=== PATIENT | male | born 1945 ===

== ENCOUNTER 2017-12-06 | Inpatient (IN) | payer MEDICAID, OTHER ==
[2017-12-06] MEDS ORDERED: Morphine 4 MG/ML VIAL ONE (01:35)
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
[2017-12-06 02:01] LABS: BASO % 0.7 % (0.0-2.0); EOS % 0.6 % (0.0-4.0); HEMOGLOBIN 9.1 g/dL (12.0-18.0); LYMPH # 0.9 K/uL (1.0-4.3); LYMPH % 14.3 % (20.0-40.0); MEAN CELL VOLUME 92.8 fl (80.0-94.0); MEAN CORPUSCULAR HEMOGLOBIN 30.1 pg (27.0-31.0); MEAN CORPUSCULAR HGB CONC 32.4 g/dL (33.0-37.0); MEAN PLATELET VOLUME 8.2 fl (7.2-11.7); MONO # 0.6 K/uL (0.0-0.8); MONO % 10.2 % (0.0-10.0); NEUT # 4.4 K/uL (1.8-7.0); NEUT % 74.2 % (50.0-75.0); RBC 3.02 Mil/uL (4.40-5.90); RED CELL DISTRIBUTION WIDTH 18.7 % (11.5-14.5)
[2017-12-06 02:09] LABS: INR 1.5 (0.9-1.2)
[2017-12-06 02:10] LABS: PARTIAL THROMBOPLASTIN TIME 29.3 Seconds (25.6-37.1)
[2017-12-06 02:26] LABS: ALB/GLOB RATIO 1.1 (1.0-2.1); ALBUMIN 3.5 g/dL (3.5-5.0); ALT/SGPT 35 U/L (21-72); AST/SGOT 20 U/L (17-59); BLOOD UREA NITROGEN 42 mg/dl (9-20); CALCIUM 8.6 mg/dL (8.4-10.2); GFR AFRICAN-AMERICAN 8; GFR NON-AFRICAN AMERICAN 6; HDL CHOLESTEROL 33 MG/DL (30-70); LDL CHOLESTEROL < 30 mg/dL (0-129)
--- NOTE | 2017-12-06 03:40 | CP.PCM.HP ---
History of Present Illness - History of Present Illness History of Present Illness: PCP: None Crowd Controller: Rudi Caldwell MD Chief complaint: Headache /Right side numbness The patient was seen and examined in the ED with his present HPI: The hx was obtained from the patient's , discussion with the ED Physician and after review of the medical chart.He is a 71 years old male with hx of ESRD on HD MWF , liver cirrhosis with Upper GI bleed twice, last admitted 6 days to the [facility] [place] discharged on Thursday with Dx of upper GI bleed from esophageal Varices. EGD and Transfusion of 2 PRBC was done prior to DC. He comes referring 6 days now of left sided headache an d3 days of numbness to the right lower, upper extremities with chills and fever on some days. the family also referred a brief episode of right upper extremity weakness that has resolved and slurred speech which leave only difficulty to find words. No SOB, Chest Pain, Diarrhea, and he is oliguric. In The ED his NIHSS score was 0 PMH: ESRD on HD MWF; HTN; Liver Cirrhosis; with Esophageal Varices; Upper GI bleed X2; Right wrist with foreign body, Metal? PSH: EGD X2; Left A-V Shunt SH: Stopped drinking Alcohol 7 years ago; Former Smoker; no Illegal drug use; Live with FH: States: No Known Family Hx, Unknown Family Hx Allergies: NKDA Medication: Reviewed Present on Admission - Present on Admission Any Indicators Present on Admission: No History of DVT/PE: No History of Uncontrolled Diabetes: No Urinary Catheter: No Decubitus Ulcer Present: No Review of Systems - Review of Systems Review of Systems: Review of system is limited because of the patients poor Communication and CVA. Past Patient History - Past Medical History & Family History Past Medical History?: Yes - Past Social History Smoking Status: Former Smoker Chewing Tobacco Use: No Alcohol: Other Drugs: Denies Home Situation {Lives}: With Family - CARDIAC Hx Hypertension: Yes - PULMONARY Hx Respiratory Disorders: No - NEUROLOGICAL Hx Neurological Disorder: No - HEENT Hx HEENT Problems: No - RENAL Hx Chronic Kidney Disease: Yes - ENDOCRINE/METABOLIC Hx Endocrine Disorders: No - HEMATOLOGICAL/ONCOLOGICAL Hx Blood Disorders: No - INTEGUMENTARY Hx Dermatological Problems: No - MUSCULOSKELETAL/RHEUMATOLOGICAL Hx Musculoskeletal Disorders: No Hx Falls: No - GASTROINTESTINAL Hx Gastrointestinal Disorders: No - GENITOURINARY/GYNECOLOGICAL Hx Genitourinary Disorders: No - PSYCHIATRIC Hx Psychophysiologic Disorder: No Hx Substance Use: No - SURGICAL HISTORY Hx Surgeries: Yes Other/Comment: Left AV shunt - ANESTHESIA Hx Anesthesia: No Meds Allergies/Adverse Reactions: Allergies Allergy/AdvReac Type Severity Reaction Status Date / Time No Known Allergies Allergy Verified 12/06/17 03:41 Physical Exam - Constitutional Appears: In Acute Distress - Head Exam Head Exam: ATRAUMATIC, NORMAL INSPECTION, NORMOCEPHALIC - Eye Exam Eye Exam: EOMI, Normal appearance Pupil Exam: NORMAL ACCOMODATION, PERRL - ENT Exam ENT Exam: Mucous Membranes Moist, Normal Exam, Normal External Ear Exam - Neck Exam Neck exam: Positive for: Full Rom, Normal Inspection - Respiratory Exam Respiratory Exam: Clear to Auscultation Bilateral. absent: Rales, Rhonchi, Wheezes - Cardiovascular Exam Cardiovascular Exam: +S1, +S2, +S4 - GI/Abdominal Exam GI & Abdominal Exam: Normal Bowel Sounds, Soft. absent: Mass, Tenderness - Rectal Exam Rectal Exam: Deferred - Extremities Exam Extremities exam: Positive for: normal inspection. Negative for: calf tenderness, full ROM, joint swelling - Back Exam Back exam: CVA tenderness (L), CVA tenderness (R). absent: NORMAL INSPECTION - Neurological Exam Additional comments: Awake and alert, no facial droop, Motor strength conserved, no slurring of speech. poor word finding - Psychiatric Exam Psychiatric exam: Normal Affect, Normal Mood - Skin Skin Exam: Dry, Intact, Normal Color, Warm Results - Vital Signs Recent Vital Signs: Last Vital Signs Temp 98.9 F 12/06/17 01:00 Pulse 64 12/06/17 01:00 Resp 16 12/06/17 01:00 BP 168/81 H 12/06/17 01:00 Pulse Ox 98 12/06/17 03:35 - Labs Result Diagrams: 12/06/17 01:56 12/06/17 01:56 Labs: Laboratory Results - last 24 hr 12/06/17 12/06/17 12/06/17 01:45 01:51 01:56 WBC 6.0 RBC 3.02 L Hgb 9.1 L Hct 28.0 L MCV 92.8 MCH 30.1 MCHC 32.4 L RDW 18.7 H Plt Count 87 L MPV 8.2 Neut % (Auto) 74.2 Lymph % (Auto) 14.3 L [place] % (Auto) 10.2 H Eos % (Auto) 0.6 Baso % (Auto) 0.7 Neut # 4.4 Lymph # 0.9 L [place] # 0.6 Eos # 0.0 Baso # 0.0 PT INR APTT Sodium Potassium Chloride Carbon Dioxide Anion Gap BUN Creatinine Est GFR ( Amer) Est GFR (Non-Af Amer) POC Glucose (mg/dL) 106 Random Glucose Calcium Total Bilirubin AST ALT Alkaline Phosphatase Troponin I Total Protein Albumin Globulin Albumin/Globulin Ratio Triglycerides Cholesterol LDL Cholesterol Direct HDL Cholesterol Blood Type A POSITIVE Antibody Screen Negative BBK History Checked No verified bt 12/06/17 12/06/17 01:56 01:56 WBC RBC Hgb Hct MCV MCH MCHC RDW Plt Count MPV Neut % (Auto) Lymph % (Auto) [place] % (Auto) Eos % (Auto) Baso % (Auto) Neut # Lymph # [place] # Eos # Baso # PT 17.0 H INR 1.5 H APTT 29.3 Sodium 137 Potassium 4.6 Chloride 96 L Carbon Dioxide 29 Anion Gap 17 BUN 42 H Creatinine 8.4 H* Est GFR ( Amer) 8 Est GFR (Non-Af Amer) 6 POC Glucose (mg/dL) Random Glucose 107 Calcium 8.6 Total Bilirubin 1.0 AST 20 ALT 35 Alkaline Phosphatase 162 H Troponin I 0.0170 Total Protein 6.6 Albumin 3.5 Globulin 3.2 Albumin/Globulin Ratio 1.1 Triglycerides 73 Cholesterol 96 LDL Cholesterol Direct < 30 HDL Cholesterol 33 Blood Type Antibody Screen BBK History Checked - Imaging and Cardiology CT scan - head Status: Image reviewed by me, Report reviewed by me Additional comment: EXAM: CT Head Without Intravenous Contrast EXAM DATE/TIME: 12/06/2017 1:22 AM FINDINGS: Brain: There is a septated predominantly simple fluid left extra-axial fluid collection measuring 2.2 cm in greatest thickness; a trace amount of hemorrhage within this collection is suspected. No evidence of acute infarct. No intraparenchymal hemorrhage. Midline shift: 0.5 cm rightward midline shift. Ventricles: Unremarkable. No ventriculomegaly. Bones/joints: No acute osseous abnormality. Soft tissues: No soft tissue swelling. Sinuses: Visualized paranasal sinuses are clear. Mastoid air cells: Mastoid air cells are well-aerated. IMPRESSION: 1. There is a septated predominantly simple fluid left extra-axial fluid collection measuring 2.2 cm in greatest thickness; a trace amount of hemorrhage within this collection is suspected. Subdural hygroma, acute on chronic subdural hematoma and empyema are considered. Consider contrastenhanced CT or MRI if prior studies are not available. 2. 0.5 cm rightward midline shift. Assessment & Plan - Assessment and Plan (Free Text) Assessment: #. CVA #. Subdurral Hematoma #. Subdural Hygroma #. Anemia #. Liver cirrhosis Plan: 71 years old male with hx of ESRD on HD MWF , comes referring 6 days now of left sided headache an d3 days of numbness to the right lower, upper extremities with chills and fever on some days. the family also referred a brief episode of right upper extremity weakness that has resolved and slurred speech which leave only difficulty to find words. In The ED his NIHSS score was 0 #. 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 no MRI because of hx of piece of metal in the right wrist - Coagulopathy with Thrombocytopenia (chronic) and INT of 1.5 - Consult Dr Lin for hematology clearance - Vitamin K 10mg SubQ - Transfuse 1 unit of FFP - Follow INR #. Anemia of chronic disease - Follow Hb #. ESRD on HD MWF - Consult Dr Caldwell Nephrolog #. Hx of Alcoholic liver Cirrhosis - conservative management - Propranol for esophageal varices when patient begins to take oral medication #. Stress ulcer Prophylaxis with Pantoprazol #. DVT Prophylaxis with SCD #. Code Status: Full - Date & Time Date: 12/06/17 Time: 03:40
[2017-12-06] MEDS ORDERED: Phytonadione 10 mg/ml Inj (Adult) SC STA (07:50)
[2017-12-06] MEDS: Sodium Chloride 0.9% 1,000 ML IV SCH (08:22)
--- NOTE | 2017-12-06 08:25 | CP.PCM.CON ---
History of Present Illness - History of Present Illness History of Present Illness: HPI: Mr. Manzanares was admitted last night to ICU. He is a 71 years old male with hx of ESRD on HD MWF , liver cirrhosis with Upper GI bleed twice, last [place] [facility] [place] on [place] with Dx of upper GI bleed from esophageal Varices. EGD and Transfusion of 2 PRBC was done prior to DC. He comes referring 6 days now of left sided headache an d3 days of numbness to the right lower, upper extremities with chills and fever on some days. the family also referred a brief episode of right upper extremity weakness that has resolved and slurred speech which leave only difficulty to find words. No SOB, Chest Pain, Diarrhea, and he is oliguric. In The ED his NIHSS score was 0 Review of Systems - Review of Systems Systems not reviewed;Unavailable: Other - Constitutional Constitutional: Headache - EENT Eyes: As Per HPI - Cardiovascular Cardiovascular: Lightheadedness - Gastrointestinal Gastrointestinal: As Per HPI - Musculoskeletal Musculoskeletal: Arthralgias - Neurological Neurological: Weakness Past Patient History - Past Medical History & Family History Past Medical History?: Yes - Past Social History Smoking Status: Former Smoker Chewing Tobacco Use: No Alcohol: Other Drugs: Denies Home Situation {Lives}: With Family - CARDIAC Hx Hypertension: Yes - PULMONARY Hx Respiratory Disorders: No - NEUROLOGICAL Hx Neurological Disorder: No - HEENT Hx HEENT Problems: No - RENAL Hx Chronic Kidney Disease: Yes - ENDOCRINE/METABOLIC Hx Endocrine Disorders: No - HEMATOLOGICAL/ONCOLOGICAL Hx Blood Disorders: No - INTEGUMENTARY Hx Dermatological Problems: No - MUSCULOSKELETAL/RHEUMATOLOGICAL Hx Musculoskeletal Disorders: No Hx Falls: No - GASTROINTESTINAL Hx Gastrointestinal Disorders: No - GENITOURINARY/GYNECOLOGICAL Hx Genitourinary Disorders: No - PSYCHIATRIC Hx Psychophysiologic Disorder: No Hx Substance Use: No - SURGICAL HISTORY Hx Surgeries: Yes Other/Comment: Left AV shunt - ANESTHESIA Hx Anesthesia: No Meds Allergies/Adverse Reactions: Allergies Allergy/AdvReac Type Severity Reaction Status Date / Time No Known Allergies Allergy Verified 12/06/17 03:41 - Medications Medications: Current Medications Calcium Acetate (Phoslo) 667 mg PO TID SAMAN Sodium Chloride (Sodium Chloride 0.9%) 1,000 mls @ 44 mls/hr IV .[id number] [facility] Stop: 01/22/18 06:41 Last Admin: 12/06/17 08:22 Dose: 44 mls/hr Pantoprazole Sodium (Protonix Ec Tab) 40 mg PO DAILY [facility] Pantoprazole Sodium (Protonix Inj) 40 mg IVP DAILY [facility] Last Admin: 12/06/17 08:22 Dose: 40 mg Phytonadione (Vitamin K Inj) 10 mg SC STAT STA Stop: 12/06/17 07:51 Propranolol HCl (Inderal) 20 mg PO BID [facility] Sucralfate (Carafate Tab) 1 gm PO BID [facility] Valsartan (Diovan) 320 mg PO DAILY [facility] Physical Exam - Head Exam Head Exam: ATRAUMATIC - Eye Exam Pupil Exam: PERRL - Neck Exam Neck exam: Positive for: Full Rom - Respiratory Exam Respiratory Exam: NORMAL BREATHING PATTERN - Cardiovascular Exam Cardiovascular Exam: REGULAR RHYTHM - Extremities Exam Extremities exam: Positive for: full ROM, normal inspection - Neurological Exam Neurological exam: Oriented x3 Results - Vital Signs Recent Vital Signs: Last Vital Signs Temp 98.7 F 12/06/17 05:39 Pulse 57 L 12/06/17 05:42 Resp 18 12/06/17 05:42 BP 147/66 12/06/17 05:39 Pulse Ox 98 12/06/17 05:42 - Labs Result Diagrams: 12/06/17 01:56 12/06/17 01:56 Labs: Laboratory Results - last 24 hr 12/06/17 12/06/17 12/06/17 01:45 01:51 01:56 WBC 6.0 RBC 3.02 L Hgb 9.1 L Hct 28.0 L MCV 92.8 MCH 30.1 MCHC 32.4 L RDW 18.7 H Plt Count 87 L MPV 8.2 Neut % (Auto) 74.2 Lymph % (Auto) 14.3 L [place] % (Auto) 10.2 H Eos % (Auto) 0.6 Baso % (Auto) 0.7 Neut # 4.4 Lymph # 0.9 L [place] # 0.6 Eos # 0.0 Baso # 0.0 PT INR APTT Sodium Potassium Chloride Carbon Dioxide Anion Gap BUN Creatinine Est GFR ( Amer) Est GFR (Non-Af Amer) POC Glucose (mg/dL) 106 Random Glucose Calcium Total Bilirubin AST ALT Alkaline Phosphatase Troponin I Total Protein Albumin Globulin Albumin/Globulin Ratio Triglycerides Cholesterol LDL Cholesterol Direct HDL Cholesterol Blood Type A POSITIVE Blood Type Confirm Antibody Screen Negative BBK History Checked No verified bt 12/06/17 12/06/17 12/06/17 01:56 01:56 02:41 WBC RBC Hgb Hct MCV MCH MCHC RDW Plt Count MPV Neut % (Auto) Lymph % (Auto) [place] % (Auto) Eos % (Auto) Baso % (Auto) Neut # Lymph # [place] # Eos # Baso # PT 17.0 H INR 1.5 H APTT 29.3 Sodium 137 Potassium 4.6 Chloride 96 L Carbon Dioxide 29 Anion Gap 17 BUN 42 H Creatinine 8.4 H* Est GFR ( Amer) 8 Est GFR (Non-Af Amer) 6 POC Glucose (mg/dL) Random Glucose 107 Calcium 8.6 Total Bilirubin 1.0 AST 20 ALT 35 Alkaline Phosphatase 162 H Troponin I 0.0170 Total Protein 6.6 Albumin 3.5 Globulin 3.2 Albumin/Globulin Ratio 1.1 Triglycerides 73 Cholesterol 96 LDL Cholesterol Direct < 30 HDL Cholesterol 33 Blood Type Blood Type Confirm A POSITIVE Antibody Screen BBK History Checked Assessment & Plan - Assessment and Plan (Free Text) Assessment: ESRD Left sided subdural hematoma Cirrhosis h/o GIB Anemia Mild thromobocytopenia Plan: Neurosurgery evaluation On one vancomycin, CT report raised possibility of infection , clinically not infective , thierry consult ID HD MWF: consulted accounts receivable coordinator [facility]: if going for surgery, INR is slightly higher, due to cirrhosis NPO for the time being, will DC NPO, if no plan for surgery today, IVF D5NS at 50 cc/h
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
[2017-12-06] MEDS ORDERED: Phytonadione 10 mg/ml Inj (Adult) SC ONE (08:54)
--- NOTE | 2017-12-06 09:40 | RAD ---
HISTORY: R sided weakness COMPARISON: No prior. FINDINGS: LUNGS: No active pulmonary disease. PLEURA: No significant pleural effusion identified, no pneumothorax apparent. CARDIOVASCULAR: Cardiac silhouette appears prominent. This may be a function of technical magnification. Clinically correlate. No pulmonary vascular derangement identified. OSSEOUS STRUCTURES: No significant abnormalities. VISUALIZED UPPER ABDOMEN: Normal. OTHER FINDINGS: Ileus the lip subclavian/ brachycephalic region wall stents identified at the superior left chest. IMPRESSION: No acute pulmonary disease appreciable. Prominent cardiac silhouette, possibly technically magnified. Left brachiocephalic/subclavian region wall stents identified.
[2017-12-06] MEDS ORDERED: Phenytoin 100 mg/2 ml Inj IVP STA (09:53)
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
[2017-12-06] MEDS ORDERED: Phenytoin 1,000 MG in Sodium Chloride 0.9% 100 ML IVP ONE (10:15)
--- NOTE | 2017-12-06 10:57 | CT ---
PROCEDURE: CT HEAD WITHOUT CONTRAST. HISTORY: PAYNE, R sided weakness COMPARISON: None available. TECHNIQUE: Axial computed tomography images were obtained through the head/brain without intravenous contrast. Radiation dose: Total exam DLP = 825.47 mGy-cm. This CT exam was performed using one or more of the following dose reduction techniques: Automated exposure control, adjustment of the mA and/or kV according to patient size, and/or use of iterative reconstruction technique. FINDINGS: HEMORRHAGE: Chronic subdural hematoma is appreciated at the left fronto parietal distribution measure approximately 1.9 cm greatest transverse dimension with a marginal rightward midline shift of 5 mm appreciable. No acute intracranial hemorrhage is identified and there are in fact no subacute elements appreciated at this time either. Basilar cisterns are widely patent with the brainstem uncompromised. Local mass effect effaces numerous left cerebral hemispheric sulci primarily at the mid and inferior distribution. BRAIN: Mild diffuse cerebral atrophy is appreciated. The remaining brain is unremarkable in appearance overall aside from midline shift described in section above. VENTRICLES: Moderate effacement of the left lateral ventricle is appreciated with the remainder of the ventricular system unremarkable. No hydrocephalus. CALVARIUM: Unremarkable. PARANASAL SINUSES: Unremarkable as visualized. No significant inflammatory changes. MASTOID AIR CELLS: Unremarkable as visualized. No inflammatory changes. OTHER FINDINGS: None. IMPRESSION: A chronic left subdural hematoma is appreciated with limited rightward midline shift less than 1 cm as described above. No definite acute intracranial hemorrhage is appreciable. There the hematoma appears moderately septated. The basilar cisterns are widely patent though subfalcine herniation is as described above. Moderate effacement of the left lateral ventricle is appreciated. Mild age related neuro degenerative changes are identified. Follow-up CT and clinical correlation are advised. Concordant preliminary report from [facility], 12/06/2017.
[2017-12-06] MEDS ORDERED: Phytonadione 10 MG in Sodium Chloride 0.9% 50 ML IV ONE ×2 (11:00→11:45)
--- NOTE | 2017-12-06 14:54 | CP.PCM.CON ---
History of Present Illness - History of Present Illness History of Present Illness: RENAL CONSULT IMP:ESRD/ Subdural Hematoma/ Anemia of Renal diseae/ Cirrhosis/ Coagulopathy/ Hypertensive kidney diseaes/ Seizure/Secondary hyperparathyroid/ Hyperphosphatemia plan: HD tomorrow reviewed imaging w/ neurosurgery - depending on coags possible surgery this week Monitor H and h , will continue procrit w/ hd coagulopathy - heme to eval the pt BP controlled check phos, continue calcium acetate seizure per ICU/Neurosurg Consult fo ESRd HPI: HPI: 71 yo M w/ pmh of ESRD, Subdural hematoma, Cirrhosis that presented w/ headache for the last several days associated w/ numbness in his Right upper and lower extremieis. also states he was being forgetful and had some slurred sppech. He presented to ER where he was found to have subdural and admitted to ICU for furthe evaluation .He was still having a mild PAYNE on our evaluation. he denies any n/v. He denies any fever or chills. He had a witnessed seizure while I was present in ICU that was attended to by shot blast equipment operator. A full detailed ROS is negative except as in my hpi PMH: ESRD on HD MWF; HTN; Liver Cirrhosis; GIB SH: Stopped drinking Alcohol 7 years ago; Former Smoker; no Illegal drug use; Live with FH: no esrd Allergies: NKDA Medication: Reviewed imaging reviewed PE: VSS gen: nad sclera anicteric op clear neck supple cv+s1+s2 lungs cta abd soft ext no edema neuro alert follows commands R sided weakness psych nml affect skin no rash Past Patient History - Past Medical History & Family History Past Medical History?: Yes - Past Social History Smoking Status: Former Smoker Chewing Tobacco Use: No Alcohol: Other Drugs: Denies Home Situation {Lives}: With Family - CARDIAC Hx Hypertension: Yes - PULMONARY Hx Respiratory Disorders: No - NEUROLOGICAL Hx Neurological Disorder: No - HEENT Hx HEENT Problems: No - RENAL Hx Chronic Kidney Disease: Yes - ENDOCRINE/METABOLIC Hx Endocrine Disorders: No - HEMATOLOGICAL/ONCOLOGICAL Hx Blood Disorders: No - INTEGUMENTARY Hx Dermatological Problems: No - MUSCULOSKELETAL/RHEUMATOLOGICAL Hx Musculoskeletal Disorders: No Hx Falls: No - GASTROINTESTINAL Hx Gastrointestinal Disorders: No - GENITOURINARY/GYNECOLOGICAL Hx Genitourinary Disorders: No - PSYCHIATRIC Hx Psychophysiologic Disorder: No Hx Substance Use: No - SURGICAL HISTORY Hx Surgeries: Yes Other/Comment: Left AV shunt - ANESTHESIA Hx Anesthesia: No Meds Allergies/Adverse Reactions: Allergies Allergy/AdvReac Type Severity Reaction Status Date / Time No Known Allergies Allergy Verified 12/06/17 03:41 - Medications Medications: Current Medications Calcium Acetate (Phoslo) 667 mg PO TID [facility] Sodium Chloride (Sodium Chloride 0.9%) 1,000 mls @ 44 mls/hr IV .[id number] [facility] Stop: 12/07/17 06:41 Last Admin: 12/06/17 08:22 Dose: 44 mls/hr Desmopressin Acetate 15 mcg/ (Sodium Chloride) 53.75 mls @ 107.5 mls/hr IV ONCE ONE Stop: 12/07/17 12:29 Phytonadione 10 mg/ Sodium (Chloride) 51 mls @ 102 mls/hr IV ONCE@1000 ONE Stop: 12/07/17 10:29 Pantoprazole Sodium (Protonix Ec Tab) 40 mg PO DAILY [facility] Pantoprazole Sodium (Protonix Inj) 40 mg IVP DAILY [facility] Last Admin: 12/06/17 08:22 Dose: 40 mg Propranolol HCl (Inderal) 20 mg PO BID [facility] Sucralfate (Carafate Tab) 1 gm PO BID [facility] Valsartan (Diovan) 320 mg PO DAILY [facility] Results - Vital Signs Recent Vital Signs: Last Vital Signs Temp 97.7 F 12/06/17 12:00 Pulse 52 L 12/06/17 14:00 Resp 16 12/06/17 14:00 BP 110/66 12/06/17 14:00 Pulse Ox 100 12/06/17 14:00 - Labs Result Diagrams: 12/06/17 01:56 12/06/17 01:56 Labs: Laboratory Results - last 24 hr 12/06/17 12/06/17 12/06/17 01:45 01:51 01:56 WBC 6.0 RBC 3.02 L Hgb 9.1 L Hct 28.0 L MCV 92.8 MCH 30.1 MCHC 32.4 L RDW 18.7 H Plt Count 87 L MPV 8.2 Neut % (Auto) 74.2 Lymph % (Auto) 14.3 L Pratt % (Auto) 10.2 H Eos % (Auto) 0.6 Baso % (Auto) 0.7 Neut # 4.4 Lymph # 0.9 L Pratt # 0.6 Eos # 0.0 Baso # 0.0 PT INR APTT Sodium Potassium Chloride Carbon Dioxide Anion Gap BUN Creatinine Est GFR ( Amer) Est GFR (Non-Af Amer) POC Glucose (mg/dL) 106 Random Glucose Calcium Total Bilirubin AST ALT Alkaline Phosphatase Troponin I Total Protein Albumin Globulin Albumin/Globulin Ratio Triglycerides Cholesterol LDL Cholesterol Direct HDL Cholesterol Phenytoin Blood Type A POSITIVE Blood Type Confirm Antibody Screen Negative BBK History Checked No verified bt 12/06/17 12/06/17 12/06/17 01:56 01:56 02:41 WBC RBC Hgb Hct MCV MCH MCHC RDW Plt Count MPV Neut % (Auto) Lymph % (Auto) Pratt % (Auto) Eos % (Auto) Baso % (Auto) Neut # Lymph # Pratt # Eos # Baso # PT 17.0 H INR 1.5 H APTT 29.3 Sodium 137 Potassium 4.6 Chloride 96 L Carbon Dioxide 29 Anion Gap 17 BUN 42 H Creatinine 8.4 H* Est GFR ( Amer) 8 Est GFR (Non-Af Amer) 6 POC Glucose (mg/dL) Random Glucose 107 Calcium 8.6 Total Bilirubin 1.0 AST 20 ALT 35 Alkaline Phosphatase 162 H Troponin I 0.0170 Total Protein 6.6 Albumin 3.5 Globulin 3.2 Albumin/Globulin Ratio 1.1 Triglycerides 73 Cholesterol 96 LDL Cholesterol Direct < 30 HDL Cholesterol 33 Phenytoin Blood Type Blood Type Confirm A POSITIVE Antibody Screen BBK History Checked 12/06/17 11:36 WBC RBC Hgb Hct MCV MCH MCHC RDW Plt Count MPV Neut % (Auto) Lymph % (Auto) Pratt % (Auto) Eos % (Auto) Baso % (Auto) Neut # Lymph # Pratt # Eos # Baso # PT INR APTT Sodium Potassium Chloride Carbon Dioxide Anion Gap BUN Creatinine Est GFR ( Amer) Est GFR (Non-Af Amer) POC Glucose (mg/dL) Random Glucose Calcium Total Bilirubin AST ALT Alkaline Phosphatase Troponin I Total Protein Albumin Globulin Albumin/Globulin Ratio Triglycerides Cholesterol LDL Cholesterol Direct HDL Cholesterol Phenytoin 13.1 Blood Type Blood Type Confirm Antibody Screen BBK History Checked
[2017-12-06] MEDS ORDERED: Phenytoin 100 mg/4 ml Oral Susp UD PO SCH (17:00)
--- NOTE | 2017-12-06 17:17 | CARD ---
APPROVED REPORT EKG Measurement Heart [id number] <Conclusion> Sinus rhythm with premature atrial complexes Otherwise normal ECG
--- NOTE | 2017-12-06 17:48 | CP.PCM.CON ---
History of Present Illness - History of Present Illness History of Present Illness: 71 year old male with a history of ESRD on HD, cirrhosis, chronic subdural hematoma admitted with worsening neurologic symptoms and seizure. The patients reports to noticing slurred speech and extremity paresthesias. In the ICU today he was witnessed to have a seizure. He is tentatively scheduled for neurosurgery pending correction of his thrombocytopenia and coagulopathy. Past medical history: ESRD, liver cirrhosis, subdural hematoma Past surgical history: Denies Family history: Denies hematologic and oncologic problems Social history: Former tobacco and alcohol use. Allergies: NKA Review of systems: All remaining review of systems including HEENT, cardiovascular, respiratory, gastrointestinal, genitourinary, musculoskeletal, dermatologic, neurologic, and psychiatric are negative unless mentioned in the HPI. Past Patient History - Past Medical History & Family History Past Medical History?: Yes - Past Social History Smoking Status: Former Smoker Chewing Tobacco Use: No Alcohol: Other Drugs: Denies Home Situation {Lives}: With Family - CARDIAC Hx Hypertension: Yes - PULMONARY Hx Respiratory Disorders: No - NEUROLOGICAL Hx Neurological Disorder: No - HEENT Hx HEENT Problems: No - RENAL Hx Chronic Kidney Disease: Yes - ENDOCRINE/METABOLIC Hx Endocrine Disorders: No - HEMATOLOGICAL/ONCOLOGICAL Hx Blood Disorders: No - INTEGUMENTARY Hx Dermatological Problems: No - MUSCULOSKELETAL/RHEUMATOLOGICAL Hx Musculoskeletal Disorders: No Hx Falls: No - GASTROINTESTINAL Hx Gastrointestinal Disorders: No - GENITOURINARY/GYNECOLOGICAL Hx Genitourinary Disorders: No - PSYCHIATRIC Hx Psychophysiologic Disorder: No Hx Substance Use: No - SURGICAL HISTORY Hx Surgeries: Yes Other/Comment: Left AV shunt - ANESTHESIA Hx Anesthesia: No Meds Allergies/Adverse Reactions: Allergies Allergy/AdvReac Type Severity Reaction Status Date / Time No Known Allergies Allergy Verified 12/06/17 03:41 - Medications Medications: Current Medications Calcium Acetate (Phoslo) 667 mg PO TID [facility] Last Admin: 12/06/17 17:32 Dose: 667 mg Epoetin Triston (Procrit) 4,000 unit SC MWF [facility] Sodium Chloride (Sodium Chloride 0.9%) 1,000 mls @ 44 mls/hr IV .[id number] [facility] Stop: 12/07/17 06:41 Last Admin: 12/06/17 08:22 Dose: 44 mls/hr Desmopressin Acetate 15 mcg/ (Sodium Chloride) 53.75 mls @ 107.5 mls/hr IV ONCE ONE Stop: 12/07/17 12:29 Phytonadione 10 mg/ Sodium (Chloride) 51 mls @ 102 mls/hr IV ONCE@1000 ONE Stop: 12/07/17 10:29 Pantoprazole Sodium (Protonix Ec Tab) 40 mg PO DAILY [facility] Phenytoin (Dilantin) 100 mg PO TID [facility] Last Admin: 12/06/17 17:18 Dose: 100 mg Propranolol HCl (Inderal) 20 mg PO BID [facility] Sucralfate (Carafate Tab) 1 gm PO BID [facility] Last Admin: 12/06/17 17:31 Dose: 1 gm Valsartan (Diovan) 320 mg PO DAILY [facility] Physical Exam - Head Exam Head Exam: ATRAUMATIC - Eye Exam Eye Exam: Normal appearance - ENT Exam ENT Exam: Mucous Membranes Dry - Respiratory Exam Respiratory Exam: NORMAL BREATHING PATTERN - Cardiovascular Exam Cardiovascular Exam: +S1, +S2 - GI/Abdominal Exam GI & Abdominal Exam: Normal Bowel Sounds - Extremities Exam Extremities exam: Positive for: normal inspection - Psychiatric Exam Psychiatric exam: Normal Affect, Normal Mood - Skin Skin Exam: Warm Results - Vital Signs Recent Vital Signs: Last Vital Signs Temp 97.6 F 12/06/17 15:54 Pulse 60 12/06/17 17:00 Resp 14 12/06/17 17:00 BP 124/69 12/06/17 17:00 Pulse Ox 100 12/06/17 17:00 - Labs Result Diagrams: 12/06/17 01:56 12/06/17 01:56 Labs: Laboratory Results - last 24 hr 12/06/17 12/06/17 12/06/17 01:45 01:51 01:56 WBC 6.0 RBC 3.02 L Hgb 9.1 L Hct 28.0 L MCV 92.8 MCH 30.1 MCHC 32.4 L RDW 18.7 H Plt Count 87 L MPV 8.2 Neut % (Auto) 74.2 Lymph % (Auto) 14.3 L [place] % (Auto) 10.2 H Eos % (Auto) 0.6 Baso % (Auto) 0.7 Neut # 4.4 Lymph # 0.9 L [place] # 0.6 Eos # 0.0 Baso # 0.0 PT INR APTT Sodium Potassium Chloride Carbon Dioxide Anion Gap BUN Creatinine Est GFR ( Amer) Est GFR (Non-Af Amer) POC Glucose (mg/dL) 106 Random Glucose Calcium Phosphorus Total Bilirubin AST ALT Alkaline Phosphatase Troponin I Total Protein Albumin Globulin Albumin/Globulin Ratio Triglycerides Cholesterol LDL Cholesterol Direct HDL Cholesterol Phenytoin Blood Type A POSITIVE Blood Type Confirm Antibody Screen Negative BBK History Checked No verified bt 12/06/17 12/06/17 12/06/17 01:56 01:56 02:41 WBC RBC Hgb Hct MCV MCH MCHC RDW Plt Count MPV Neut % (Auto) Lymph % (Auto) [place] % (Auto) Eos % (Auto) Baso % (Auto) Neut # Lymph # [place] # Eos # Baso # PT 17.0 H INR 1.5 H APTT 29.3 Sodium 137 Potassium 4.6 Chloride 96 L Carbon Dioxide 29 Anion Gap 17 BUN 42 H Creatinine 8.4 H* Est GFR ( Amer) 8 Est GFR (Non-Af Amer) 6 POC Glucose (mg/dL) Random Glucose 107 Calcium 8.6 Phosphorus Total Bilirubin 1.0 AST 20 ALT 35 Alkaline Phosphatase 162 H Troponin I 0.0170 Total Protein 6.6 Albumin 3.5 Globulin 3.2 Albumin/Globulin Ratio 1.1 Triglycerides 73 Cholesterol 96 LDL Cholesterol Direct < 30 HDL Cholesterol 33 Phenytoin Blood Type Blood Type Confirm A POSITIVE Antibody Screen BBK History Checked 12/06/17 12/06/17 11:36 16:27 WBC RBC Hgb Hct MCV MCH MCHC RDW Plt Count MPV Neut % (Auto) Lymph % (Auto) [place] % (Auto) Eos % (Auto) Baso % (Auto) Neut # Lymph # [place] # Eos # Baso # PT INR APTT Sodium Potassium Chloride Carbon Dioxide Anion Gap BUN Creatinine Est GFR ( Amer) Est GFR (Non-Af Amer) POC Glucose (mg/dL) Random Glucose Calcium Phosphorus 4.4 Total Bilirubin AST ALT Alkaline Phosphatase Troponin I Total Protein Albumin Globulin Albumin/Globulin Ratio Triglycerides Cholesterol LDL Cholesterol Direct HDL Cholesterol Phenytoin 13.1 Blood Type Blood Type Confirm Antibody Screen BBK History Checked Assessment & Plan (1) Coagulopathy Assessment and Plan: secondary to liver cirrhosis may have nutritional component; s/p vit k IV 2U FFP to be transfused on the day of surgery goal INR < 1.5 Status: Acute (2) Thrombocytopenia Assessment and Plan: liver cirrhosis, splenomegaly causing sequestration to receive 1 bag platelets on day of surgery will need desmopressin 0.3mcg/kg IV 2 hours prior to OR given uremic platelets goal platelets at least 100,000 Status: Acute (3) Anemia Assessment and Plan: renal disease on EPO likely occult GI blood loss from pHTN Thank you for this interesting consult. Status: Acute
--- NOTE | 2017-12-06 18:44 | CP.PCM.CON ---
History of Present Illness - History of Present Illness History of Present Illness: Mr. Manzanares is a 71-year-old man with a past medical history of ESRD, on HD, cirrhosis, who has a chronic subdural hemorrhage on the left side, and presented with worsening headache/nausea and had a witnessed seizure in the ICU. He was loaded with dilantin. He continues to complain of an 8/10 left sided headache, constant, pulsating and pressure like. Review of Systems - Review of Systems All systems: reviewed and no additional remarkable complaints except Past Patient History - Past Medical History & Family History Past Medical History?: Yes - Past Social History Smoking Status: Former Smoker Chewing Tobacco Use: No Alcohol: Other Drugs: Denies Home Situation {Lives}: With Family - CARDIAC Hx Hypertension: Yes - PULMONARY Hx Respiratory Disorders: No - NEUROLOGICAL Hx Neurological Disorder: No - HEENT Hx HEENT Problems: No - RENAL Hx Chronic Kidney Disease: Yes - ENDOCRINE/METABOLIC Hx Endocrine Disorders: No - HEMATOLOGICAL/ONCOLOGICAL Hx Blood Disorders: No - INTEGUMENTARY Hx Dermatological Problems: No - MUSCULOSKELETAL/RHEUMATOLOGICAL Hx Musculoskeletal Disorders: No Hx Falls: No - GASTROINTESTINAL Hx Gastrointestinal Disorders: No - GENITOURINARY/GYNECOLOGICAL Hx Genitourinary Disorders: No - PSYCHIATRIC Hx Psychophysiologic Disorder: No Hx Substance Use: No - SURGICAL HISTORY Hx Surgeries: Yes Other/Comment: Left AV shunt - ANESTHESIA Hx Anesthesia: No Meds Allergies/Adverse Reactions: Allergies Allergy/AdvReac Type Severity Reaction Status Date / Time No Known Allergies Allergy Verified 12/06/17 03:41 - Medications Medications: Current Medications Calcium Acetate (Phoslo) 667 mg PO TID [facility] Last Admin: 12/06/17 17:32 Dose: 667 mg Epoetin Triston (Procrit) 4,000 unit SC F [facility] Sodium Chloride (Sodium Chloride 0.9%) 1,000 mls @ 44 mls/hr IV .[id number] [facility] Stop: 12/07/17 06:41 Last Admin: 12/06/17 08:22 Dose: 44 mls/hr Desmopressin Acetate 15 mcg/ (Sodium Chloride) 53.75 mls @ 107.5 mls/hr IV ONCE ONE Stop: 12/07/17 12:29 Phytonadione 10 mg/ Sodium (Chloride) 51 mls @ 102 mls/hr IV ONCE@1000 ONE Stop: 12/07/17 10:29 Valproate Sodium 500 mg/ (Sodium Chloride) 105 mls @ 105 mls/hr IVPB Q12 [facility] PRN Reason: As Directed Pantoprazole Sodium (Protonix Ec Tab) 40 mg PO DAILY [facility] Propranolol HCl (Inderal) 20 mg PO BID [facility] Sucralfate (Carafate Tab) 1 gm PO BID [facility] Last Admin: 12/06/17 17:31 Dose: 1 gm Valsartan (Diovan) 320 mg PO DAILY [facility] Physical Exam - Constitutional Appears: Well - Head Exam Head Exam: ATRAUMATIC, NORMAL INSPECTION, NORMOCEPHALIC - Eye Exam Eye Exam: EOMI, Normal appearance, PERRL - ENT Exam ENT Exam: Mucous Membranes Moist, Normal Exam - Respiratory Exam Respiratory Exam: Clear to Auscultation Bilateral, NORMAL BREATHING PATTERN - Cardiovascular Exam Cardiovascular Exam: +S1, +S2 - Rectal Exam Rectal Exam: Deferred - Neurological Exam Neurological exam: Alert, CN II-XII Intact, Oriented x3, Reflexes Normal Additional comments: Gait not assessed, mild right-sided pronator drift noted. Results - Vital Signs Recent Vital Signs: Last Vital Signs Temp 97.6 F 12/06/17 15:54 Pulse 60 12/06/17 17:00 Resp 14 12/06/17 17:00 BP 124/69 12/06/17 17:00 Pulse Ox 100 12/06/17 17:00 - Labs Result Diagrams: 12/06/17 01:56 12/06/17 01:56 Labs: Laboratory Results - last 24 hr 12/06/17 12/06/17 12/06/17 01:45 01:51 01:56 WBC 6.0 RBC 3.02 L Hgb 9.1 L Hct 28.0 L MCV 92.8 MCH 30.1 MCHC 32.4 L RDW 18.7 H Plt Count 87 L MPV 8.2 Neut % (Auto) 74.2 Lymph % (Auto) 14.3 L [place] % (Auto) 10.2 H Eos % (Auto) 0.6 Baso % (Auto) 0.7 Neut # 4.4 Lymph # 0.9 L [place] # 0.6 Eos # 0.0 Baso # 0.0 PT INR APTT Sodium Potassium Chloride Carbon Dioxide Anion Gap BUN Creatinine Est GFR ( Amer) Est GFR (Non-Af Amer) POC Glucose (mg/dL) 106 Random Glucose Calcium Phosphorus Total Bilirubin AST ALT Alkaline Phosphatase Troponin I Total Protein Albumin Globulin Albumin/Globulin Ratio Triglycerides Cholesterol LDL Cholesterol Direct HDL Cholesterol Phenytoin Blood Type A POSITIVE Blood Type Confirm Antibody Screen Negative BBK History Checked No verified bt 12/06/17 12/06/17 12/06/17 01:56 01:56 02:41 WBC RBC Hgb Hct MCV MCH MCHC RDW Plt Count MPV Neut % (Auto) Lymph % (Auto) [place] % (Auto) Eos % (Auto) Baso % (Auto) Neut # Lymph # [place] # Eos # Baso # PT 17.0 H INR 1.5 H APTT 29.3 Sodium 137 Potassium 4.6 Chloride 96 L Carbon Dioxide 29 Anion Gap 17 BUN 42 H Creatinine 8.4 H* Est GFR ( Amer) 8 Est GFR (Non-Af Amer) 6 POC Glucose (mg/dL) Random Glucose 107 Calcium 8.6 Phosphorus Total Bilirubin 1.0 AST 20 ALT 35 Alkaline Phosphatase 162 H Troponin I 0.0170 Total Protein 6.6 Albumin 3.5 Globulin 3.2 Albumin/Globulin Ratio 1.1 Triglycerides 73 Cholesterol 96 LDL Cholesterol Direct < 30 HDL Cholesterol 33 Phenytoin Blood Type Blood Type Confirm A POSITIVE Antibody Screen BBK History Checked 12/06/17 12/06/17 11:36 16:27 WBC RBC Hgb Hct MCV MCH MCHC RDW Plt Count MPV Neut % (Auto) Lymph % (Auto) [place] % (Auto) Eos % (Auto) Baso % (Auto) Neut # Lymph # [place] # Eos # Baso # PT INR APTT Sodium Potassium Chloride Carbon Dioxide Anion Gap BUN Creatinine Est GFR ( Amer) Est GFR (Non-Af Amer) POC Glucose (mg/dL) Random Glucose Calcium Phosphorus 4.4 Total Bilirubin AST ALT Alkaline Phosphatase Troponin I Total Protein Albumin Globulin Albumin/Globulin Ratio Triglycerides Cholesterol LDL Cholesterol Direct HDL Cholesterol Phenytoin 13.1 Blood Type Blood Type Confirm Antibody Screen BBK History Checked Assessment & Plan (1) Seizure Assessment and Plan: Will treat the patient with Depakote for seizure prophylaxis as this will also be helpful for the headaches. Will start with 500 mg Q12 hours and check levels to maintain in the therapeutic range. Will obtain an EEG for further evaluation. Currently, the patient is not post-ictal and is at baseline. Status: Acute (2) Subdural hemorrhage Assessment and Plan: Will defer to neurosurgery for possible drainage, if indicated. Status: Acute
[2017-12-06] MEDS: Valproate 500 MG in Sodium Chloride 0.9% 100 ML IVPB SCH (21:39)
--- NOTE | 2017-12-06 22:03 | CON ---
DATE: HISTORY OF PRESENT ILLNESS: This is a 71-year-old spastic male who presents with headache and complains of right-sided numbness. He was previously admitted to [facility] for upper GI bleed. He had an endoscopy. He needed two units of packed cells. He was discharged on 11/29. At that time, he complained of headache. He reports that he has been having this headache since September. He had a CAT scan in September at the [facility] showing a small left subdural hematoma. Last night, he returns to this ER complaining of headache and repeat CT shows increasing size of the subdural hematoma, chronic in nature, with mass effect. He has a history of alcoholism. He is in chronic renal failure, he has cirrhosis, he has esophageal varices. ALLERGIES: HE HAS NO ALLERGIES. On admission, his INR was 1.5 and his platelets were 88,000. After I examined him and left the room, he had a grand mal seizure, which was resolved with Ativan. He is scheduled to be given a gram of Dilantin followed by standard doses of Keppra. At this point, he was awake, alert, oriented, talking cooperatively, answering questions, moving all extremities, has no drift, no elicitable sensory deficits and reflexes were 1/4. His pupils were equal, his EOMs were full, his face was symmetric, and his tongue was midline. PLAN: My plan is that he is scheduled to have dialysis tomorrow. He needs medical workup to see if we can get a prolonged reversal of his INR back to normal and his platelet is up to approximately 100,000. For surgery, I spoke to the . I explained the procedure including , neurologic deficit, altered mental status as complication of the surgery. She understands and agrees to undergoing the craniotomy and left-sided evacuation of subdural hematoma. I explained to her that if we cannot get the INR back to normal, then we need to discuss the increased risk of operating without having normal coags because there is significant increased risk of bleeding should we proceed with this operation. I will be in touch with Dr. Acevedo, Dr. Lin tomorrow to obtain their input and we will proceed accordingly. Erick Allred MD
[2017-12-07 05:23] LABS: BASO % 0.8 % (0.0-2.0); EOS # 0.1 K/uL (0.0-0.7); EOS % 1.1 % (0.0-4.0); HEMOGLOBIN 8.3 g/dL (12.0-18.0); LYMPH # 0.8 K/uL (1.0-4.3); LYMPH % 16.6 % (20.0-40.0); MEAN CELL VOLUME 92.6 fl (80.0-94.0); MEAN CORPUSCULAR HEMOGLOBIN 30.4 pg (27.0-31.0); MEAN CORPUSCULAR HGB CONC 32.8 g/dL (33.0-37.0); MONO # 0.4 K/uL (0.0-0.8); MONO % 8.3 % (0.0-10.0); NEUT # 3.7 K/uL (1.8-7.0); NEUT % 73.2 % (50.0-75.0); NRBC % 0.1 % (0.0-0.0); RBC 2.73 Mil/uL (4.40-5.90); RED CELL DISTRIBUTION WIDTH 18.8 % (11.5-14.5); WHITE BLOOD COUNT 5.1 K/uL (4.8-10.8)
[2017-12-07 06:30] LABS: CALCIUM 8.3 mg/dL (8.4-10.2); MAGNESIUM 2.4 MG/DL (1.6-2.3)
[2017-12-07 08:46] LABS: INR 1.5 (0.9-1.2); PARTIAL THROMBOPLASTIN TIME 30.6 Seconds (25.6-37.1); PROTHROMBIN TIME 16.2 Seconds (9.8-13.1)
[2017-12-07] MEDS: Valproate 500 MG in Sodium Chloride 0.9% 100 ML IVPB SCH (09:00)
[2017-12-07] MEDS: Pantoprazole 40 mg EC Tab PO SCH (09:00)
[2017-12-07] MEDS ORDERED: Epoetin Alfa 4000 UNIT/ML Inj SC SCH (09:00)
[2017-12-07] MEDS ORDERED: Phytonadione 10 MG in Sodium Chloride 0.9% 50 ML IV ONE (10:00)
--- NOTE | 2017-12-07 10:29 | CP.CCUPN ---
<Aron Murry - Last Filed: 12/07/17 10:44> CCU Subjective - Physician Review Subjective (Free Text): 12/07/17 11:[address] Colvin during a.m. rounds. Overnight events reviewed. Pt. receiving dialysis. Pt. with no complaints. Pt. denies any numbness, tingling, weakness changes in mental status, fever, chills, nausea, vomiting, or headaches at this time. Critical Care Time Spent (in minutes): 30 CCU Objective - Vital Signs / Intake & Output Vital Signs (Last 4 hours): Vital Signs Temp Pulse Resp BP Pulse Ox 12/07/17 08:00 98.6 F 63 16 155/73 H 100 Intake and Output (Last 8hrs): Intake & Output 12/06/17 12/07/17 12/07/17 22:59 06:59 14:59 Intake Total 132 468 Balance 132 468 Intake: IV 132 308 Intake, Piggyback 100 Oral 60 Other: # Voids Urine, Voided 1 # Bowel Movements 1 - Physical Exam Neck: Positive for: Normal Range of Motion Respiratory/Chest: Positive for: Clear to Auscultation, Good Air Exchange Cardiovascular: Positive for: Regular Rate and Rhythm, Normal S1, S2 Abdomen: Negative for: Tenderness Upper Extremity: Positive for: Other (left arm fistula) Skin: Positive for: Warm, Dry Psychiatric: Positive for: Alert, Oriented x 3 - Medications Active Medications: Active Medications Generic Name Dose Route Start Last Admin Trade Name Freq PRN Reason Stop Dose Admin Calcium Acetate 667 mg 12/06/17 09:00 12/06/17 17:32 Phoslo PO 667 mg TID SAMAN Administration Epoetin Triston 4,000 unit 12/07/17 09:00 Procrit [place] MWF [facility] Desmopressin Acetate 15 mcg/ 53.75 mls @ 107.5 mls/hr 12/07/17 12:00 Sodium Chloride IV 12/07/17 12:29 ONCE ONE Phytonadione 10 mg/ Sodium 51 mls @ 102 mls/hr 12/07/17 10:00 Chloride IV 12/07/17 10:29 ONCE@1000 ONE Valproate Sodium 500 mg/ 105 mls @ 105 mls/hr 12/06/17 21:00 12/06/17 21:39 Sodium Chloride IVPB 105 mls/hr Q12 SAMAN Administration As Directed Pantoprazole Sodium 40 mg 12/06/17 09:00 Protonix Ec Tab PO DAILY SAMAN Propranolol HCl 20 mg 12/06/17 09:00 Inderal PO BID SAAMN Sucralfate 1 gm 12/06/17 09:00 12/06/17 17:31 Carafate Tab PO 1 gm BID SAMAN Administration Valsartan 320 mg 12/06/17 09:00 Diovan PO DAILY SAMAN - Patient Studies Lab Studies: Microbiology Studies 12/06/17 06:41 Blood Culture - Preliminary Blood-Venous NO GROWTH AFTER 24 HOURS 12/06/17 06:30 Blood Culture - Preliminary Blood-Venous NO GROWTH AFTER 24 HOURS Lab Studies 12/07/17 12/07/17 12/07/17 Range/Units 08:04 07:53 04:30 WBC (4.8-10.8) K/uL RBC (4.40-5.90) Mil/uL Hgb (12.0-18.0) g/dL Hct (35.0-51.0) % MCV (80.0-94.0) fl MCH (27.0-31.0) pg MCHC (33.0-37.0) g/dL RDW (11.5-14.5) % Plt Count (130-400) K/uL MPV (7.2-11.7) fl Neut % (Auto) (50.0-75.0) % Lymph % (Auto) (20.0-40.0) % Mitchell % (Auto) (0.0-10.0) % Eos % (Auto) (0.0-4.0) % Baso % (Auto) (0.0-2.0) % Neut # (1.8-7.0) K/uL Lymph # (1.0-4.3) K/uL Mitchell # (0.0-0.8) K/uL Eos # (0.0-0.7) K/uL Baso # (0.0-0.2) K/uL PT 16.2 H (9.8-13.1) Seconds INR 1.5 H (0.9-1.2) APTT 30.6 (25.6-37.1) Seconds Sodium 136 (132-148) mmol/l Potassium 5.2 H (3.6-5.0) MMOL/L Chloride 97 L (98-107) mmol/L Carbon Dioxide 24 (22-30) mmol/L Anion Gap 20 (10-20) BUN 58 H (9-20) mg/dl Creatinine 10.4 H* D (0.8-1.5) mg/dl Est GFR ( Amer) 6 Est GFR (Non-Af Amer) 5 POC Glucose (mg/dL) 80 (65-110) mg/dL Random Glucose 79 (75-110) mg/dL Hemoglobin A1c (4.2-6.5) % Calcium 8.3 L (8.4-10.2) mg/dL Phosphorus 5.3 H (2.5-4.5) mg/dl Magnesium 2.4 H (1.6-2.3) MG/DL Phenytoin (10-20) ug/ML 12/07/17 12/06/17 12/06/17 Range/Units 04:30 16:27 11:36 WBC 5.1 (4.8-10.8) K/uL RBC 2.73 L (4.40-5.90) Mil/uL Hgb 8.3 L (12.0-18.0) g/dL Hct 25.3 L (35.0-51.0) % MCV 92.6 (80.0-94.0) fl MCH 30.4 (27.0-31.0) pg MCHC 32.8 L (33.0-37.0) g/dL RDW 18.8 H (11.5-14.5) % Plt Count 80 L (130-400) K/uL MPV 8.0 (7.2-11.7) fl Neut % (Auto) 73.2 (50.0-75.0) % Lymph % (Auto) 16.6 L (20.0-40.0) % Mitchell % (Auto) 8.3 (0.0-10.0) % Eos % (Auto) 1.1 (0.0-4.0) % Baso % (Auto) 0.8 (0.0-2.0) % Neut # 3.7 (1.8-7.0) K/uL Lymph # 0.8 L (1.0-4.3) K/uL Mitchell # 0.4 (0.0-0.8) K/uL Eos # 0.1 (0.0-0.7) K/uL Baso # 0.0 (0.0-0.2) K/uL PT (9.8-13.1) Seconds INR (0.9-1.2) APTT (25.6-37.1) Seconds Sodium (132-148) mmol/l Potassium (3.6-5.0) MMOL/L Chloride (98-107) mmol/L Carbon Dioxide (22-30) mmol/L Anion Gap (10-20) BUN (9-20) mg/dl Creatinine (0.8-1.5) mg/dl Est GFR ( Amer) Est GFR (Non-Af Amer) POC Glucose (mg/dL) (65-110) mg/dL Random Glucose (75-110) mg/dL Hemoglobin A1c (4.2-6.5) % Calcium (8.4-10.2) mg/dL Phosphorus 4.4 (2.5-4.5) mg/dl Magnesium (1.6-2.3) MG/DL Phenytoin 13.1 (10-20) ug/ML 12/06/17 Range/Units 01:56 WBC (4.8-10.8) K/uL RBC (4.40-5.90) Mil/uL Hgb (12.0-18.0) g/dL Hct (35.0-51.0) % MCV (80.0-94.0) fl MCH (27.0-31.0) pg MCHC (33.0-37.0) g/dL RDW (11.5-14.5) % Plt Count (130-400) K/uL MPV (7.2-11.7) fl Neut % (Auto) (50.0-75.0) % Lymph % (Auto) (20.0-40.0) % Mitchell % (Auto) (0.0-10.0) % Eos % (Auto) (0.0-4.0) % Baso % (Auto) (0.0-2.0) % Neut # (1.8-7.0) K/uL Lymph # (1.0-4.3) K/uL Mitchell # (0.0-0.8) K/uL Eos # (0.0-0.7) K/uL Baso # (0.0-0.2) K/uL PT (9.8-13.1) Seconds INR (0.9-1.2) APTT (25.6-37.1) Seconds Sodium (132-148) mmol/l Potassium (3.6-5.0) MMOL/L Chloride (98-107) mmol/L Carbon Dioxide (22-30) mmol/L Anion Gap (10-20) BUN (9-20) mg/dl Creatinine (0.8-1.5) mg/dl Est GFR ( Amer) Est GFR (Non-Af Amer) POC Glucose (mg/dL) (65-110) mg/dL Random Glucose (75-110) mg/dL Hemoglobin A1c 4.6 (4.2-6.5) % Calcium (8.4-10.2) mg/dL Phosphorus (2.5-4.5) mg/dl Magnesium (1.6-2.3) MG/DL Phenytoin (10-20) ug/ML Laboratory Results - last 24 hr 12/06/17 12/06/17 12/06/17 01:56 11:36 16:27 WBC RBC Hgb Hct MCV MCH MCHC RDW Plt Count MPV Neut % (Auto) Lymph % (Auto) Mitchell % (Auto) Eos % (Auto) Baso % (Auto) Neut # Lymph # Mitchell # Eos # Baso # PT INR APTT Sodium Potassium Chloride Carbon Dioxide Anion Gap BUN Creatinine Est GFR ( Amer) Est GFR (Non-Af Amer) POC Glucose (mg/dL) Random Glucose Hemoglobin A1c 4.6 Calcium Phosphorus 4.4 Magnesium Phenytoin 13.1 12/07/17 12/07/17 12/07/17 04:30 04:30 07:53 WBC 5.1 RBC 2.73 L Hgb 8.3 L Hct 25.3 L MCV 92.6 MCH 30.4 MCHC 32.8 L RDW 18.8 H Plt Count 80 L MPV 8.0 Neut % (Auto) 73.2 Lymph % (Auto) 16.6 L Mitchell % (Auto) 8.3 Eos % (Auto) 1.1 Baso % (Auto) 0.8 Neut # 3.7 Lymph # 0.8 L Mitchell # 0.4 Eos # 0.1 Baso # 0.0 PT INR APTT Sodium 136 Potassium 5.2 H Chloride 97 L Carbon Dioxide 24 Anion Gap 20 BUN 58 H Creatinine 10.4 H* D Est GFR ( Amer) 6 Est GFR (Non-Af Amer) 5 POC Glucose (mg/dL) 80 Random Glucose 79 Hemoglobin A1c Calcium 8.3 L Phosphorus 5.3 H Magnesium 2.4 H Phenytoin 12/07/17 08:04 WBC RBC Hgb Hct MCV MCH MCHC RDW Plt Count MPV Neut % (Auto) Lymph % (Auto) Mitchell % (Auto) Eos % (Auto) Baso % (Auto) Neut # Lymph # Mitchell # Eos # Baso # PT 16.2 H INR 1.5 H APTT 30.6 Sodium Potassium Chloride Carbon Dioxide Anion Gap BUN Creatinine Est GFR ( Amer) Est GFR (Non-Af Amer) POC Glucose (mg/dL) Random Glucose Hemoglobin A1c Calcium Phosphorus Magnesium Phenytoin Fingerstick Blood Sugar Results: 106 Review of Systems - Constitutional Constitutional: absent: Fever, Chills - EENT Eyes: absent: Blurred Vision, Photophobia Nose/Mouth/Throat: absent: Nasal Obstruction, Sinus Pain - Cardiovascular Cardiovascular: absent: Chest Pain, Dyspnea on Exertion - Respiratory Respiratory: absent: Cough, Wheezing - Gastrointestinal Gastrointestinal: absent: Abdominal Pain, Nausea, Vomiting - Integumentary Integumentary: absent: Bleeding Lesions, Skin Ulcer - Neurological Neurological: absent: Focal Weakness Critical Care Progress Note - Nutrition Nutrition: Nutrition Category Date Time Status Dysphagia/Modified Consistency Diet [DIET] Diets 12/06/17 Dinner Active Assessment/Plan - Assessment and Plan (Free Text) Plan: 71 y.o. male with renal failure on HD and Liver cirrhosis admitted for subdural hematoma now with coagulaopathy Coagulopathy of unclear etiology most likely due underlying liver cirrhosis and renal failure 1- Transfuse platelets, FFP, and Desmopressin on the day of the surgery 2- SCD only for DVT prophlaxis 3- PT/INR/PTT from 12/07/17 are 16.2/1.5/30.6 4- Dr. Lin Heme/Onc on board input appreciated Subdural Hematoma- chronic but symptomatic 1- Possible O.R. in the a.m. with Neurosurgery Dr. Allred for evacuation of hematoma 2- NPO after midnight 3- Platelet, FFP, and Desmopression in the a.m. given bernardo has a coag profile of 16.2/1.5/30.6 Seizures 1- Keppra 500mg po q12 2- Dr. Mcguire on board recommendations appreciated HTN 1- Losartan 320mg po daily Renal Failure 1- Continue with Dialysis via left arm fistula 2- Nephrology Dr. Caldwell input appreciated GI prophylaxis 1- Protonix 40mg IV DVT prophylaxis 1- SCD Code status 1- Full code <Maninder Colvin M - Last Filed: 12/07/17 12:30> CCU Subjective - Physician Review Critical Care Time Spent (in minutes): 47 CCU Objective - Vital Signs / Intake & Output Vital Signs (Last 4 hours): Vital Signs Pulse Resp BP Pulse Ox 12/07/17 10:00 68 11 L 154/70 H 99 Intake and Output (Last 8hrs): Intake & Output 12/06/17 12/07/17 12/07/17 22:59 06:59 14:59 Intake Total 132 468 Balance 132 468 Intake: IV 132 308 Intake, Piggyback 100 Oral 60 Other: # Voids Urine, Voided 1 # Bowel Movements 1 - Medications Active Medications: Active Medications Generic Name Dose Route Start Last Admin Trade Name Freq PRN Reason Stop Dose Admin Calcium Acetate 667 mg 12/06/17 09:00 12/07/17 09:00 Phoslo PO Not Given TID SAMAN Epoetin Triston 4,000 unit 12/07/17 09:00 Procrit [place] MWF SAMAN Valproate Sodium 500 mg/ 105 mls @ 105 mls/hr 12/06/17 21:00 12/06/17 21:39 Sodium Chloride IVPB 105 mls/hr Q12 SAMAN Administration As Directed Dextrose/Sodium Chloride 1,000 mls @ 44 mls/hr 12/07/17 11:30 12/07/17 12:06 Dextrose 5%/0.9% Ns 1000 Ml IV 12/08/17 11:18 44 mls/hr .[id number] SAMAN Administration Valproate Sodium 1,000 mg/ 110 mls @ 110 mls/hr 12/07/17 12:30 Sodium Chloride IVPB 01/22/18 13:29 ONCE ONE As Directed Pantoprazole Sodium 40 mg 12/06/17 09:00 Protonix Ec Tab PO DAILY [facility] Propranolol HCl 20 mg 12/06/17 09:00 Inderal PO BID [facility] Sucralfate 1 gm 12/06/17 09:00 12/07/17 09:00 Carafate Tab PO Not Given BID [facility] Valsartan 320 mg 12/06/17 09:00 Diovan PO DAILY SAMAN - Patient Studies Lab Studies: Microbiology Studies 12/06/17 06:41 Blood Culture - Preliminary Blood-Venous NO GROWTH AFTER 24 HOURS 12/06/17 06:30 Blood Culture - Preliminary Blood-Venous NO GROWTH AFTER 24 HOURS Lab Studies 12/07/17 12/07/17 12/07/17 Range/Units 08:04 07:53 04:30 WBC (4.8-10.8) K/uL RBC (4.40-5.90) Mil/uL Hgb (12.0-18.0) g/dL Hct (35.0-51.0) % MCV (80.0-94.0) fl MCH (27.0-31.0) pg MCHC (33.0-37.0) g/dL RDW (11.5-14.5) % Plt Count (130-400) K/uL MPV (7.2-11.7) fl Neut % (Auto) (50.0-75.0) % Lymph % (Auto) (20.0-40.0) % Mitchell % (Auto) (0.0-10.0) % Eos % (Auto) (0.0-4.0) % Baso % (Auto) (0.0-2.0) % Neut # (1.8-7.0) K/uL Lymph # (1.0-4.3) K/uL Mitchell # (0.0-0.8) K/uL Eos # (0.0-0.7) K/uL Baso # (0.0-0.2) K/uL PT 16.2 H (9.8-13.1) Seconds INR 1.5 H (0.9-1.2) APTT 30.6 (25.6-37.1) Seconds Sodium 136 (132-148) mmol/l Potassium 5.2 H (3.6-5.0) MMOL/L Chloride 97 L (98-107) mmol/L Carbon Dioxide 24 (22-30) mmol/L Anion Gap 20 (10-20) BUN 58 H (9-20) mg/dl Creatinine 10.4 H* D (0.8-1.5) mg/dl Est GFR ( Amer) 6 Est GFR (Non-Af Amer) 5 POC Glucose (mg/dL) 80 (65-110) mg/dL Random Glucose 79 (75-110) mg/dL Hemoglobin A1c (4.2-6.5) % Calcium 8.3 L (8.4-10.2) mg/dL Phosphorus 5.3 H (2.5-4.5) mg/dl Magnesium 2.4 H (1.6-2.3) MG/DL Phenytoin (10-20) ug/ML 12/07/17 12/06/17 12/06/17 Range/Units 04:30 16:27 11:36 WBC 5.1 (4.8-10.8) K/uL RBC 2.73 L (4.40-5.90) Mil/uL Hgb 8.3 L (12.0-18.0) g/dL Hct 25.3 L (35.0-51.0) % MCV 92.6 (80.0-94.0) fl MCH 30.4 (27.0-31.0) pg MCHC 32.8 L (33.0-37.0) g/dL RDW 18.8 H (11.5-14.5) % Plt Count 80 L (130-400) K/uL MPV 8.0 (7.2-11.7) fl Neut % (Auto) 73.2 (50.0-75.0) % Lymph % (Auto) 16.6 L (20.0-40.0) % Mitchell % (Auto) 8.3 (0.0-10.0) % Eos % (Auto) 1.1 (0.0-4.0) % Baso % (Auto) 0.8 (0.0-2.0) % Neut # 3.7 (1.8-7.0) K/uL Lymph # 0.8 L (1.0-4.3) K/uL Mitchell # 0.4 (0.0-0.8) K/uL Eos # 0.1 (0.0-0.7) K/uL Baso # 0.0 (0.0-0.2) K/uL PT (9.8-13.1) Seconds INR (0.9-1.2) APTT (25.6-37.1) Seconds Sodium (132-148) mmol/l Potassium (3.6-5.0) MMOL/L Chloride (98-107) mmol/L Carbon Dioxide (22-30) mmol/L Anion Gap (10-20) BUN (9-20) mg/dl Creatinine (0.8-1.5) mg/dl Est GFR ( Amer) Est GFR (Non-Af Amer) POC Glucose (mg/dL) (65-110) mg/dL Random Glucose (75-110) mg/dL Hemoglobin A1c (4.2-6.5) % Calcium (8.4-10.2) mg/dL Phosphorus 4.4 (2.5-4.5) mg/dl Magnesium (1.6-2.3) MG/DL Phenytoin 13.1 (10-20) ug/ML 12/06/17 Range/Units 01:56 WBC (4.8-10.8) K/uL RBC (4.40-5.90) Mil/uL Hgb (12.0-18.0) g/dL Hct (35.0-51.0) % MCV (80.0-94.0) fl MCH (27.0-31.0) pg MCHC (33.0-37.0) g/dL RDW (11.5-14.5) % Plt Count (130-400) K/uL MPV (7.2-11.7) fl Neut % (Auto) (50.0-75.0) % Lymph % (Auto) (20.0-40.0) % Mitchell % (Auto) (0.0-10.0) % Eos % (Auto) (0.0-4.0) % Baso % (Auto) (0.0-2.0) % Neut # (1.8-7.0) K/uL Lymph # (1.0-4.3) K/uL Mitchell # (0.0-0.8) K/uL Eos # (0.0-0.7) K/uL Baso # (0.0-0.2) K/uL PT (9.8-13.1) Seconds INR (0.9-1.2) APTT (25.6-37.1) Seconds Sodium (132-148) mmol/l Potassium (3.6-5.0) MMOL/L Chloride (98-107) mmol/L Carbon Dioxide (22-30) mmol/L Anion Gap (10-20) BUN (9-20) mg/dl Creatinine (0.8-1.5) mg/dl Est GFR ( Amer) Est GFR (Non-Af Amer) POC Glucose (mg/dL) (65-110) mg/dL Random Glucose (75-110) mg/dL Hemoglobin A1c 4.6 (4.2-6.5) % Calcium (8.4-10.2) mg/dL Phosphorus (2.5-4.5) mg/dl Magnesium (1.6-2.3) MG/DL Phenytoin (10-20) ug/ML Laboratory Results - last 24 hr 12/06/17 12/06/17 12/06/17 01:56 11:36 16:27 WBC RBC Hgb Hct MCV MCH MCHC RDW Plt Count MPV Neut % (Auto) Lymph % (Auto) Mitchell % (Auto) Eos % (Auto) Baso % (Auto) Neut # Lymph # Mitchell # Eos # Baso # PT INR APTT Sodium Potassium Chloride Carbon Dioxide Anion Gap BUN Creatinine Est GFR ( Amer) Est GFR (Non-Af Amer) POC Glucose (mg/dL) Random Glucose Hemoglobin A1c 4.6 Calcium Phosphorus 4.4 Magnesium Phenytoin 13.1 12/07/17 12/07/17 12/07/17 04:30 04:30 07:53 WBC 5.1 RBC 2.73 L Hgb 8.3 L Hct 25.3 L MCV 92.6 MCH 30.4 MCHC 32.8 L RDW 18.8 H Plt Count 80 L MPV 8.0 Neut % (Auto) 73.2 Lymph % (Auto) 16.6 L Mitchell % (Auto) 8.3 Eos % (Auto) 1.1 Baso % (Auto) 0.8 Neut # 3.7 Lymph # 0.8 L Mitchell # 0.4 Eos # 0.1 Baso # 0.0 PT INR APTT Sodium 136 Potassium 5.2 H Chloride 97 L Carbon Dioxide 24 Anion Gap 20 BUN 58 H Creatinine 10.4 H* D Est GFR ( Amer) 6 Est GFR (Non-Af Amer) 5 POC Glucose (mg/dL) 80 Random Glucose 79 Hemoglobin A1c Calcium 8.3 L Phosphorus 5.3 H Magnesium 2.4 H Phenytoin 12/07/17 08:04 WBC RBC Hgb Hct MCV MCH MCHC RDW Plt Count MPV Neut % (Auto) Lymph % (Auto) Mitchell % (Auto) Eos % (Auto) Baso % (Auto) Neut # Lymph # Mitchell # Eos # Baso # PT 16.2 H INR 1.5 H APTT 30.6 Sodium Potassium Chloride Carbon Dioxide Anion Gap BUN Creatinine Est GFR ( Amer) Est GFR (Non-Af Amer) POC Glucose (mg/dL) Random Glucose Hemoglobin A1c Calcium Phosphorus Magnesium Phenytoin Critical Care Progress Note - Nutrition Nutrition: Nutrition Category Date Time Status Dysphagia/Modified Consistency Diet [DIET] Diets 12/06/17 Dinner Active NPO Diet [DIET] Diets 12/07/17 Dinner Active Attending/Attestation - Attestation I have personally seen and examined this patient.: Yes I have fully participated in the care of the patient.: Yes I have reviewed all pertinent clinical information: Yes Notes (Text): 12/07/17 12:29 Today: Thursday, December 07, 2017 The patient was Seen/interviewed and examined by me at the bedside during ICU round, Medical records reviewed and Management issues were discussed and formulated with the house staff. Events reviewed I have reviewed all the relevant clinical, laboratory, hemodynamic, radiographic data and medications Pain issues, skin care, head of the bed elevation, glycemic control were addressed. I concur with resident's assessment and plan of care as transcribed in Dr. Murry note. 71 Years old Male with PMHx of ESRD on HD MWF , liver cirrhosis with Upper GI bleed twice, [place] [facility] [place] with Dx of upper GI bleed from esophageal Varices. EGD and Transfusion of 2 PRBC was done prior to DC. Who presented with complaint of left sided headache and 3 days of numbness to the right lower, upper extremities with chills and fever on some days. As per family also a brief episode of right upper extremity weakness that has resolved and slurred speech which leave only difficulty to find words? In The ED his NIHSS score was 0 Patient admitted to the ICU with Dx Left sided subdural hematoma, Neurosurgery consulted Pt started on Valproate for Seizures and PRN Ativan On frequent neuro check Only complain of mild headache Scheduled for Drainage tomorrow HD today Will receive 2FFP, 1Plat and DDVP DVT PPX with SCDs, No AC GI PPX: Famotidine 20mg Q12H Full code Total critical care time 47 minutes
--- NOTE | 2017-12-07 10:43 | CP.PCM.PN ---
Subjective - Date & Time of Evaluation Date of Evaluation: 12/07/17 Time of Evaluation: 10:42 - Subjective Subjective: Mr. Manzanares was seen and examined at the bedside. He is alert, oriented to place. According to the , he had episode of forgetfulness early this morning. He states of mild headache on his left side, but claims that is tolerable, non-radiating to any body part. He is currently connected to a dialysis machine, but able to participate during assessment. He denies any blurred vision, dizziness, lightheadedness, nausea, or vomiting. He is able to follow simple commands. He is schedule to evacuation of hematoma brett. There was no untoward events overnight. Objective - Vital Signs/Intake and Output Vital Signs (last 24 hours): Temp Pulse Resp BP Pulse Ox 98.6 F 63 16 155/73 H 100 12/07/17 08:00 12/07/17 08:00 12/07/17 08:00 12/07/17 08:00 12/07/17 08:00 Intake and Output: 12/07/17 12/07/17 06:59 18:59 Intake Total 600 Balance 600 - Medications Medications: Current Medications Calcium Acetate (Phoslo) 667 mg PO TID [facility] Last Admin: 12/06/17 17:32 Dose: 667 mg Epoetin Triston (Procrit) 4,000 unit SC MWF [facility] Desmopressin Acetate 15 mcg/ (Sodium Chloride) 53.75 mls @ 107.5 mls/hr IV ONCE ONE Stop: 12/07/17 12:29 Valproate Sodium 500 mg/ (Sodium Chloride) 105 mls @ 105 mls/hr IVPB Q12 SAMAN PRN Reason: As Directed Last Admin: 12/06/17 21:39 Dose: 105 mls/hr Pantoprazole Sodium (Protonix Ec Tab) 40 mg PO DAILY [facility] Propranolol HCl (Inderal) 20 mg PO BID [facility] Sucralfate (Carafate Tab) 1 gm PO BID [facility] Last Admin: 12/06/17 17:31 Dose: 1 gm Valsartan (Diovan) 320 mg PO DAILY [facility] - Labs Labs: 12/07/17 04:30 12/07/17 04:30 PT 16.2 Seconds (9.8-13.1) H 12/07/17 08:04 INR 1.5 (0.9-1.2) H 12/07/17 08:04 APTT 30.6 Seconds (25.6-37.1) 12/07/17 08:04 - Constitutional Appears: No Acute Distress - Head Exam Head Exam: NORMAL INSPECTION - Neurological Exam Neurological Exam: Alert, Awake Neuro motor strength exam: Left Upper Extremity: 5, Right Upper Extremity: 5, Left Lower Extremity: 5, Right Lower Extremity: 5 Additional comments: He is able to answer questions appropriately and follow simple commands. Assessment and Plan - Assessment and Plan (Free Text) Assessment: Seizure Case discussed with Dr. Lau, continue all current medical therapy. Pending EEG and will monitor valproic level. Plan: Chronic subdural hematoma: Case discussed with Dr. Lau, patient is being seen by a neurosurgeon and is schedule for possible evacuation brett.
[2017-12-07] MEDS ORDERED: Dextrose 5%/0.9% NS 1,000 ML IV SCH (11:30)
[2017-12-07] MEDS ORDERED: Phytonadione 10 mg/ml Inj (Adult) IV ONE (11:30)
[2017-12-07] MEDS ORDERED: Desmopressin 4 mcg/ml Inj (1 ml) IVP ONE (12:00)
[2017-12-07] MEDS ORDERED: Desmopressin 15 MCG in Sodium Chloride 0.9% 50 ML IV ONE (12:00)
[2017-12-07] MEDS: Sodium Chloride 0.9% 1,000 ML IV SCH (12:10)
[2017-12-07] MEDS ORDERED: Valproate 1,000 MG in Sodium Chloride 0.9% 100 ML IVPB ONE (12:30)
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
--- NOTE | 2017-12-07 15:16 | CP.PCM.PN ---
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 I had discussion earlier with Dr Lin who agrees control of blood clotting will be difficult post op I explained in detail the risk of the surgery, as well as the risk of not operating Thier questions were all answered to their satisfaction They understood he is very high risk with surgery, and given his current mental status, may have a higher surgical risk that non-operative risk They will think about what I told them and make a decision tonight If we proceed Dr Lin will arrange FFp and Platelets for tomorrow and the immediate post op period. Objective - Vital Signs/Intake and Output Vital Signs (last 24 hours): Temp Pulse Resp BP Pulse Ox 98.0 F 69 14 151/72 H 100 12/07/17 12:00 12/07/17 14:00 12/07/17 14:00 12/07/17 14:00 12/07/17 14:00 Intake and Output: 12/07/17 12/07/17 06:59 18:59 Intake Total 600 Balance 600 - Medications Medications: Current Medications Calcium Acetate (Phoslo) 667 mg PO TID [facility] Last Admin: 12/07/17 13:12 Dose: 667 mg Epoetin Triston (Procrit) 4,000 unit SC MWF [facility] Last Admin: 12/07/17 12:56 Dose: 4,000 unit Dextrose/Sodium Chloride (Dextrose 5%/0.9% Ns 1000 Ml) 1,000 mls @ 44 mls/hr IV .[id number] [facility] Stop: 12/08/17 11:18 Last Admin: 12/07/17 12:06 Dose: 44 mls/hr Valproate Sodium 750 mg/ (Sodium Chloride) 107.5 mls @ 0 mls/hr IVPB Q12 [facility] PRN Reason: As Directed Pantoprazole Sodium (Protonix Ec Tab) 40 mg PO DAILY [facility] Last Admin: 12/07/17 09:00 Dose: Not Given Propranolol HCl (Inderal) 20 mg PO BID [facility] Sucralfate (Carafate Tab) 1 gm PO BID [facility] Last Admin: 12/07/17 09:00 Dose: Not Given Valsartan (Diovan) 320 mg PO DAILY [facility] Last Admin: 12/07/17 13:12 Dose: 320 mg - Labs Labs: 12/07/17 04:30 12/07/17 04:30 PT 16.2 Seconds (9.8-13.1) H 12/07/17 08:04 INR 1.5 (0.9-1.2) H 12/07/17 08:04 APTT 30.6 Seconds (25.6-37.1) 12/07/17 08:04
--- NOTE | 2017-12-07 17:44 | CT ---
PROCEDURE: CT HEAD WITHOUT CONTRAST. HISTORY: subdural hematoma COMPARISON: December 06, 2017. CT head TECHNIQUE: Axial computed tomography images were obtained through the head/brain without intravenous contrast. Coronal and sagittal reconstructed images. Radiation dose: Total exam DLP = 858.81 mGy-cm. This CT exam was performed using one or more of the following dose reduction techniques: Automated exposure control, adjustment of the mA and/or kV according to patient size, and/or use of iterative reconstruction technique. FINDINGS: HEMORRHAGE: No intracranial hemorrhage. BRAIN: Stable extra-axial fluid collection left parietal frontal region. The degree of sulcal effacement is unchanged. There is no new, superimposed acute hemorrhagic component. VENTRICLES: No significant interval change compared to the prior examination(s). CALVARIUM: Unremarkable. PARANASAL SINUSES: Unremarkable as visualized. No significant inflammatory changes. MASTOID AIR CELLS: Unremarkable as visualized. No inflammatory changes. OTHER FINDINGS: None. IMPRESSION: Stable extra-axial fluid collection on the left. No new, acute/superimposed abnormalities.
[2017-12-07] MEDS ORDERED: SODIUM CHLORIDE 0.9% IV ONE (18:45)
[2017-12-07] MEDS ORDERED: DESMOPRESSIN IV ONE (18:45)
--- NOTE | 2017-12-07 19:05 | CP.PCM.PN ---
Subjective - Date & Time of Evaluation Date of Evaluation: 12/07/17 Time of Evaluation: 19:03 - Subjective Subjective: Follow up Nephrology Consultation Note Assessment: Stable SDH Hypertensive Chronic Kidney Disease (I12.0) End stage renal disease (N18.6) dependence on hemodialysis (Z99.2) (MWF) via AVF Anemia (D64.9), Hyperphosphatemia (E83.39), Secondary Hyperparathyroidism (E21.1 ), HTN (I12.0) thrombocytopenia Plan: Will plan for HD today as ordered.Continue with Nephrovite 1 tab/day. PRBC as needed for anemia. On MABLE as epogen with HD, last Hb 8.3 Continue with phos binders, last phos level 5.3 BP control with meds as ordered. Patient on RAAS corbin as diovan Glycemic control, Dialysis consistent diet Further work up/management as per primary team Dose meds/antibiotics (if needed) for ESRD status. Avoid fleets enema/magnesium based laxatives. Thanks for allowing me to participate in care of your patient. Will follow patient with you. Please call if any Qs Dr Hernesto Bain Office: [phone] Subjective: Noted events overnight. Patients feels okay. Denies chest pain, palpitation, shortness of breath, leg swelling. All other negative Physical Examination: General Appearance: Comfortable, in no acute respiratory distress, co-operative . Vitals reviewed and noted as below Head; Atraumatic, normocephalic ENT: no ulcers no thrush. Tongue is midline. Oropharynx: no rash or ulcers. EYES: Pupils are equal, round and reactive to light accommodation. Eye muscles and extraocular movement intact. Sclera is anicteric. Neck; supple no lymphadenopathy, no thyromegaly or bruit Lungs: Normal respiratory rate/effort. Breath sounds bilateral equal and clear Heart: Normal rate. s1s2 normal. No rub or gallop. Extremities: no edema. No varicose veins Neurological: Patient is alert, awake and oriented to person, place and time. No focal deficit. Strength bilateral appropriate and equal Skin: Warm and dry. Normal turgor. No rash. Palpitation: Normal elasticity for age Abdomen: Abdomen is soft. Bowel sounds +. There is no abdominal tenderness, no guarding/rigidity or organomegaly Psych: limited insight and normal affect/mood MSK: no joint tenderness or swelling. Digits and nails normal, no deformity : kidney or bladder not palpable Access: AVF Labs/imaging reviewed. Past medical history, past surgical history, family history, social history, allergy reviewed and noted as below Family Hx: no hx of CKD. Non contributory Objective - Vital Signs/Intake and Output Vital Signs (last 24 hours): Temp Pulse Resp BP Pulse Ox 97.9 F 60 18 146/60 100 12/07/17 16:00 12/07/17 18:00 12/07/17 18:00 12/07/17 18:00 12/07/17 18:00 Intake and Output: 12/07/17 12/08/17 18:59 06:59 Intake Total 560 Balance 560 - Medications Medications: Current Medications Amlodipine Besylate (Norvasc) 2.5 mg PO DAILY [facility] Calcium Acetate (Phoslo) 667 mg PO TID [facility] Last Admin: 12/07/17 17:25 Dose: 667 mg Epoetin Triston (Procrit) 4,000 unit SC MWF [facility] Last Admin: 12/07/17 12:56 Dose: 4,000 unit Dextrose/Sodium Chloride (Dextrose 5%/0.9% Ns 1000 Ml) 1,000 mls @ 44 mls/hr IV .[id number] [facility] Stop: 12/08/17 11:18 Last Admin: 12/07/17 12:06 Dose: 44 mls/hr Valproate Sodium 750 mg/ (Sodium Chloride) 107.5 mls @ 0 mls/hr IVPB Q12 [facility] PRN Reason: As Directed Phytonadione 10 mg/ Sodium (Chloride) 101 mls @ 101 mls/hr IV ONCE ONE Stop: 12/07/17 19:44 Desmopressin Acetate 15 mcg/ (Sodium Chloride) 103.75 mls @ 103.75 mls/hr IV ONCE ONE Stop: 12/07/17 19:44 Pantoprazole Sodium (Protonix Ec Tab) 40 mg PO DAILY [facility] Last Admin: 12/07/17 09:00 Dose: Not Given Propranolol HCl (Inderal) 10 mg PO TID [facility] Sucralfate (Carafate Tab) 1 gm PO BID [facility] Last Admin: 12/07/17 17:25 Dose: 1 gm Valsartan (Diovan) 320 mg PO DAILY [facility] Last Admin: 12/07/17 13:12 Dose: 320 mg - Labs Labs: 12/07/17 04:30 12/07/17 04:30 PT 16.2 Seconds (9.8-13.1) H 12/07/17 08:04 INR 1.5 (0.9-1.2) H 12/07/17 08:04 APTT 30.6 Seconds (25.6-37.1) 12/07/17 08:04
[2017-12-07] MEDS: Valproate 750 MG in Sodium Chloride 0.9% 100 ML IVPB SCH (22:26)
--- NOTE | 2017-12-07 22:57 | CP.PCM.PN ---
Subjective - Date & Time of Evaluation Date of Evaluation: 12/07/17 Time of Evaluation: 19:05 - Subjective Subjective: Appears comfortable The patient is high risk for bleeding complications related to neurosurgery given his thrombocytopenia, platelet dysfunction, and coagulopathy. Platelets, plasma, and desmopressin will be given before surgery in an attempt to mitigate such a complication. Should the patient undergo neurosurgery, I would recommend attempting to maintain the platelet count at minimum 100,000 and INR < 1.5 post op, and in particular, until his drains are removed. Should the patient develop any further ENGINE CLEANER bleeding, I would recommend continued plasma, platelet, desmopressin and the addition of prothrombin complex (Kcentra). Renal replacement therapy should be performed to minimize the patients uremia. Discussed with Dr. Allred. Objective - Vital Signs/Intake and Output Vital Signs (last 24 hours): Temp Pulse Resp BP Pulse Ox 97.9 F 68 18 150/67 100 12/07/17 16:00 12/07/17 20:20 12/07/17 18:00 12/07/17 20:20 12/07/17 18:00 Intake and Output: 12/07/17 12/08/17 18:59 06:59 Intake Total 560 Balance 560 - Medications Medications: Current Medications Amlodipine Besylate (Norvasc) 2.5 mg PO DAILY [facility] Last Admin: 12/07/17 20:20 Dose: 2.5 mg Calcium Acetate (Phoslo) 667 mg PO TID [facility] Last Admin: 12/07/17 17:25 Dose: 667 mg Epoetin Triston (Procrit) 4,000 unit SC MWF [facility] Last Admin: 12/07/17 12:56 Dose: 4,000 unit Dextrose/Sodium Chloride (Dextrose 5%/0.9% Ns 1000 Ml) 1,000 mls @ 44 mls/hr IV .[id number] [facility] Stop: 12/08/17 11:18 Last Admin: 12/07/17 12:06 Dose: 44 mls/hr Valproate Sodium 750 mg/ (Sodium Chloride) 107.5 mls @ 0 mls/hr IVPB Q12 [facility] PRN Reason: As Directed Last Admin: 12/07/17 22:26 Dose: 100 mls/hr Pantoprazole Sodium (Protonix Ec Tab) 40 mg PO DAILY [facility] Last Admin: 12/07/17 09:00 Dose: Not Given Propranolol HCl (Inderal) 10 mg PO TID [facility] Sucralfate (Carafate Tab) 1 gm PO BID [facility] Last Admin: 12/07/17 17:25 Dose: 1 gm Valsartan (Diovan) 320 mg PO DAILY [facility] Last Admin: 12/07/17 13:12 Dose: 320 mg - Labs Labs: 12/07/17 04:30 12/07/17 04:30 PT 16.2 Seconds (9.8-13.1) H 12/07/17 08:04 INR 1.5 (0.9-1.2) H 12/07/17 08:04 APTT 30.6 Seconds (25.6-37.1) 12/07/17 08:04 - Head Exam Head Exam: ATRAUMATIC - Eye Exam Eye Exam: Normal appearance - ENT Exam ENT Exam: Mucous Membranes Dry - Respiratory Exam Respiratory Exam: NORMAL BREATHING PATTERN - Cardiovascular Exam Cardiovascular Exam: +S1, +S2 - GI/Abdominal Exam GI & Abdominal Exam: Normal Bowel Sounds Assessment and Plan (1) Coagulopathy Assessment & Plan: secondary to liver disease for 2u FFP prior to OR goal INR < 1.5 Status: Acute (2) Thrombocytopenia Assessment & Plan: multifactorial liver cirrhosis and splenic sequestration platelet dysfunction from uremia to receive 1 bag platelets prior to OR DDAVP to be given prior to OR goal platelet count minimum 100,000 Status: Acute (3) Anemia Assessment & Plan: renal disease likely occult GI blood loss Status: Acute
[2017-12-08 05:58] LABS: BASO % 0.5 % (0.0-2.0); EOS % 0.8 % (0.0-4.0); HEMOGLOBIN 8.3 g/dL (12.0-18.0); LYMPH # 0.7 K/uL (1.0-4.3); LYMPH % 11.8 % (20.0-40.0); MEAN CELL VOLUME 91.9 fl (80.0-94.0); MEAN CORPUSCULAR HEMOGLOBIN 30.6 pg (27.0-31.0); MEAN CORPUSCULAR HGB CONC 33.3 g/dL (33.0-37.0); MONO # 0.5 K/uL (0.0-0.8); MONO % 9.5 % (0.0-10.0); NEUT # 4.5 K/uL (1.8-7.0); NEUT % 77.4 % (50.0-75.0); NRBC % 0.1 % (0.0-0.0); RBC 2.72 Mil/uL (4.40-5.90); RED CELL DISTRIBUTION WIDTH 18.3 % (11.5-14.5); WHITE BLOOD COUNT 5.8 K/uL (4.8-10.8)
[2017-12-08 06:20] LABS: CALCIUM 7.9 mg/dL (8.4-10.2)
[2017-12-08 06:43] LABS: INR 1.5 (0.9-1.2); PARTIAL THROMBOPLASTIN TIME 27.6 Seconds (25.6-37.1); PROTHROMBIN TIME 16.2 Seconds (9.8-13.1)
[2017-12-08] MEDS ORDERED: Phytonadione 10 mg/ml Inj (Adult) IV ONE (07:00)
[2017-12-08] MEDS ORDERED: Phytonadione 10 mg/ml Inj (Adult) IVPB STA (07:02)
[2017-12-08] MEDS ORDERED: Phytonadione 10 MG in Sodium Chloride 0.9% 50 ML IV ONE (07:15)
[2017-12-08] MEDS: Valproate 750 MG in Sodium Chloride 0.9% 100 ML IVPB SCH ×2 (07:37→09:35)
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
[2017-12-08] MEDS ORDERED: Nicardipine 20 MG/200 ML 20 MG/200 ML BAG IV ONE ×3 (08:08→22:45)
[2017-12-08 08:30] LABS: HEMOGLOBIN 8.7 g/dL (12.0-18.0); MEAN CELL VOLUME 92.4 fl (80.0-94.0); MEAN CORPUSCULAR HEMOGLOBIN 30.1 pg (27.0-31.0); MEAN CORPUSCULAR HGB CONC 32.6 g/dL (33.0-37.0); RBC 2.89 Mil/uL (4.40-5.90); RED CELL DISTRIBUTION WIDTH 18.4 % (11.5-14.5); WHITE BLOOD COUNT 5.4 K/uL (4.8-10.8)
[2017-12-08] MEDS ORDERED: Desmopressin 4 mcg/ml Inj (10 ml) IV ONE (09:00)
--- NOTE | 2017-12-08 09:00 | CP.PCM.PN ---
Subjective - Date & Time of Evaluation Date of Evaluation: 12/08/17 Time of Evaluation: 08:30 - Subjective Subjective: Assessment: Stable SDH Hypertensive Chronic Kidney Disease (I12.0) End stage renal disease (N18.6) dependence on hemodialysis (Z99.2) (MWF) via AVF Anemia (D64.9), Hyperphosphatemia (E83.39), Secondary Hyperparathyroidism (E21.1 ), HTN (I12.0) thrombocytopenia Plan: Will plan for HD tomorrow, MWF.Continue with Nephrovite 1 tab/day. PRBC as needed for anemia. On MABLE Continue with phos binders BP control with meds as ordered transfusions prn primary team Subjective: Events noted, seziure this am Physical Examination: General Appearance: Comfortable, in no acute respiratory distress, co-operative . Vitals reviewed and noted as below Head; Atraumatic, normocephalic ENT: no ulcers no thrush. Tongue is midline. Oropharynx: no rash or ulcers. EYES: non icteric, reactive to light Neck; supple no lymphadenopathy, no thyromegaly or bruit Lungs: Normal respiratory rate/effort. Breath sounds bilateral equal and clear Heart: Normal rate. s1s2 normal. No rub or gallop. Extremities: no edema. No varicose veins Neurological: Patient is drowsy and post -ictal Skin: Warm and dry. Normal turgor. No rash. Palpitation: Normal elasticity for age Abdomen: Abdomen is soft. Bowel sounds +. There is no abdominal tenderness, no guarding/rigidity or organomegaly Psych: drowsyMSK: no joint tenderness or swelling. Digits and nails normal, no deformity : kidney or bladder not palpable Access: AVF Objective - Vital Signs/Intake and Output Vital Signs (last 24 hours): Temp Pulse Resp BP Pulse Ox 98.6 F 74 18 167/75 H 100 12/08/17 08:00 12/08/17 08:21 12/08/17 08:00 12/08/17 08:21 12/08/17 08:00 Intake and Output: 12/08/17 12/08/17 06:59 18:59 Intake Total 1503 Balance 1503 - Medications Medications: Current Medications Amlodipine Besylate (Norvasc) 2.5 mg PO DAILY [facility] Last Admin: 12/07/17 20:20 Dose: 2.5 mg Calcium Acetate (Phoslo) 667 mg PO TID [facility] Last Admin: 12/07/17 17:25 Dose: 667 mg Epoetin Triston (Procrit) 4,000 unit SC MWF [facility] Last Admin: 12/07/17 12:56 Dose: 4,000 unit Dextrose/Sodium Chloride (Dextrose 5%/0.9% Ns 1000 Ml) 1,000 mls @ 44 mls/hr IV .[id number] [facility] Stop: 12/08/17 11:18 Last Admin: 12/07/17 12:06 Dose: 44 mls/hr Valproate Sodium 750 mg/ (Sodium Chloride) 107.5 mls @ 0 mls/hr IVPB Q12 [facility] PRN Reason: As Directed Last Admin: 12/08/17 07:37 Dose: 107.5 mls/hr Nicardipine HCl (Cardene Iv Premix) 20 mg in 200 mls @ 50 mls/hr IV .Q4H ONE; 5 MG/HR PRN Reason: Protocol Stop: 12/08/17 12:07 Lorazepam (Ativan) 2 mg IVP Q1 PRN PRN Reason: Seizure activity Pantoprazole Sodium (Protonix Ec Tab) 40 mg PO DAILY [facility] Last Admin: 12/07/17 09:00 Dose: Not Given Propranolol HCl (Inderal) 10 mg PO TID [facility] Sucralfate (Carafate Tab) 1 gm PO BID [facility] Last Admin: 12/07/17 17:25 Dose: 1 gm Valsartan (Diovan) 320 mg PO DAILY [facility] Last Admin: 12/07/17 13:12 Dose: 320 mg - Labs Labs: 12/08/17 08:15 12/08/17 04:25 PT 16.2 Seconds (9.8-13.1) H 12/08/17 04:25 INR 1.5 (0.9-1.2) H 12/08/17 04:25 APTT 27.6 Seconds (25.6-37.1) 12/08/17 04:25
[2017-12-08] MEDS ORDERED: Desmopressin 4 mcg/ml Inj (1 ml) IVP ONE (09:29)
[2017-12-08 09:33] LABS: INR 1.5 (0.9-1.2); PROTHROMBIN TIME 16.4 Seconds (9.8-13.1)
[2017-12-08 09:34] LABS: PARTIAL THROMBOPLASTIN TIME 27.6 Seconds (25.6-37.1)
[2017-12-08] MEDS: Pantoprazole 40 mg EC Tab PO SCH ×2 (09:38→17:10)
[2017-12-08] MEDS ORDERED: Desmopressin 15 MCG in Sodium Chloride 0.9% 50 ML IM ONE (09:45)
[2017-12-08] MEDS ORDERED: Desmopressin 15 MCG in Sodium Chloride 0.9% 50 ML IV ONE (10:00)
--- NOTE | 2017-12-08 11:58 | CP.CCUPN ---
<Nani Gutierrez - Last Filed: 12/08/17 14:13> CCU Subjective - Physician Review Subjective (Free Text): Patient had seizure this AM, given Ativan/depacon. Somnolent. Family is bedside. Patients platelets : 82, INR 1.5. Despite tx with FFP/platelet transfusion/ DDAVP. Case d/w Dr. Allred and Dr. Lin. 1 unit platelets/2 units of FFP to be given prior to patient going to OR. DDAVP as well, hold if hyponatremia. CCU Objective - Vital Signs / Intake & Output Vital Signs (Last 4 hours): Vital Signs Temp Pulse Resp BP Pulse Ox 12/08/17 09:38 75 132/49 L 12/08/17 09:36 69 132/49 L 12/08/17 08:21 74 167/75 H 12/08/17 08:00 98.6 F 69 18 167/75 H 100 Intake and Output (Last 8hrs): Intake & Output 12/07/17 12/08/17 12/08/17 22:59 06:59 14:59 Intake Total 1085 978 Balance 1085 978 Intake: IV 440 88 Intake, Piggyback 200 100 Oral 120 Blood Product 325 790 Other: # Bowel Movements 1 1 - Physical Exam Head: Positive for: Atraumatic, Normocephalic Respiratory/Chest: Positive for: Clear to Auscultation, Good Air Exchange. Negative for: Respiratory Distress, Accessory Muscle Use, Decreased Breath Sounds Cardiovascular: Positive for: Regular Rate and Rhythm, Normal S1, S2. Negative for: Murmurs Abdomen: Negative for: Tenderness, Distention Upper Extremity: Positive for: Other (left arm fistula) Skin: Positive for: Warm, Dry Psychiatric: Positive for: Alert, Oriented x 3 - Medications Active Medications: Active Medications Generic Name Dose Route Start Last Admin Trade Name Freq PRN Reason Stop Dose Admin Amlodipine Besylate 2.5 mg 12/07/17 17:31 12/08/17 09:38 Norvasc PO Not Given DAILY [facility] Calcium Acetate 667 mg 12/06/17 09:00 12/08/17 09:38 Phoslo PO Not Given TID [facility] Epoetin Triston 4,000 unit 12/07/17 09:00 12/07/17 12:56 Procrit SC 4,000 unit MWF [facility] Administration Valproate Sodium 750 mg/ 107.5 mls @ 0 mls/hr 12/07/17 21:00 12/08/17 09:35 Sodium Chloride IVPB Not Given Q12 SAMAN As Directed Nicardipine HCl 20 mg in 200 mls @ 50 mls/hr 12/08/17 08:08 12/08/17 10:19 Cardene Iv Premix IV 12/08/17 12:07 5 mg/hr .Q4H ONE 50 mls/hr Protocol Administration 5 MG/HR Lorazepam 2 mg 12/08/17 07:27 Ativan IVP Q1 PRN Seizure activity Pantoprazole Sodium 40 mg 12/06/17 09:00 12/08/17 09:38 Protonix Ec Tab PO Not Given DAILY [facility] Propranolol HCl 10 mg 12/08/17 09:00 12/08/17 09:36 Inderal PO Not Given TID [facility] Sucralfate 1 gm 12/06/17 09:00 12/08/17 09:35 Carafate Tab PO Not Given BID [facility] Valsartan 320 mg 12/06/17 09:00 12/08/17 09:38 Diovan PO Not Given DAILY [facility] - Patient Studies Lab Studies: Microbiology Studies 12/06/17 06:41 Blood Culture - Preliminary Blood-Venous NO GROWTH AFTER 48 HOURS 12/06/17 06:30 Blood Culture - Preliminary Blood-Venous NO GROWTH AFTER 48 HOURS 12/06/17 17:06 MRSA Culture (Admit) - Final Naris MRSA NOT DETECTED Lab Studies 12/08/17 12/08/17 12/08/17 Range/Units 09:02 08:15 04:25 WBC 5.4 (4.8-10.8) K/uL RBC 2.89 L (4.40-5.90) Mil/uL Hgb 8.7 L (12.0-18.0) g/dL Hct 26.7 L (35.0-51.0) % MCV 92.4 (80.0-94.0) fl MCH 30.1 (27.0-31.0) pg MCHC 32.6 L (33.0-37.0) g/dL RDW 18.4 H (11.5-14.5) % Plt Count 82 L (130-400) K/uL MPV (7.2-11.7) fl Neut % (Auto) (50.0-75.0) % Lymph % (Auto) (20.0-40.0) % [place] % (Auto) (0.0-10.0) % Eos % (Auto) (0.0-4.0) % Baso % (Auto) (0.0-2.0) % Neut # (1.8-7.0) K/uL Lymph # (1.0-4.3) K/uL [place] # (0.0-0.8) K/uL Eos # (0.0-0.7) K/uL Baso # (0.0-0.2) K/uL PT 16.4 H (9.8-13.1) Seconds INR 1.5 H (0.9-1.2) APTT 27.6 (25.6-37.1) Seconds Sodium 137 (132-148) mmol/l Potassium 4.4 (3.6-5.0) MMOL/L Chloride 100 (98-107) mmol/L Carbon Dioxide 27 (22-30) mmol/L Anion Gap 14 (10-20) BUN 34 H (9-20) mg/dl Creatinine 6.2 H (0.8-1.5) mg/dl Est GFR ( Amer) 11 Est GFR (Non-Af Amer) 9 Random Glucose 90 (75-110) mg/dL Calcium 7.9 L (8.4-10.2) mg/dL Valproic Acid (50.0-100.0) ug/mL Blood Type Antibody Screen Crossmatch BBK History Checked 12/08/17 12/08/17 12/08/17 Range/Units 04:25 04:25 04:25 WBC 5.8 (4.8-10.8) K/uL RBC 2.72 L (4.40-5.90) Mil/uL Hgb 8.3 L (12.0-18.0) g/dL Hct 25.0 L (35.0-51.0) % MCV 91.9 (80.0-94.0) fl MCH 30.6 (27.0-31.0) pg MCHC 33.3 (33.0-37.0) g/dL RDW 18.3 H (11.5-14.5) % Plt Count 78 L (130-400) K/uL MPV 8.0 (7.2-11.7) fl Neut % (Auto) 77.4 H (50.0-75.0) % Lymph % (Auto) 11.8 L (20.0-40.0) % [place] % (Auto) 9.5 (0.0-10.0) % Eos % (Auto) 0.8 (0.0-4.0) % Baso % (Auto) 0.5 (0.0-2.0) % Neut # 4.5 (1.8-7.0) K/uL Lymph # 0.7 L (1.0-4.3) K/uL [place] # 0.5 (0.0-0.8) K/uL Eos # 0.0 (0.0-0.7) K/uL Baso # 0.0 (0.0-0.2) K/uL PT 16.2 H (9.8-13.1) Seconds INR 1.5 H (0.9-1.2) APTT 27.6 (25.6-37.1) Seconds Sodium (132-148) mmol/l Potassium (3.6-5.0) MMOL/L Chloride (98-107) mmol/L Carbon Dioxide (22-30) mmol/L Anion Gap (10-20) BUN (9-20) mg/dl Creatinine (0.8-1.5) mg/dl Est GFR ( Amer) Est GFR (Non-Af Amer) Random Glucose (75-110) mg/dL Calcium (8.4-10.2) mg/dL Valproic Acid 59.7 (50.0-100.0) ug/mL Blood Type Antibody Screen Crossmatch BBK History Checked 12/07/17 12/06/17 Range/Units 17:07 01:45 WBC (4.8-10.8) K/uL RBC (4.40-5.90) Mil/uL Hgb (12.0-18.0) g/dL Hct (35.0-51.0) % MCV (80.0-94.0) fl MCH (27.0-31.0) pg MCHC (33.0-37.0) g/dL RDW (11.5-14.5) % Plt Count (130-400) K/uL MPV (7.2-11.7) fl Neut % (Auto) (50.0-75.0) % Lymph % (Auto) (20.0-40.0) % [place] % (Auto) (0.0-10.0) % Eos % (Auto) (0.0-4.0) % Baso % (Auto) (0.0-2.0) % Neut # (1.8-7.0) K/uL Lymph # (1.0-4.3) K/uL [place] # (0.0-0.8) K/uL Eos # (0.0-0.7) K/uL Baso # (0.0-0.2) K/uL PT (9.8-13.1) Seconds INR (0.9-1.2) APTT (25.6-37.1) Seconds Sodium (132-148) mmol/l Potassium (3.6-5.0) MMOL/L Chloride (98-107) mmol/L Carbon Dioxide (22-30) mmol/L Anion Gap (10-20) BUN (9-20) mg/dl Creatinine (0.8-1.5) mg/dl Est GFR ( Amer) Est GFR (Non-Af Amer) Random Glucose (75-110) mg/dL Calcium (8.4-10.2) mg/dL Valproic Acid 63.7 (50.0-100.0) ug/mL Blood Type A POSITIVE Antibody Screen Negative Crossmatch See Detail BBK History Checked No verified bt Laboratory Results - last 24 hr 12/06/17 12/07/17 12/08/17 01:45 17:07 04:25 WBC RBC Hgb Hct MCV MCH MCHC RDW Plt Count MPV Neut % (Auto) Lymph % (Auto) [place] % (Auto) Eos % (Auto) Baso % (Auto) Neut # Lymph # [place] # Eos # Baso # PT INR APTT Sodium Potassium Chloride Carbon Dioxide Anion Gap BUN Creatinine Est GFR ( Amer) Est GFR (Non-Af Amer) Random Glucose Calcium Valproic Acid 63.7 59.7 Blood Type A POSITIVE Antibody Screen Negative Crossmatch See Detail BBK History Checked No verified bt 12/08/17 12/08/17 12/08/17 04:25 04:25 04:25 WBC 5.8 RBC 2.72 L Hgb 8.3 L Hct 25.0 L MCV 91.9 MCH 30.6 MCHC 33.3 RDW 18.3 H Plt Count 78 L MPV 8.0 Neut % (Auto) 77.4 H Lymph % (Auto) 11.8 L [place] % (Auto) 9.5 Eos % (Auto) 0.8 Baso % (Auto) 0.5 Neut # 4.5 Lymph # 0.7 L [place] # 0.5 Eos # 0.0 Baso # 0.0 PT 16.2 H INR 1.5 H APTT 27.6 Sodium 137 Potassium 4.4 Chloride 100 Carbon Dioxide 27 Anion Gap 14 BUN 34 H Creatinine 6.2 H Est GFR ( Amer) 11 Est GFR (Non-Af Amer) 9 Random Glucose 90 Calcium 7.9 L Valproic Acid Blood Type Antibody Screen Crossmatch BBK History Checked 12/08/17 12/08/17 08:15 09:02 WBC 5.4 RBC 2.89 L Hgb 8.7 L Hct 26.7 L MCV 92.4 MCH 30.1 MCHC 32.6 L RDW 18.4 H Plt Count 82 L MPV Neut % (Auto) Lymph % (Auto) [place] % (Auto) Eos % (Auto) Baso % (Auto) Neut # Lymph # [place] # Eos # Baso # PT 16.4 H INR 1.5 H APTT 27.6 Sodium Potassium Chloride Carbon Dioxide Anion Gap BUN Creatinine Est GFR ( Amer) Est GFR (Non-Af Amer) Random Glucose Calcium Valproic Acid Blood Type Antibody Screen Crossmatch BBK History Checked Fingerstick Blood Sugar Results: 106 Critical Care Progress Note - Extremities/Vascular Does the Patient have a Central Venous Catheter?: No Does the Patient need a Central Venous Catheter?: No Does the Patient have a Phipps Catheter?: No Does the Patient need a Phipps Catheter?: No - Prophylaxis GI Prophylaxis GI: PPI - Prophylaxis DVT Prophylaxis DVT: SCDs - Nutrition Nutrition: Nutrition Category Date Time Status NPO Diet [DIET] Diets 12/07/17 Dinner Active Assessment/Plan - Assessment and Plan (Free Text) Assessment: History obtained from patients family, chart review, discussed with Dr. Colvin, Dr. Lin, Dr. Allred. 71 year old male with recent hospitalization due to UGI bleed 2 to esophageal varices, s/p 2 units PRBCs, found to have subdural hematoma, discharged on Pt presented to [facility] with c/o 6 days of left sided headache with associated numbness of right upper/lower extremities, fever/chills. Patient has had 2 Head CTs, last CT on 12/07/17 revealed stable SDH. Patient however has been experiencing seizures likely secondary to this. Dr. Allred to speak with family today regarding plan for surgery. Neuro: Subdural hematoma with midline shift, seizures. Patient somnolent s/p Ativan administration. Has Ativan PRN, on Depacon. for seizures Neurology/Neurosurgery are following. Possible OR in AM. Cardiovascular: HTN: on cardene drip now Respiratory: No distress, if seizures persist may intubate patient to protect airway. Stable for now. GI: Recent UGI bleed due to esophageal varices, Liver Cirrhosis, on Protonix, Sucralfate, and propranolol. Renal/: ESRD on HD, last dialysis session 12/07/17. Nephrology following. Heme: Coagulopathy: thrombocytopenia, elevated INR, Anemia. No improvement of plts/INR despite treatment with FFP and platelet transfusion. If pt to go to OR in AM, will given 2 unit FFP/1 unit platelets just before going to OR. May need transfusion post op Prophylaxis: GI: protonix/DVT: SCDS given coagulopathy and intracranial bleeding <Maninder Colvin - Last Filed: 12/08/17 17:13> CCU Objective - Vital Signs / Intake & Output Vital Signs (Last 4 hours): Vital Signs Temp Pulse Resp BP Pulse Ox 12/08/17 16:00 98.4 F 71 20 132/72 100 12/08/17 14:00 78 15 144/69 100 Intake and Output (Last 8hrs): Intake & Output 12/08/17 12/08/17 12/08/17 06:59 14:59 22:59 Intake Total 978 Balance 978 Intake: IV 88 Intake, Piggyback 100 Blood Product 790 Other: # Bowel Movements 1 - Medications Active Medications: Active Medications Generic Name Dose Route Start Last Admin Trade Name Freq PRN Reason Stop Dose Admin Amlodipine Besylate 2.5 mg 12/09/17 09:00 Norvasc PO DAILY [facility] Calcium Acetate 667 mg 12/08/17 13:00 12/08/17 17:09 Phoslo PO 667 mg TIDWM SAMAN Administration Epoetin Triston 4,000 unit 12/09/17 09:00 Procrit SC MWF [facility] Nicardipine HCl 20 mg in 200 mls @ 50 mls/hr 12/08/17 15:00 12/08/17 15:41 Cardene Iv Premix IV 12/08/17 18:59 5 mg/hr .Q4H ONE 50 mls/hr Protocol Administration 5 MG/HR Levetiracetam 750 mg/ Sodium 107.5 mls @ 215 mls/hr 12/09/17 04:00 Chloride IVPB Q12@0400,1600 SAMAN Lorazepam 2 mg 12/08/17 12:37 Ativan IVP Q1 PRN Seizure activity Pantoprazole Sodium 40 mg 12/09/17 09:00 12/08/17 17:10 Protonix Ec Tab PO 40 mg DAILY [facility] Administration Sucralfate 1 gm 12/08/17 16:30 12/08/17 17:08 Carafate Tab PO 1 gm BIDAC SAMAN Administration Valsartan 320 mg 12/09/17 09:00 Diovan PO DAILY [facility] - Patient Studies Lab Studies: Microbiology Studies 12/06/17 06:41 Blood Culture - Preliminary Blood-Venous NO GROWTH AFTER 48 HOURS 12/06/17 06:30 Blood Culture - Preliminary Blood-Venous NO GROWTH AFTER 48 HOURS 12/06/17 17:06 MRSA Culture (Admit) - Final Naris MRSA NOT DETECTED Lab Studies 12/08/17 12/08/17 12/08/17 Range/Units 09:02 08:15 04:25 WBC 5.4 (4.8-10.8) K/uL RBC 2.89 L (4.40-5.90) Mil/uL Hgb 8.7 L (12.0-18.0) g/dL Hct 26.7 L (35.0-51.0) % MCV 92.4 (80.0-94.0) fl MCH 30.1 (27.0-31.0) pg MCHC 32.6 L (33.0-37.0) g/dL RDW 18.4 H (11.5-14.5) % Plt Count 82 L (130-400) K/uL MPV (7.2-11.7) fl Neut % (Auto) (50.0-75.0) % Lymph % (Auto) (20.0-40.0) % [place] % (Auto) (0.0-10.0) % Eos % (Auto) (0.0-4.0) % Baso % (Auto) (0.0-2.0) % Neut # (1.8-7.0) K/uL Lymph # (1.0-4.3) K/uL [place] # (0.0-0.8) K/uL Eos # (0.0-0.7) K/uL Baso # (0.0-0.2) K/uL PT 16.4 H (9.8-13.1) Seconds INR 1.5 H (0.9-1.2) APTT 27.6 (25.6-37.1) Seconds Sodium 137 (132-148) mmol/l Potassium 4.4 (3.6-5.0) MMOL/L Chloride 100 (98-107) mmol/L Carbon Dioxide 27 (22-30) mmol/L Anion Gap 14 (10-20) BUN 34 H (9-20) mg/dl Creatinine 6.2 H (0.8-1.5) mg/dl Est GFR ( Amer) 11 Est GFR (Non-Af Amer) 9 Random Glucose 90 (75-110) mg/dL Calcium 7.9 L (8.4-10.2) mg/dL Valproic Acid (50.0-100.0) ug/mL Blood Type Antibody Screen Crossmatch BBK History Checked 12/08/17 12/08/17 12/08/17 Range/Units 04:25 04:25 04:25 WBC 5.8 (4.8-10.8) K/uL RBC 2.72 L (4.40-5.90) Mil/uL Hgb 8.3 L (12.0-18.0) g/dL Hct 25.0 L (35.0-51.0) % MCV 91.9 (80.0-94.0) fl MCH 30.6 (27.0-31.0) pg MCHC 33.3 (33.0-37.0) g/dL RDW 18.3 H (11.5-14.5) % Plt Count 78 L (130-400) K/uL MPV 8.0 (7.2-11.7) fl Neut % (Auto) 77.4 H (50.0-75.0) % Lymph % (Auto) 11.8 L (20.0-40.0) % [place] % (Auto) 9.5 (0.0-10.0) % Eos % (Auto) 0.8 (0.0-4.0) % Baso % (Auto) 0.5 (0.0-2.0) % Neut # 4.5 (1.8-7.0) K/uL Lymph # 0.7 L (1.0-4.3) K/uL [place] # 0.5 (0.0-0.8) K/uL Eos # 0.0 (0.0-0.7) K/uL Baso # 0.0 (0.0-0.2) K/uL PT 16.2 H (9.8-13.1) Seconds INR 1.5 H (0.9-1.2) APTT 27.6 (25.6-37.1) Seconds Sodium (132-148) mmol/l Potassium (3.6-5.0) MMOL/L Chloride (98-107) mmol/L Carbon Dioxide (22-30) mmol/L Anion Gap (10-20) BUN (9-20) mg/dl Creatinine (0.8-1.5) mg/dl Est GFR ( Amer) Est GFR (Non-Af Amer) Random Glucose (75-110) mg/dL Calcium (8.4-10.2) mg/dL Valproic Acid 59.7 (50.0-100.0) ug/mL Blood Type Antibody Screen Crossmatch BBK History Checked 12/07/17 12/06/17 Range/Units 17:07 01:45 WBC (4.8-10.8) K/uL RBC (4.40-5.90) Mil/uL Hgb (12.0-18.0) g/dL Hct (35.0-51.0) % MCV (80.0-94.0) fl MCH (27.0-31.0) pg MCHC (33.0-37.0) g/dL RDW (11.5-14.5) % Plt Count (130-400) K/uL MPV (7.2-11.7) fl Neut % (Auto) (50.0-75.0) % Lymph % (Auto) (20.0-40.0) % [place] % (Auto) (0.0-10.0) % Eos % (Auto) (0.0-4.0) % Baso % (Auto) (0.0-2.0) % Neut # (1.8-7.0) K/uL Lymph # (1.0-4.3) K/uL [place] # (0.0-0.8) K/uL Eos # (0.0-0.7) K/uL Baso # (0.0-0.2) K/uL PT (9.8-13.1) Seconds INR (0.9-1.2) APTT (25.6-37.1) Seconds Sodium (132-148) mmol/l Potassium (3.6-5.0) MMOL/L Chloride (98-107) mmol/L Carbon Dioxide (22-30) mmol/L Anion Gap (10-20) BUN (9-20) mg/dl Creatinine (0.8-1.5) mg/dl Est GFR ( Amer) Est GFR (Non-Af Amer) Random Glucose (75-110) mg/dL Calcium (8.4-10.2) mg/dL Valproic Acid 63.7 (50.0-100.0) ug/mL Blood Type A POSITIVE Antibody Screen Negative Crossmatch See Detail BBK History Checked No verified bt Laboratory Results - last 24 hr 12/06/17 12/07/17 12/08/17 01:45 17:07 04:25 WBC RBC Hgb Hct MCV MCH MCHC RDW Plt Count MPV Neut % (Auto) Lymph % (Auto) [place] % (Auto) Eos % (Auto) Baso % (Auto) Neut # Lymph # [place] # Eos # Baso # PT INR APTT Sodium Potassium Chloride Carbon Dioxide Anion Gap BUN Creatinine Est GFR ( Amer) Est GFR (Non-Af Amer) Random Glucose Calcium Valproic Acid 63.7 59.7 Blood Type A POSITIVE Antibody Screen Negative Crossmatch See Detail BBK History Checked No verified bt 12/08/17 12/08/17 12/08/17 04:25 04:25 04:25 WBC 5.8 RBC 2.72 L Hgb 8.3 L Hct 25.0 L MCV 91.9 MCH 30.6 MCHC 33.3 RDW 18.3 H Plt Count 78 L MPV 8.0 Neut % (Auto) 77.4 H Lymph % (Auto) 11.8 L [place] % (Auto) 9.5 Eos % (Auto) 0.8 Baso % (Auto) 0.5 Neut # 4.5 Lymph # 0.7 L [place] # 0.5 Eos # 0.0 Baso # 0.0 PT 16.2 H INR 1.5 H APTT 27.6 Sodium 137 Potassium 4.4 Chloride 100 Carbon Dioxide 27 Anion Gap 14 BUN 34 H Creatinine 6.2 H Est GFR ( Amer) 11 Est GFR (Non-Af Amer) 9 Random Glucose 90 Calcium 7.9 L Valproic Acid Blood Type Antibody Screen Crossmatch BBK History Checked 12/08/17 12/08/17 08:15 09:02 WBC 5.4 RBC 2.89 L Hgb 8.7 L Hct 26.7 L MCV 92.4 MCH 30.1 MCHC 32.6 L RDW 18.4 H Plt Count 82 L MPV Neut % (Auto) Lymph % (Auto) [place] % (Auto) Eos % (Auto) Baso % (Auto) Neut # Lymph # [place] # Eos # Baso # PT 16.4 H INR 1.5 H APTT 27.6 Sodium Potassium Chloride Carbon Dioxide Anion Gap BUN Creatinine Est GFR ( Amer) Est GFR (Non-Af Amer) Random Glucose Calcium Valproic Acid Blood Type Antibody Screen Crossmatch BBK History Checked Critical Care Progress Note - Nutrition Nutrition: Nutrition Category Date Time Status Dysphagia/Modified Consistency Diet [DIET] Diets 12/08/17 Dinner Active NPO Diet [DIET] Diets 12/09/17 Breakfast Active Attending/Attestation - Attestation I have personally seen and examined this patient.: Yes I have fully participated in the care of the patient.: Yes I have reviewed all pertinent clinical information: Yes Notes (Text): 12/08/17 17:01 Today: Friday, December 08, 2017 The patient was Seen/interviewed and examined by me at the bedside during ICU round, Medical records reviewed and Management issues were discussed and formulated with the house staff. Events reviewed I have reviewed all the relevant clinical, laboratory, hemodynamic, radiographic data and medications Pain issues, skin care, head of the bed elevation, glycemic control were addressed. I concur with resident's assessment and plan of care as transcribed in Dr. Gutierrez note. The case was extensively discussed with PMD, Hematology and neurosurgery and the plan for transfuse 2U FFP, 1U Platelets and Wt based DDAVP all given early in the morning, start at 3AM to all compete around 6AM, have labs repeat, Also will have one Unit Platelets and 2U RBC on hold for OR/post op. OR scheduled for 7:30AM
--- NOTE | 2017-12-08 12:17 | CP.PCM.PN ---
Subjective - Date & Time of Evaluation Date of Evaluation: 12/08/17 Time of Evaluation: 12:14 - Subjective Subjective: pt ws not medically clear for today attempts at correcting INR and PLT count did not raise them Dr Castaneda to attempt again to get these under better control If he cannot he will not clear the PT spoke to family with Mark translating explained everything theywish to proceed if he is clearable Surgery scheduled for tomorrow morning Objective - Vital Signs/Intake and Output Vital Signs (last 24 hours): Temp Pulse Resp BP Pulse Ox 98.6 F 75 18 132/49 L 100 12/08/17 08:00 12/08/17 09:38 12/08/17 08:00 12/08/17 09:38 12/08/17 08:00 Intake and Output: 12/08/17 12/08/17 06:59 18:59 Intake Total 1503 Balance 1503 - Medications Medications: Current Medications Amlodipine Besylate (Norvasc) 2.5 mg PO DAILY [facility] Last Admin: 12/08/17 09:38 Dose: Not Given Calcium Acetate (Phoslo) 667 mg PO TID [facility] [place] Last Admin: 12/08/17 09:38 Dose: Not Given Epoetin Triston (Procrit) 4,000 unit SC MWF [facility] [place] Last Admin: 12/07/17 12:56 Dose: 4,000 unit Valproate Sodium 750 mg/ (Sodium Chloride) 107.5 mls @ 0 mls/hr IVPB Q12 [facility] [place] PRN Reason: As Directed Last Admin: 12/08/17 09:35 Dose: Not Given Nicardipine HCl (Cardene Iv Premix) 20 mg in 200 mls @ 50 mls/hr IV .Q4H ONE; 5 MG/HR PRN Reason: Protocol Stop: 12/08/17 12:07 Last Admin: 12/08/17 10:19 Dose: 5 mg/hr, 50 mls/hr Lorazepam (Ativan) 2 mg IVP Q1 PRN PRN Reason: Seizure activity Pantoprazole Sodium (Protonix Ec Tab) 40 mg PO DAILY [facility] Last Admin: 12/08/17 09:38 Dose: Not Given Propranolol HCl (Inderal) 10 mg PO TID [facility] [place] Last Admin: 12/08/17 09:36 Dose: Not Given Sucralfate (Carafate Tab) 1 gm PO BID [facility] [place] Last Admin: 12/08/17 09:35 Dose: Not Given Valsartan (Diovan) 320 mg PO DAILY [facility] [place] Last Admin: 12/08/17 09:38 Dose: Not Given - Labs Labs: 12/08/17 08:15 12/08/17 04:25 PT 16.4 Seconds (9.8-13.1) H 12/08/17 09:02 INR 1.5 (0.9-1.2) H 12/08/17 09:02 APTT 27.6 Seconds (25.6-37.1) 12/08/17 09:02
[2017-12-08] MEDS ORDERED: Lacosamide 200mg/20ml 200 MG in Sodium Chloride 0.9% 100 ML IVPB ONE ×2 (12:32→13:00)
[2017-12-08] MEDS ORDERED: Valproate 1,500 MG in Sodium Chloride 0.9% 100 ML IVPB ONE (13:00)
--- NOTE | 2017-12-08 13:54 | CARD ---
APPROVED REPORT EXAM: Two-dimensional and M-mode echocardiogram with Doppler and color Doppler. Other Information Quality : GoodRhythm : NSR INDICATION CVA/TIA PFO 2D DIMENSIONS IVSd0.99 (0.7-1.1cm)LVDd4.71 (3.9-5.9cm) LVOT Diameter1.74 (1.8-2.4cm)PWd1.00 (0.7-1.1cm) IVSs1.36 (0.8-1.2cm)LVDs3.24 (2.5-4.0cm) FS (%) 31.2 %PWs1.46 (0.8-1.2cm) M-Mode DIMENSIONS Left Atrium (MM)4.74 (2.5-4.0cm)IVSd1.18 (0.7-1.1cm) Aortic Root2.47 (2.2-3.7cm)LVDd5.94 (4.0-5.6cm) Aortic Cusp Exc.1.76 (1.5-2.0cm)PWd1.03 (0.7-1.1cm) IVSs1.24 cmFS (%) 30 % LVDs4.15 (2.0-3.8cm)PWs1.41 cm Mitral Valve MV E Swkwcpsp670.4cm/sMV DECEL [id number] A Wccwqmdu46.8cm/s MV YNL17clT/A ratio1.4MVA (PHT)3.36cm2 TDI Lateral E' Peak V11.57cm/sMedial E' Peak V8.39cm/sE/Lateral E'9.9 E/Medial E'13.6 Pulmonary Valve PV Peak Wddkhezd888.6cm/s Tricuspid Valve TR Peak Wqblkvqo257ff/sRAP [id number] Peak Gr.30mmHg [id number] LEFT VENTRICLE The left ventricle is normal size. There is normal left ventricular wall thickness. The left ventricular function is normal. The left ventricular ejection fraction is 60% There is normal LV segmental wall motion. The left ventricular diastolic function is normal. No left ventricle thrombus noted on this study. There is no ventricular septal defect visualized. There is no left ventricular aneurysm. There is no mass noted in the left ventricle. RIGHT VENTRICLE The right ventricle is normal size. There is normal right ventricular wall thickness. The right ventricular systolic function is normal. ATRIA The left atrium size is normal. The right atrium size is normal. The interatrial septum is intact with no evidence for an atrial septal defect. No PFO could be clearly seen. AORTIC VALVE The aortic valve is mildly sclerotic. There is mild aortic regurgitation. There is no aortic valvular stenosis. There is no aortic valvular vegetation. MITRAL VALVE The mitral valve is normal in structure. There is no evidence of mitral valve prolapse. There is no mitral valve stenosis. Mitral regurgitation is mild. TRICUSPID VALVE The tricuspid valve is normal in structure. There is mild tricuspid regurgitation. There is no tricuspid valve prolapse or vegetation. There is no tricuspid valve stenosis. PULMONIC VALVE The pulmonary valve is normal in structure. There is no pulmonic valvular regurgitation. There is no pulmonic valvular stenosis. GREAT VESSELS The aortic root is normal in size. The ascending aorta is normal in size. The IVC is normal in size and collapses >50% with inspiration. PERICARDIAL EFFUSION The pericardium appears normal. There is no pleural effusion. <Conclusion> Normal LV systolic function Aortic Valve Sclerosis Mild Aortic Insufficiency Mild Mitral Regurgitation PFO not clearly visualized
--- NOTE | 2017-12-08 15:27 | CP.PCM.PN ---
Subjective - Date & Time of Evaluation Date of Evaluation: 12/08/17 Time of Evaluation: 15:27 - Subjective Subjective: 71 yr old male with liver cirrhosis, and UGI bleed secondary to esophageal varices, who was admitted with a subdural hematoma, discharge don 11/19. Pt presented to [facility] with c/o 6 days of left sided headache with associated numbness of right upper/lower extremities, fever/chills. He has a severe thrombocytopenia, etiology of which most likely is liver cirrhosis, and uremia based, as per . Spoke to , neurosurgeon about patient plan and . ON exam: AAOX2. Pupils 3mm-2mm with light. EOMI. no field cut. Speech fluent. Can name and repeat. Cannot intersect pentagons, or draw clock -- only draws dashes but can draw [place]. Cannot do serial 7s. However he can name and repeat well, in [place]. He is appropriate with his conversation. Motor: strength normal. sensory: normal. +dtr ul and ll bl. toes downgoing. no clonus. NO asterixis. Objective - Vital Signs/Intake and Output Vital Signs (last 24 hours): Temp Pulse Resp BP Pulse Ox 98.3 F 72 18 113/51 L 98 12/08/17 12:00 12/08/17 12:00 12/08/17 12:00 12/08/17 12:00 12/08/17 12:00 Intake and Output: 12/08/17 12/08/17 06:59 18:59 Intake Total 1503 Balance 1503 - Medications Medications: Current Medications Amlodipine Besylate (Norvasc) 2.5 mg PO DAILY [facility] Calcium Acetate (Phoslo) 667 mg PO TIDWM [facility] Last Admin: 12/08/17 13:44 Dose: Not Given Epoetin Triston (Procrit) 4,000 unit SC MWF [facility] Valproate Sodium 1,500 mg/ (Sodium Chloride) 115 mls @ 76.667 mls/hr IVPB ONCE ONE PRN Reason: Per Protocol Stop: 12/08/17 14:29 Last Admin: 12/08/17 13:40 Dose: 76.667 mls/hr Lorazepam (Ativan) 2 mg IVP Q1 PRN PRN Reason: Seizure activity Pantoprazole Sodium (Protonix Ec Tab) 40 mg PO DAILY [facility] Sucralfate (Carafate Tab) 1 gm PO BIDAC [facility] Valsartan (Diovan) 320 mg PO DAILY [facility] - Labs Labs: 12/08/17 08:15 12/08/17 04:25 PT 16.4 Seconds (9.8-13.1) H 12/08/17 09:02 INR 1.5 (0.9-1.2) H 12/08/17 09:02 APTT 27.6 Seconds (25.6-37.1) 12/08/17 09:02 Assessment and Plan - Assessment and Plan (Free Text) Plan: 71 yr old male with subdural hematoma, and a coagulation disorder. He also has localization related epilepsy, which we are treating with depakote, but will change to keppra. Plan: 1. Discontinue depakote and start keppra IV 1000 mg now and 750 bid. 2. COntinue vimpat 100 bid iv 3. Repeat CT scan.
[2017-12-08] MEDS ORDERED: levETIRAcetam 1,000 MG in Sodium Chloride 0.9% 100 ML IVPB ONE (15:28)
--- NOTE | 2017-12-08 17:00 | CT ---
PROCEDURE: CT HEAD WITHOUT CONTRAST. HISTORY: subdural hematoma COMPARISON: 12/06/2017, 12/07/2017. None available. TECHNIQUE: Axial computed tomography images were obtained through the head/brain without intravenous contrast. Radiation dose: Total exam DLP = 897.22 mGy-cm. This CT exam was performed using one or more of the following dose reduction techniques: Automated exposure control, adjustment of the mA and/or kV according to patient size, and/or use of iterative reconstruction technique. FINDINGS: HEMORRHAGE: No acute intracranial hemorrhage. BRAIN: Stable extra-axial fluid collection, of left frontoparietal chronic subdural hematoma. No evidence of new/ superimposed acute hemorrhage. No atrophy or chronic microvascular ischemic changes. VENTRICLES: Unremarkable. No hydrocephalus. CALVARIUM: Unremarkable. PARANASAL SINUSES: Unremarkable as visualized. No significant inflammatory changes. MASTOID AIR CELLS: Unremarkable as visualized. No inflammatory changes. OTHER FINDINGS: None. IMPRESSION: No acute intracranial abnormalities or significant interval changes. Stable chronic subdural hematoma/ extra-axial fluid collection right frontal parietal region. No new/ acute abnormalities or appreciable interval change.
--- NOTE | 2017-12-08 17:16 | US ---
PROCEDURE: Duplex ultrasound of the carotid and vertebral arteries. HISTORY: r/o VBI COMPARISON: None available. TECHNIQUE: Grayscale and duplex Doppler evaluation of the cervical carotid and vertebral arteries were performed. The common carotid, carotid bifurcations and cervical ICA and proximal ECA were evaluated. The vertebral arteries were evaluated for gross patency and direction. FINDINGS: RIGHT CAROTID ARTERIES: Common Carotid Artery: Normal. Maximal flow velocity of 63.7 cm/s. Carotid Bifurcation: Normal. Internal Carotid Artery:Normal. Maximal flow velocity of 78.3 cm/s. External Carotid Artery (proximal branches): Normal. Maximal flow velocity of 113.0 cm/s. ICA/CCA Ratio: 1.2 LEFT CAROTID ARTERIES: Common Carotid Artery: Normal. Maximal flow velocity of 88.9 cm/s. Carotid Bifurcation: Normal. Internal Carotid Artery:Normal. Maximal flow velocity of 69.5 cm/s. External Carotid Artery (proximal branches): Normal. Maximal flow velocity of 68.3 cm/s. ICA/CCA Ratio: 1.0. VERTEBRAL ARTERIES: Right Vertebral Artery: Patent. Antegrade flow. Left Vertebral Artery: Patent. Antegrade flow. OTHER FINDINGS: None. IMPRESSION: Right ICA degree of stenosis: Less than 50% Left ICA degree of stenosis: Less than 50% Reference Internal Carotid Artery (ICA) Peak Systolic Velocity (PSV) for above: 1. Less than 50% stenosis less than 125 cm/s peak systolic velocity 2. 50-69% stenosis 125-230cm/s peak systolic velocity 3. Greater than 70% but less than near occlusion greater than 230 cm/s peak systolic velocity
[2017-12-08] MEDS ORDERED: Dextrose 5%/0.45% NS 1,000 ML IV SCH (19:00)
--- NOTE | 2017-12-08 20:37 | CP.PCM.PN ---
Subjective - Date & Time of Evaluation Date of Evaluation: 12/08/17 Time of Evaluation: 10:00 - Subjective Subjective: Appears comfortable, family at bedside s/p 1 bag platelets, 2U FFP and desmopressin overnight Objective - Vital Signs/Intake and Output Vital Signs (last 24 hours): Temp Pulse Resp BP Pulse Ox 98.4 F 80 13 122/69 100 12/08/17 16:00 12/08/17 18:00 12/08/17 18:00 12/08/17 18:00 12/08/17 18:00 Intake and Output: 12/08/17 12/09/17 18:59 06:59 Intake Total 1382 0 Output Total 0 Balance 1382 0 - Medications Medications: Current Medications Amlodipine Besylate (Norvasc) 2.5 mg PO DAILY [facility] Calcium Acetate (Phoslo) 667 mg PO TIDWM [facility] Last Admin: 12/08/17 17:09 Dose: 667 mg Desmopressin Acetate (Ddavp) 15 mcg IVP ONCE ONE Stop: 12/09/17 05:31 Epoetin Triston (Procrit) 4,000 unit SC MWF [facility] Levetiracetam 750 mg/ Sodium (Chloride) 107.5 mls @ 215 mls/hr IVPB Q12@0500, 1700 [facility] Dextrose/Sodium Chloride (Dextrose 5%/0.45% Ns 1000 Ml) 1,000 mls @ 50 mls/hr IV .Q20H [facility] Stop: 12/09/17 18:49 Lorazepam (Ativan) 2 mg IVP Q1 PRN PRN Reason: Seizure activity Pantoprazole Sodium (Protonix Ec Tab) 40 mg PO DAILY [facility] Last Admin: 12/08/17 17:10 Dose: 40 mg Sucralfate (Carafate Tab) 1 gm PO BIDAC [facility] Last Admin: 12/08/17 17:08 Dose: 1 gm Valsartan (Diovan) 320 mg PO DAILY [facility] - Labs Labs: 12/08/17 08:15 12/08/17 04:25 PT 16.4 Seconds (9.8-13.1) H 12/08/17 09:02 INR 1.5 (0.9-1.2) H 12/08/17 09:02 APTT 27.6 Seconds (25.6-37.1) 12/08/17 09:02 - Head Exam Head Exam: ATRAUMATIC - Eye Exam Eye Exam: Normal appearance - ENT Exam ENT Exam: Mucous Membranes Dry - Respiratory Exam Respiratory Exam: NORMAL BREATHING PATTERN - Cardiovascular Exam Cardiovascular Exam: +S1, +S2 - GI/Abdominal Exam GI & Abdominal Exam: Normal Bowel Sounds Assessment and Plan (1) Coagulopathy Assessment & Plan: liver disease s/p vit k and FFP; no correction noted in INR to receive an additional 2U FFP prior to OR goal INR < 1.5 for neurosurgery Status: Acute (2) Thrombocytopenia Assessment & Plan: liver disease, splenic sequestration, platelet dysfunction from uremia s/p 1 bag platelets with no platelet bump to receive 1 bag platelets and desmopression prior to OR goal platelet count minimum 100,000 for neurosurgery Status: Acute (3) Anemia Assessment & Plan: renal disease and likely occult GI blood loss Status: Acute
[2017-12-09] MEDS ORDERED: Desmopressin 4 mcg/ml Inj (1 ml) IVP ONE (05:30)
[2017-12-09] MEDS ORDERED: Desmopressin 15 MCG in Sodium Chloride 0.9% 50 ML IV ONE (05:30)
[2017-12-09] MEDS ORDERED: Nicardipine 20 MG/200 ML 20 MG/200 ML BAG IV ONE ×2 (06:53→19:14)
[2017-12-09] MEDS ORDERED: Thrombin Topical 5,000 Int Units Spray Kit ONE (07:21)
[2017-12-09] MEDS ORDERED: Absorbable Gelatin Sponge Size 100 ONE (07:21)
[2017-12-09] MEDS ORDERED: Bacitracin Ointment 30 GM TUBE ONE (07:21)
[2017-12-09] MEDS ORDERED: Liquid Adhesive TOP ONE (07:21)
[2017-12-09 07:23] LABS: HEMOGLOBIN 7.9 g/dL (12.0-18.0); MEAN CELL VOLUME 91.1 fl (80.0-94.0); MEAN CORPUSCULAR HEMOGLOBIN 30.3 pg (27.0-31.0); MEAN CORPUSCULAR HGB CONC 33.3 g/dL (33.0-37.0); RBC 2.62 Mil/uL (4.40-5.90); RED CELL DISTRIBUTION WIDTH 18.4 % (11.5-14.5); WHITE BLOOD COUNT 5.9 K/uL (4.8-10.8)
[2017-12-09] MEDS ORDERED: Rocuronium 10 mg/ml (5 ml) ONE (07:28)
[2017-12-09] MEDS ORDERED: ePHEDrine 50 mg/ml Inj ONE (07:28)
[2017-12-09] MEDS ORDERED: Phenylephrine 10 mg/ml Inj ONE (07:28)
[2017-12-09] MEDS ORDERED: Etomidate 20 mg/10ml Inj IV ONE (07:28)
[2017-12-09 07:41] LABS: INR 1.4 (0.9-1.2); PARTIAL THROMBOPLASTIN TIME 27.7 Seconds (25.6-37.1); PROTHROMBIN TIME 15.7 Seconds (9.8-13.1)
[2017-12-09 07:43] LABS: ALBUMIN 3.3 g/dL (3.5-5.0)
[2017-12-09] MEDS ORDERED: Epoetin Alfa 4000 UNIT/ML Inj SC SCH (09:00)
--- NOTE | 2017-12-09 09:03 | CP.PCM.PN ---
Subjective - Date & Time of Evaluation Date of Evaluation: 12/09/17 Time of Evaluation: 09:00 - Subjective Subjective: pt remains fully awake alert nl speech no motor weakness no drift Not hematologically cleared after tx with plts and ffp labs remain unchanged At this point will not operate until either medically clear or has drastic change for worse in mssuggest mobilization Objective - Vital Signs/Intake and Output Vital Signs (last 24 hours): Temp Pulse Resp BP Pulse Ox 98.8 F 78 18 145/69 95 12/09/17 08:00 12/09/17 08:00 12/09/17 08:00 12/09/17 08:00 12/09/17 08:00 Intake and Output: 12/09/17 12/09/17 06:59 18:59 Intake Total 1300 50 Balance 1300 50 - Medications Medications: Current Medications Amlodipine Besylate (Norvasc) 2.5 mg PO DAILY [facility] Calcium Acetate (Phoslo) 667 mg PO TIDWM [facility] Last Admin: 12/08/17 17:09 Dose: 667 mg Epoetin Triston (Procrit) 4,000 unit SC MWF [facility] Levetiracetam 750 mg/ Sodium (Chloride) 107.5 mls @ 215 mls/hr IVPB Q12@0500, 1700 [facility] Last Admin: 12/09/17 04:27 Dose: 215 mls/hr Dextrose/Sodium Chloride (Dextrose 5%/0.45% Ns 1000 Ml) 1,000 mls @ 50 mls/hr IV .Q20H [facility] Stop: 12/09/17 18:49 Last Admin: 12/08/17 19:40 Dose: 50 mls/hr Nicardipine HCl (Cardene Iv Premix) 20 mg in 200 mls @ 25 mls/hr IV .Q8H ONE; 2.5 MG/HR PRN Reason: Protocol Stop: 12/09/17 14:52 Last Admin: 12/09/17 06:59 Dose: 2.5 mg/hr, 25 mls/hr Lorazepam (Ativan) 2 mg IVP Q1 PRN PRN Reason: Seizure activity Pantoprazole Sodium (Protonix Ec Tab) 40 mg PO DAILY [facility] Last Admin: 12/08/17 17:10 Dose: 40 mg Sucralfate (Carafate Tab) 1 gm PO BIDAC [facility] Last Admin: 12/08/17 17:08 Dose: 1 gm Valsartan (Diovan) 320 mg PO DAILY [facility] - Labs Labs: 12/09/17 07:16 12/09/17 07:16 PT 15.7 Seconds (9.8-13.1) H 12/09/17 07:16 INR 1.4 (0.9-1.2) H 12/09/17 07:16 APTT 27.7 Seconds (25.6-37.1) 12/09/17 07:16
[2017-12-09] MEDS: Pantoprazole 40 mg EC Tab PO SCH (09:52)
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
--- NOTE | 2017-12-09 11:58 | CP.CCUPN ---
<Nani Gutierrez - Last Filed: 12/09/17 13:27> CCU Subjective - Physician Review Subjective (Free Text): Patient more awake and alert. Feeling better. No complaints. Receiving dialysis at time of visit. BP to be controlled with PO medications. Will try to d/c cardene drip. Daily Head CTs. Case was discussed with Dr. Lau. CCU Objective - Vital Signs / Intake & Output Vital Signs (Last 4 hours): Vital Signs Temp Pulse Resp BP Pulse Ox 12/09/17 11:00 80 22 164/74 H 99 12/09/17 10:04 98 H 178/66 H 12/09/17 10:00 68 21 178/66 H 100 12/09/17 09:00 74 21 137/66 97 12/09/17 08:00 98.8 F 78 18 145/69 95 Intake and Output (Last 8hrs): Intake & Output 12/08/17 12/09/17 12/09/17 22:59 06:59 14:59 Intake Total 1482 1200 150 Output Total 0 Balance 1482 1200 150 Intake: IV 802 200 150 Intake, Piggyback 500 200 Oral 180 Blood Product 800 Output: Urine 0 Urine, Voided 0 Other: # Bowel Movements 0 - Physical Exam Head: Positive for: Atraumatic, Normocephalic Pupils: Positive for: PERRL Extroacular Muscles: Positive for: EOMI Mouth: Positive for: Moist Mucous Membranes Neck: Positive for: Normal Range of Motion Respiratory/Chest: Positive for: Clear to Auscultation, Good Air Exchange. Negative for: Respiratory Distress, Accessory Muscle Use, Decreased Breath Sounds Cardiovascular: Positive for: Regular Rate and Rhythm, Murmurs (+), Normal S1, S2 Abdomen: Negative for: Tenderness, Distention Upper Extremity: Positive for: Other (left arm fistula). Negative for: Edema Lower Extremity: Positive for: Normal Inspection. Negative for: Edema Neurological: Positive for: Speech Normal, Motor Func Grossly Intact, Other ( gait deferred) Skin: Positive for: Warm, Dry, Normal Color Psychiatric: Positive for: Alert, Oriented x 3, Normal Mood - Medications Active Medications: Active Medications Generic Name Dose Route Start Last Admin Trade Name Freq PRN Reason Stop Dose Admin Calcium Acetate 667 mg 12/08/17 13:00 01/24/18 09:52 Phoslo PO 667 mg TIDWM [facility] Administration Epoetin Triston 4,000 unit 12/09/17 09:00 12/09/17 09:53 Procrit SC 4,000 unit MWF [facility] Administration Levetiracetam 750 mg/ Sodium 107.5 mls @ 215 mls/hr 12/09/17 05:00 12/09/17 04:27 Chloride IVPB 215 mls/hr Q12@0500,1700 [facility] Administration Dextrose/Sodium Chloride 1,000 mls @ 50 mls/hr 12/08/17 19:00 12/08/17 19:40 Dextrose 5%/0.45% Ns 1000 Ml IV 12/09/17 18:49 50 mls/hr .Q20H [facility] Administration Nicardipine HCl 20 mg in 200 mls @ 25 mls/hr 12/09/17 06:53 12/09/17 06:59 Cardene Iv Premix IV 12/09/17 14:52 2.5 mg/hr .Q8H ONE 25 mls/hr Protocol Administration 2.5 MG/HR Lorazepam 2 mg 12/08/17 12:37 Ativan IVP Q1 PRN Seizure activity Pantoprazole Sodium 40 mg 12/09/17 09:00 12/09/17 09:52 Protonix Ec Tab PO 40 mg DAILY [facility] Administration Sucralfate 1 gm 12/08/17 16:30 12/09/17 09:50 Carafate Tab PO Not Given BIDAC [facility] Valsartan 320 mg 12/09/17 09:00 12/09/17 09:51 Diovan PO 320 mg DAILY [facility] Administration - Patient Studies Lab Studies: Microbiology Studies 12/06/17 06:41 Blood Culture - Preliminary Blood-Venous NO GROWTH AFTER 3 DAYS 12/06/17 06:30 Blood Culture - Preliminary Blood-Venous NO GROWTH AFTER 3 DAYS Lab Studies 12/09/17 12/09/17 12/09/17 Range/Units 07:16 07:16 07:16 WBC 5.9 (4.8-10.8) K/uL RBC 2.62 L (4.40-5.90) Mil/uL Hgb 7.9 L (12.0-18.0) g/dL Hct 23.8 L (35.0-51.0) % MCV 91.1 (80.0-94.0) fl MCH 30.3 (27.0-31.0) pg MCHC 33.3 (33.0-37.0) g/dL RDW 18.4 H (11.5-14.5) % Plt Count 87 L (130-400) K/uL PT 15.7 H (9.8-13.1) Seconds INR 1.4 H (0.9-1.2) APTT 27.7 (25.6-37.1) Seconds Sodium 139 (132-148) mmol/l Potassium 4.7 (3.6-5.0) MMOL/L Chloride 99 (98-107) mmol/L Carbon Dioxide 24 (22-30) mmol/L Anion Gap 21 H (10-20) BUN 47 H (9-20) mg/dl Creatinine 8.1 H* D (0.8-1.5) mg/dl Est GFR ( Amer) 8 Est GFR (Non-Af Amer) 7 Random Glucose 98 (75-110) mg/dL Calcium 8.0 L (8.4-10.2) mg/dL Total Bilirubin 0.8 (0.2-1.3) mg/dl AST 22 (17-59) U/L ALT 23 (21-72) U/L Alkaline Phosphatase 118 (38-126) U/L Ammonia (16-60) umo/L Total Protein 6.6 (6.3-8.2) G/DL Albumin 3.3 L (3.5-5.0) g/dL Globulin 3.2 (2.2-3.9) gm/dL Albumin/Globulin Ratio 1.0 (1.0-2.1) Blood Type Antibody Screen Crossmatch BBK History Checked 12/09/17 12/08/17 Range/Units 01:46 17:29 WBC (4.8-10.8) K/uL RBC (4.40-5.90) Mil/uL Hgb (12.0-18.0) g/dL Hct (35.0-51.0) % MCV (80.0-94.0) fl MCH (27.0-31.0) pg MCHC (33.0-37.0) g/dL RDW (11.5-14.5) % Plt Count (130-400) K/uL PT (9.8-13.1) Seconds INR (0.9-1.2) APTT (25.6-37.1) Seconds Sodium (132-148) mmol/l Potassium (3.6-5.0) MMOL/L Chloride (98-107) mmol/L Carbon Dioxide (22-30) mmol/L Anion Gap (10-20) BUN (9-20) mg/dl Creatinine (0.8-1.5) mg/dl Est GFR ( Amer) Est GFR (Non-Af Amer) Random Glucose (75-110) mg/dL Calcium (8.4-10.2) mg/dL Total Bilirubin (0.2-1.3) mg/dl AST (17-59) U/L ALT (21-72) U/L Alkaline Phosphatase (38-126) U/L Ammonia 19 (16-60) umo/L Total Protein (6.3-8.2) G/DL Albumin (3.5-5.0) g/dL Globulin (2.2-3.9) gm/dL Albumin/Globulin Ratio (1.0-2.1) Blood Type A POSITIVE Antibody Screen Negative Crossmatch See Detail BBK History Checked Patient has bt Laboratory Results - last 24 hr 12/08/17 12/09/17 12/09/17 17:29 01:46 07:16 WBC 5.9 RBC 2.62 L Hgb 7.9 L Hct 23.8 L MCV 91.1 MCH 30.3 MCHC 33.3 RDW 18.4 H Plt Count 87 L PT INR APTT Sodium Potassium Chloride Carbon Dioxide Anion Gap BUN Creatinine Est GFR ( Amer) Est GFR (Non-Af Amer) Random Glucose Calcium Total Bilirubin AST ALT Alkaline Phosphatase Ammonia 19 Total Protein Albumin Globulin Albumin/Globulin Ratio Blood Type A POSITIVE Antibody Screen Negative Crossmatch See Detail BBK History Checked Patient has bt 12/09/17 12/09/17 07:16 07:16 WBC RBC Hgb Hct MCV MCH MCHC RDW Plt Count PT 15.7 H INR 1.4 H APTT 27.7 Sodium 139 Potassium 4.7 Chloride 99 Carbon Dioxide 24 Anion Gap 21 H BUN 47 H Creatinine 8.1 H* D Est GFR ( Amer) 8 Est GFR (Non-Af Amer) 7 Random Glucose 98 Calcium 8.0 L Total Bilirubin 0.8 AST 22 ALT 23 Alkaline Phosphatase 118 Ammonia Total Protein 6.6 Albumin 3.3 L Globulin 3.2 Albumin/Globulin Ratio 1.0 Blood Type Antibody Screen Crossmatch BBK History Checked Fingerstick Blood Sugar Results: 106 Critical Care Progress Note - Nutrition Nutrition: Nutrition Category Date Time Status Dysphagia/Modified Consistency Diet [DIET] Diets 12/09/17 Lunch Active Assessment/Plan - Assessment and Plan (Free Text) Assessment: 71 year old male with recent hospitalization due to UGI bleed 2 to esophageal varices with chronic subdural hematoma presented with headache admitted for SDH. Patient clinically improved this morning. Awake and alert. Following commands, conversation appropriate. No surgical intervention planned as patient is high risk and clinically improving. Follow up CT head. Assessment/Plan: Neuro: Subdural hematoma with midline shift, seizures. SDH stable. Seizures controlled since starting Keppra on 12/08/17. No plans to go to OR. WIll continue with conservative management. Neurology/Neurosurgery are following. Cardiovascular: HTN: currently controlled on Cardene drip, start PO diovan/ Norvasc. Respiratory: unlabored breathing, 100% on RA GI: Recent UGI bleed due to esophageal varices, Liver Cirrhosis: LFTS WNL. Protonix, Sucralfate, and propranolol. Renal/: ESRD on HD, MWF. Dialysis today. Heme: Coagulopathy: thrombocytopenia, elevated INR, Anemia. Likely 2' to liver cirrhosis and real disease. Currently stable, received 2 units of FFP/1 unit of platelets this morning. Prophylaxis: GI: protonix DVT: SCDS given coagulopathy/subdural hematoma PT/OT to see patient. Case discussed with Dr. Culver <Heath Culver - Last Filed: 12/09/17 15:14> CCU Subjective - Physician Review Subjective (Free Text): Attestation: Patient seen and examined at the bedside with Resident Dr. Caren Gutierrez; and I agree with her outline of plans and management documented above as discussed on AM rounds reflecting my review of all applicable clinical data, and participation in the care of the patient throughout the day in ICU; December 09, 2017.
[2017-12-09] MEDS ORDERED: Labetalol 5 mg/ml Inj 20ML IVP STA (13:08)
--- NOTE | 2017-12-09 15:19 | CT ---
PROCEDURE: CT HEAD WITHOUT CONTRAST. HISTORY: eval subdural hematoma COMPARISON: 12/08/2017 TECHNIQUE: Axial computed tomography images were obtained through the head/brain without intravenous contrast. Radiation dose: Total exam DLP = 1691 mGy-cm. This CT exam was performed using one or more of the following dose reduction techniques: Automated exposure control, adjustment of the mA and/or kV according to patient size, and/or use of iterative reconstruction technique. FINDINGS: HEMORRHAGE: No acute intracranial hemorrhage. BRAIN: The previously referenced left fronto parietal extra axial fluid collection compatible with a chronic subdural hematoma similar-appearing. No interval re- hemorrhage or other and interval collections are hemorrhage suggested. The slight rightward midline shift of approximately 3 mm is similar. No gross atrophy or chronic microvascular ischemic changes. VENTRICLES: Unremarkable. No hydrocephalus. CALVARIUM: Unremarkable. PARANASAL SINUSES: Unremarkable as visualized. No significant inflammatory changes. MASTOID AIR CELLS: Unremarkable as visualized. No inflammatory changes. OTHER FINDINGS: None. IMPRESSION: Chronic left subdural. Minimal rightward midline shift of 3 mm ; no interval change perceived
--- NOTE | 2017-12-09 16:50 | CP.PCM.PN ---
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 Breath sounds bilateral equal and clear Heart: Normal rate. s1s2 normal. No rub or gallop. Extremities: no edema. No varicose veins Neurological: Patient is drowsy Skin: Warm and dry. Normal turgor. No rash. Abdomen: Abdomen is soft. Bowel sounds +. Psych: drowsy MSK: no joint tenderness or swelling. Access: AVF Objective - Vital Signs/Intake and Output Vital Signs (last 24 hours): Temp Pulse Resp BP Pulse Ox 98.8 F 88 20 155/78 H 96 12/09/17 16:00 12/09/17 16:17 12/09/17 16:00 12/09/17 16:17 12/09/17 16:00 Intake and Output: 12/09/17 12/09/17 06:59 18:59 Intake Total 1300 940 Output Total 1000 Balance 1300 -60 - Medications Medications: Current Medications Amlodipine Besylate (Norvasc) 10 mg PO DAILY [facility] Calcium Acetate (Phoslo) 667 mg PO TIDWM [facility] Last Admin: 12/09/17 16:17 Dose: 667 mg Epoetin Triston (Procrit) 4,000 unit SC MWF [facility] Last Admin: 12/09/17 09:53 Dose: 4,000 unit Levetiracetam 750 mg/ Sodium (Chloride) 107.5 mls @ 215 mls/hr IVPB Q12@0500, 1700 [facility] Last Admin: 12/09/17 16:18 Dose: 215 mls/hr Dextrose/Sodium Chloride (Dextrose 5%/0.45% Ns 1000 Ml) 1,000 mls @ 50 mls/hr IV .Q20H [facility] Stop: 12/09/17 18:49 Last Admin: 12/08/17 19:40 Dose: 50 mls/hr Lorazepam (Ativan) 2 mg IVP Q1 PRN PRN Reason: Seizure activity Pantoprazole Sodium (Protonix Ec Tab) 40 mg PO DAILY [facility] Last Admin: 12/09/17 09:52 Dose: 40 mg Propranolol HCl (Inderal) 10 mg PO BID [facility] Last Admin: 12/09/17 16:17 Dose: 10 mg Sucralfate (Carafate Tab) 1 gm PO BIDAC [facility] Last Admin: 12/09/17 16:17 Dose: 1 gm Valsartan (Diovan) 320 mg PO DAILY [facility] Last Admin: 12/09/17 09:51 Dose: 320 mg - Labs Labs: 12/09/17 07:16 12/09/17 07:16 PT 15.7 Seconds (9.8-13.1) H 12/09/17 07:16 INR 1.4 (0.9-1.2) H 12/09/17 07:16 APTT 27.7 Seconds (25.6-37.1) 12/09/17 07:16
--- NOTE | 2017-12-09 17:08 | EEG ---
DATE: REFERRING DOCTOR: Dr. Eric Sargent. TECHNICAL: Electrodes were placed according to the 10/20 [employer] Electrode System, and were 16 in number. EEG activity was digitally recorded referentially to P1/P2 or A1/A2 electrodes. Digital analysis with the use of spike detection. DESCRIPTION: The posterior dominant rhythm is slow at 6-7 Hz. It is symmetric, did not attenuate with the eye opening and . There is more than normal amount of drowsiness present throughout the study. Frontal theta was present In normal amounts. No normal sleep is captured. There was an EKG artifact present throughout the study. There were no clinical or subclinical seizures. There were no focal interictal epileptiform discharges. Hyperventilation post stimulation were not done. IMPRESSION: This is an abnormal awake and drowsy electroencephalogram with presence of diffuse generalized slowing and probably due to his postictal state or toxic and metabolic encephalopathy. Clinical correlation is recommended. Abner Lau MD
--- NOTE | 2017-12-09 21:45 | CP.PCM.PN ---
Subjective - Date & Time of Evaluation Date of Evaluation: 12/09/17 Time of Evaluation: 18:05 - Subjective Subjective: Appears comfortable, more responsive. s/p 1 bag platelets, 2U FFP today Objective - Vital Signs/Intake and Output Vital Signs (last 24 hours): Temp Pulse Resp BP Pulse Ox 98.8 F 73 24 150/70 96 12/09/17 16:00 12/09/17 18:00 12/09/17 18:00 12/09/17 18:00 12/09/17 18:00 Intake and Output: 12/09/17 12/10/17 18:59 06:59 Intake Total 1190 100 Output Total 1000 Balance 190 100 - Medications Medications: Current Medications Amlodipine Besylate (Norvasc) 10 mg PO DAILY [facility] Calcium Acetate (Phoslo) 667 mg PO TIDWM [facility] Last Admin: 12/09/17 16:17 Dose: 667 mg Epoetin Triston (Procrit) 4,000 unit SC MWF [facility] Last Admin: 12/09/17 09:53 Dose: 4,000 unit Levetiracetam 750 mg/ Sodium (Chloride) 107.5 mls @ 215 mls/hr IVPB Q12@0500, 1700 [facility] Last Admin: 12/09/17 16:18 Dose: 215 mls/hr Nicardipine HCl (Cardene Iv Premix) 20 mg in 200 mls @ 50 mls/hr IV .Q4H ONE; 5 MG/HR PRN Reason: Protocol Stop: 12/09/17 23:13 Last Admin: 12/09/17 19:56 Dose: 5 mg/hr, 50 mls/hr Lorazepam (Ativan) 2 mg IVP Q1 PRN PRN Reason: Seizure activity Pantoprazole Sodium (Protonix Ec Tab) 40 mg PO DAILY [facility] Last Admin: 12/09/17 09:52 Dose: 40 mg Propranolol HCl (Inderal) 10 mg PO BID [facility] Last Admin: 12/09/17 16:17 Dose: 10 mg [facility] Last Admin: 12/09/17 16:17 Dose: 1 gm Valsartan (Diovan) 320 mg PO DAILY [facility] Last Admin: 12/09/17 09:51 Dose: 320 mg - Labs Labs: 12/09/17 07:16 12/09/17 07:16 PT 15.7 Seconds (9.8-13.1) H 12/09/17 07:16 INR 1.4 (0.9-1.2) H 12/09/17 07:16 APTT 27.7 Seconds (25.6-37.1) 12/09/17 07:16 - Head Exam Head Exam: ATRAUMATIC - Eye Exam Eye Exam: Normal appearance - ENT Exam ENT Exam: Mucous Membranes Dry - Respiratory Exam Respiratory Exam: NORMAL BREATHING PATTERN - Cardiovascular Exam Cardiovascular Exam: +S1, +S2 - GI/Abdominal Exam GI & Abdominal Exam: Normal Bowel Sounds - Extremities Exam Extremities Exam: Normal Inspection Assessment and Plan (1) Coagulopathy Assessment & Plan: liver disease s/p vit k and several units of FFP INR < 1.5 for neurosurgery Status: Acute (2) Thrombocytopenia Assessment & Plan: liver disease, splenic sequestration, platelet dysfunction from uremia s/p several bags of platelet transfusion goal plt minimum 100,000 for neurosurgery Status: Acute (3) Anemia Assessment & Plan: renal disease on EPO likely intermitted GI blood loss Status: Acute
[2017-12-09 22:10] LABS: HEPATITIS B SURFACE AG Negative (NEGATIVE)
[2017-12-09 22:29] LABS: HEPATITIS C ANTIBODY NEGATIVE (NEGATIVE)
[2017-12-10] MEDS ORDERED: Nicardipine 20 MG/200 ML 20 MG/200 ML BAG IV ONE (03:42)
[2017-12-10 05:58] LABS: MEAN CELL VOLUME 91.6 fl (80.0-94.0); MEAN CORPUSCULAR HEMOGLOBIN 30.5 pg (27.0-31.0); MEAN CORPUSCULAR HGB CONC 33.3 g/dL (33.0-37.0); RBC 2.64 Mil/uL (4.40-5.90); RED CELL DISTRIBUTION WIDTH 17.9 % (11.5-14.5); WHITE BLOOD COUNT 4.7 K/uL (4.8-10.8)
[2017-12-10 06:06] LABS: CALCIUM 8.4 mg/dL (8.4-10.2)
[2017-12-10] MEDS: Pantoprazole 40 mg EC Tab PO SCH (08:45)
--- NOTE | 2017-12-10 09:11 | CP.PCM.PN ---
Subjective - Date & Time of Evaluation Date of Evaluation: 12/10/17 Time of Evaluation: 09:02 - Subjective Subjective: Mr. Manzanares was seen and examined at the bedside in ICU. He is awake but response to one question. He is able to follow some commands such as strength test. After the first command, he becomes non- verbal , but moves his extremities spontaneously. There is no clonic-tonic movements, no blank stares, or any focal movement. His vital signs remains stable. There was no untoward events overnight. Objective - Vital Signs/Intake and Output Vital Signs (last 24 hours): Temp Pulse Resp BP Pulse Ox 98.0 F 73 19 145/77 100 12/10/17 04:00 12/10/17 08:45 12/10/17 06:00 12/10/17 08:45 12/10/17 06:00 Intake and Output: 12/10/17 12/10/17 06:59 18:59 Intake Total 300 Balance 300 - Medications Medications: Current Medications Acetaminophen (Tylenol 325mg Tab) 650 mg PO Q6 PRN PRN Reason: Headache Last Admin: 12/09/17 22:30 Dose: 650 mg Amlodipine Besylate (Norvasc) 10 mg PO DAILY [facility] Last Admin: 12/10/17 08:45 Dose: 10 mg Calcium Acetate (Phoslo) 667 mg PO TIDWM [facility] Last Admin: 12/10/17 08:44 Dose: 667 mg Epoetin Triston (Procrit) 4,000 unit SC MWF [facility] Last Admin: 12/09/17 09:53 Dose: 4,000 unit Levetiracetam 750 mg/ Sodium (Chloride) 107.5 mls @ 215 mls/hr IVPB Q12@0500, 1700 [facility] Last Admin: 12/10/17 04:08 Dose: 215 mls/hr Nicardipine HCl (Cardene Iv Premix) 20 mg in 200 mls @ 25 mls/hr IV .Q8H ONE; 2.5 MG/HR PRN Reason: Protocol Stop: 12/10/17 11:41 Last Admin: 12/10/17 04:08 Dose: 2.5 mg/hr, 25 mls/hr Lorazepam (Ativan) 2 mg IVP Q1 PRN PRN Reason: Seizure activity Pantoprazole Sodium (Protonix Ec Tab) 40 mg PO DAILY [facility] Last Admin: 12/10/17 08:45 Dose: 40 mg Propranolol HCl (Inderal) 10 mg PO BID [facility] Last Admin: 12/09/17 16:17 Dose: 10 mg Sucralfate (Carafate Tab) 1 gm PO BIDAC [facility] Last Admin: 12/10/17 08:41 Dose: 1 gm Valsartan (Diovan) 320 mg PO DAILY [facility] Last Admin: 12/10/17 08:42 Dose: 320 mg - Labs Labs: 12/10/17 04:30 12/10/17 04:30 PT 15.7 Seconds (9.8-13.1) H 12/09/17 07:16 INR 1.4 (0.9-1.2) H 12/09/17 07:16 APTT 27.7 Seconds (25.6-37.1) 12/09/17 07:16 - Constitutional Appears: No Acute Distress - Head Exam Head Exam: NORMAL INSPECTION - Neurological Exam Neurological Exam: Alert, Awake Neuro motor strength exam: Left Upper Extremity: 5, Right Upper Extremity: 5, Left Lower Extremity: 5, Right Lower Extremity: 5 Additional comments: He is able to answer one questions and follows one command. He moves all his extremities spontaneously. Assessment and Plan (1) Seizure Assessment & Plan: Case discussed with na Helton all current medical regimen including AED' s. Please refer to attending regarding other blood work abnormality. Recommend repeat CT of the head without contrast todat. Status: Acute
--- NOTE | 2017-12-10 11:30 | CP.CCUPN ---
<Chichi Gutierrezalejandrina - Last Filed: 12/10/17 11:17> CCU Subjective - Physician Review Subjective (Free Text): Patient awake and alert this morning. Not much appetite, bedside encouraging PO intake. Complaining of left sided headache, unable to describe quality of pain, states present since yesterday. No changes in vision. Repeat CT head this AM. CCU Objective - Vital Signs / Intake & Output Vital Signs (Last 4 hours): Vital Signs Temp Pulse Resp BP Pulse Ox 12/10/17 10:00 74 19 134/52 L 12/10/17 09:00 70 21 147/70 12/10/17 08:45 73 145/77 12/10/17 08:00 98.5 F 65 16 126/56 L 95 Intake and Output (Last 8hrs): Intake & Output 12/09/17 12/10/17 12/10/17 22:59 06:59 14:59 Intake Total 790 200 120 Balance 790 200 120 Intake: IV 300 100 Intake, Piggyback 100 100 Oral 390 120 Other: # Bowel Movements 2 - Physical Exam Head: Positive for: Atraumatic, Normocephalic Pupils: Positive for: PERRL Extroacular Muscles: Positive for: EOMI Mouth: Positive for: Moist Mucous Membranes Neck: Positive for: Normal Range of Motion Respiratory/Chest: Positive for: Clear to Auscultation, Good Air Exchange. Negative for: Respiratory Distress, Accessory Muscle Use, Decreased Breath Sounds Cardiovascular: Positive for: Regular Rate and Rhythm, Murmurs (+), Normal S1, S2 Abdomen: Negative for: Tenderness, Distention Upper Extremity: Positive for: Normal Inspection, Neurovascularly Intact, Other (left arm fistula). Negative for: Edema Lower Extremity: Positive for: Normal Inspection, Neurovascularly Intact. Negative for: Edema Neurological: Positive for: Speech Normal Skin: Positive for: Warm, Dry, Normal Color Psychiatric: Positive for: Alert, Oriented x 3, Normal Mood - Medications Active Medications: Active Medications Generic Name Dose Route Start Last Admin Trade Name Freq PRN Reason Stop Dose Admin Acetaminophen 650 mg 12/09/17 22:17 12/09/17 22:30 Tylenol 325mg Tab PO 650 mg Q6 PRN Administration Headache Amlodipine Besylate 10 mg 12/10/17 09:00 12/10/17 08:45 Norvasc PO 10 mg DAILY [facility] Administration Calcium Acetate 667 mg 12/08/17 13:00 12/10/17 08:44 Phoslo PO 667 mg TIDWM [facility] Administration Epoetin Triston 8,000 unit 12/11/17 10:09 Procrit IV MWF [facility] Levetiracetam 750 mg/ Sodium 107.5 mls @ 215 mls/hr 12/09/17 05:00 12/10/17 04:08 Chloride IVPB 215 mls/hr Q12@0500,1700 [facility] Administration Nicardipine HCl 20 mg in 200 mls @ 25 mls/hr 12/10/17 03:42 12/10/17 04:08 Cardene Iv Premix IV 12/10/17 11:41 2.5 mg/hr .Q8H ONE 25 mls/hr Protocol Administration 2.5 MG/HR Lorazepam 2 mg 12/08/17 12:37 Ativan IVP Q1 PRN Seizure activity Pantoprazole Sodium 40 mg 12/09/17 09:00 12/10/17 08:45 Protonix Ec Tab PO 40 mg DAILY [facility] Administration Propranolol HCl 10 mg 12/09/17 17:00 12/09/17 16:17 Inderal PO 10 mg BID [facility] Administration Sucralfate 1 gm 12/08/17 16:30 12/10/17 08:41 Carafate Tab PO 1 gm BIDAC [facility] Administration Valsartan 320 mg 12/09/17 09:00 12/10/17 08:42 Diovan PO 320 mg DAILY [facility] Administration - Patient Studies Lab Studies: Microbiology Studies 12/06/17 06:41 Blood Culture - Preliminary Blood-Venous NO GROWTH AFTER 4 DAYS 12/06/17 06:30 Blood Culture - Preliminary Blood-Venous NO GROWTH AFTER 4 DAYS Lab Studies 12/10/17 12/10/17 12/09/17 Range/Units 04:30 04:30 07:19 WBC 4.7 L (4.8-10.8) K/uL RBC 2.64 L (4.40-5.90) Mil/uL Hgb 8.0 L (12.0-18.0) g/dL Hct 24.1 L (35.0-51.0) % MCV 91.6 (80.0-94.0) fl MCH 30.5 (27.0-31.0) pg MCHC 33.3 (33.0-37.0) g/dL RDW 17.9 H (11.5-14.5) % Plt Count 82 L (130-400) K/uL Sodium 135 (132-148) mmol/l Potassium 3.5 L (3.6-5.0) MMOL/L Chloride 96 L (98-107) mmol/L Carbon Dioxide 30 (22-30) mmol/L Anion Gap 13 (10-20) BUN 21 H (9-20) mg/dl Creatinine 5.3 H (0.8-1.5) mg/dl Est GFR ( Amer) 13 Est GFR (Non-Af Amer) 11 Random Glucose 90 (75-110) mg/dL Calcium 8.4 (8.4-10.2) mg/dL Hep Bs Antigen (NEGATIVE) Hep Bs Antibody Positive (NEGATIVE) Hepatitis C Antibody (NEGATIVE) 12/09/17 Range/Units 07:19 WBC (4.8-10.8) K/uL RBC (4.40-5.90) Mil/uL Hgb (12.0-18.0) g/dL Hct (35.0-51.0) % MCV (80.0-94.0) fl MCH (27.0-31.0) pg MCHC (33.0-37.0) g/dL RDW (11.5-14.5) % Plt Count (130-400) K/uL Sodium (132-148) mmol/l Potassium (3.6-5.0) MMOL/L Chloride (98-107) mmol/L Carbon Dioxide (22-30) mmol/L Anion Gap (10-20) BUN (9-20) mg/dl Creatinine (0.8-1.5) mg/dl Est GFR ( Amer) Est GFR (Non-Af Amer) Random Glucose (75-110) mg/dL Calcium (8.4-10.2) mg/dL Hep Bs Antigen Negative (NEGATIVE) Hep Bs Antibody (NEGATIVE) Hepatitis C Antibody Negative (NEGATIVE) Laboratory Results - last 24 hr 12/09/17 12/09/17 12/10/17 07:19 07:19 04:30 WBC 4.7 L RBC 2.64 L Hgb 8.0 L Hct 24.1 L MCV 91.6 MCH 30.5 MCHC 33.3 RDW 17.9 H Plt Count 82 L Sodium Potassium Chloride Carbon Dioxide Anion Gap BUN Creatinine Est GFR ( Amer) Est GFR (Non-Af Amer) Random Glucose Calcium Hep Bs Antigen Negative Hep Bs Antibody Positive Hepatitis C Antibody Negative 12/10/17 04:30 WBC RBC Hgb Hct MCV MCH MCHC RDW Plt Count Sodium 135 Potassium 3.5 L Chloride 96 L Carbon Dioxide 30 Anion Gap 13 BUN 21 H Creatinine 5.3 H Est GFR ( Amer) 13 Est GFR (Non-Af Amer) 11 Random Glucose 90 Calcium 8.4 Hep Bs Antigen Hep Bs Antibody Hepatitis C Antibody Fingerstick Blood Sugar Results: 106 Critical Care Progress Note - Nutrition Nutrition: Nutrition Category Date Time Status Dysphagia/Modified Consistency Diet [DIET] Diets 12/09/17 Lunch Active Assessment/Plan - Assessment and Plan (Free Text) Assessment: 71 year old male with recent hospitalization due to UGI bleed 2 to esophageal varices with chronic subdural hematoma presented with headache admitted for SDH subsequently developed seizures. Started on Keppra that has been controlling his seizures. C/o L sided headache this morning, no changes in vision, no weakness of bilateral upper/lower extremities. Assessment/Plan: Neuro: Subdural hematoma with midline shift, seizures., Headache. SDH: repeat CT head. Seizures controlled since starting Keppra on 12/08/17 WIll continue with conservative management. Neurology/Neurosurgery are following. Daily Head CTs. Continue Keppra. PT/OT/Speech therapy Cardiovascular: HTN: Controlled on Cardene drip, start PO Diovan/Norvasc. Attempt to wean of cardene drip. Respiratory: unlabored breathing, 100% on RA GI: Recent UGI bleed due to esophageal varices, Liver Cirrhosis: LFTS WNL. Protonix, Sucralfate, and propranolol. Renal/: ESRD on HD: MWF. Nephrology is following. Heme: Pancytopenia, Elevated INR: Likely 2' to liver cirrhosis and renal disease. Hematology is following. Prophylaxis: GI: protonix, DVT: SCDS given coagulopathy/subdural hematoma, OOB encouraged Case discussed with Dr. Culver <Heath Culver - Last Filed: 12/10/17 13:40> CCU Subjective - Physician Review Subjective (Free Text): Attestation: Patient seen and examined at the bedside with Resident Dr. Caren Gutierrez; and I agree with her outline of plans and management documented above as discussed on AM rounds reflecting my review of all applicable clinical data, and participation in the care of the patient throughout the day in ICU; December 10, 2017. CCU Objective - Medications Active Medications: Active Medications Generic Name Dose Route Start Last Admin Trade Name Freq PRN Reason Stop Dose Admin Acetaminophen 650 mg 12/09/17 22:17 12/09/17 22:30 Tylenol 325mg Tab PO 650 mg Q6 PRN Administration Headache Amlodipine Besylate 10 mg 12/10/17 09:00 12/10/17 08:45 Norvasc PO 10 mg DAILY [facility] Administration Calcium Acetate 667 mg 12/08/17 13:00 12/10/17 12:35 Phoslo PO 667 mg TIDWM [facility] Administration Epoetin Triston 8,000 unit 12/11/17 10:09 Procrit IV MWF [facility] Levetiracetam 750 mg/ Sodium 107.5 mls @ 215 mls/hr 12/09/17 05:00 12/10/17 04:08 Chloride IVPB 215 mls/hr Q12@0500,1700 [facility] Administration Lorazepam 2 mg 12/08/17 12:37 Ativan IVP Q1 PRN Seizure activity Pantoprazole Sodium 40 mg 12/09/17 09:00 12/10/17 08:45 Protonix Ec Tab PO 40 mg DAILY [facility] Administration Propranolol HCl 10 mg 12/09/17 17:00 12/10/17 11:44 Inderal PO 10 mg BID [facility] Administration Sucralfate 1 gm 12/08/17 16:30 12/10/17 08:41 Carafate Tab PO 1 gm BIDAC [facility] Administration Valsartan 320 mg 12/09/17 09:00 12/10/17 08:42 Diovan PO 320 mg DAILY [facility] Administration - Patient Studies Lab Studies: Microbiology Studies 12/06/17 06:41 Blood Culture - Preliminary Blood-Venous NO GROWTH AFTER 4 DAYS 12/06/17 06:30 Blood Culture - Preliminary Blood-Venous NO GROWTH AFTER 4 DAYS Lab Studies 12/10/17 12/10/17 12/10/17 Range/Units 11:13 04:30 04:30 WBC 4.7 L (4.8-10.8) K/uL RBC 2.64 L (4.40-5.90) Mil/uL Hgb 8.0 L (12.0-18.0) g/dL Hct 24.1 L (35.0-51.0) % MCV 91.6 (80.0-94.0) fl MCH 30.5 (27.0-31.0) pg MCHC 33.3 (33.0-37.0) g/dL RDW 17.9 H (11.5-14.5) % Plt Count 82 L (130-400) K/uL Sodium 135 (132-148) mmol/l Potassium 3.5 L (3.6-5.0) MMOL/L Chloride 96 L (98-107) mmol/L Carbon Dioxide 30 (22-30) mmol/L Anion Gap 13 (10-20) BUN 21 H (9-20) mg/dl Creatinine 5.3 H (0.8-1.5) mg/dl Est GFR ( Amer) 13 Est GFR (Non-Af Amer) 11 POC Glucose (mg/dL) 120 H (65-110) mg/dL Random Glucose 90 (75-110) mg/dL Calcium 8.4 (8.4-10.2) mg/dL Hep Bs Antigen (NEGATIVE) Hep Bs Antibody (NEGATIVE) Hepatitis C Antibody (NEGATIVE) Crossmatch 12/09/17 12/09/17 12/06/17 Range/Units 07:19 07:19 01:45 WBC (4.8-10.8) K/uL RBC (4.40-5.90) Mil/uL Hgb (12.0-18.0) g/dL Hct (35.0-51.0) % MCV (80.0-94.0) fl MCH (27.0-31.0) pg MCHC (33.0-37.0) g/dL RDW (11.5-14.5) % Plt Count (130-400) K/uL Sodium (132-148) mmol/l Potassium (3.6-5.0) MMOL/L Chloride (98-107) mmol/L Carbon Dioxide (22-30) mmol/L Anion Gap (10-20) BUN (9-20) mg/dl Creatinine (0.8-1.5) mg/dl Est GFR ( Amer) Est GFR (Non-Af Amer) POC Glucose (mg/dL) (65-110) mg/dL Random Glucose (75-110) mg/dL Calcium (8.4-10.2) mg/dL Hep Bs Antigen Negative (NEGATIVE) Hep Bs Antibody Positive (NEGATIVE) Hepatitis C Antibody Negative (NEGATIVE) Crossmatch See Detail Laboratory Results - last 24 hr 12/06/17 12/09/17 12/09/17 01:45 07:19 07:19 WBC RBC Hgb Hct MCV MCH MCHC RDW Plt Count Sodium Potassium Chloride Carbon Dioxide Anion Gap BUN Creatinine Est GFR ( Amer) Est GFR (Non-Af Amer) POC Glucose (mg/dL) Random Glucose Calcium Hep Bs Antigen Negative Hep Bs Antibody Positive Hepatitis C Antibody Negative Crossmatch See Detail 12/10/17 12/10/17 12/10/17 04:30 04:30 11:13 WBC 4.7 L RBC 2.64 L Hgb 8.0 L Hct 24.1 L MCV 91.6 MCH 30.5 MCHC 33.3 RDW 17.9 H Plt Count 82 L Sodium 135 Potassium 3.5 L Chloride 96 L Carbon Dioxide 30 Anion Gap 13 BUN 21 H Creatinine 5.3 H Est GFR ( Amer) 13 Est GFR (Non-Af Amer) 11 POC Glucose (mg/dL) 120 H Random Glucose 90 Calcium 8.4 Hep Bs Antigen Hep Bs Antibody Hepatitis C Antibody Crossmatch
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
--- NOTE | 2017-12-10 13:18 | CT ---
PROCEDURE: CT HEAD WITHOUT CONTRAST. HISTORY: subdural hematoma COMPARISON: 12/09/2017 TECHNIQUE: Axial computed tomography images were obtained through the head/brain without intravenous contrast. Radiation dose: Total exam DLP = 866.42 mGy-cm. This CT exam was performed using one or more of the following dose reduction techniques: Automated exposure control, adjustment of the mA and/or kV according to patient size, and/or use of iterative reconstruction technique. FINDINGS: HEMORRHAGE: There is a chronic left frontal convexity subdural hygroma. In comparison to the prior examination, it is unchanged in size and extent. It measures approximately 1.9 cm at its greatest width. There is a tiny amount of acute hemorrhage in the dependent portion of this subdural collection, seen on series 4, image 41. This represents an acute on chronic subdural hemorrhage. There is no intracranial hemorrhage seen elsewhere. There is flattening of the left frontal gyri. BRAIN: No intracranial mass. Minimal diffuse age related atrophy. VENTRICLES: No ventriculomegaly. There is 3 mm midline shift towards the right unchanged from prior examination. CALVARIUM: Unremarkable. PARANASAL SINUSES: Unremarkable as visualized. No significant inflammatory changes. MASTOID AIR CELLS: Unremarkable as visualized. No inflammatory changes. OTHER FINDINGS: None. IMPRESSION: Acute on chronic left frontal subdural hygroma. Small amount of acute blood seen in the dependent aspect of this chronic frontal convexity subdural collection. Flattening of the left frontal gyri. 3 mm midline shift towards the right. No other acute abnormality is identified.
--- NOTE | 2017-12-10 16:56 | CP.PCM.PN ---
Subjective - Date & Time of Evaluation Date of Evaluation: 12/10/17 Time of Evaluation: 16:54 - Subjective Subjective: Follow up Nephrology Consultation Note Assessment: Stable SDH Hypertensive Chronic Kidney Disease (I12.0) End stage renal disease (N18.6) dependence on hemodialysis (Z99.2) (MWF) via AVF Anemia (D64.9), Hyperphosphatemia (E83.39), Secondary Hyperparathyroidism (E21.1 ), HTN (I12.0) thrombocytopenia Plan: Will plan for HD tomorror as ordered.Continue with Nephrovite 1 tab/day. PRBC as needed for anemia. On MABLE as epogen with HD, last Hb 8.3, increased to 8000 unit with HD Continue with phos binders, BP control with meds as ordered. Patient on RAAS corbin as diovan. off cardene drip. can add hydralazine if needed Glycemic control, Dialysis consistent diet Further work up/management as per primary team Dose meds/antibiotics (if needed) for ESRD status. Avoid fleets enema/magnesium based laxatives. Thanks for allowing me to participate in care of your patient. Will follow patient with you. Please call if any Qs. d/w ICU team Dr Hernesto Bain Office: [phone] Subjective: Noted events overnight. Patients feels okay. Denies chest pain, palpitation, shortness of breath, leg swelling. All other negative Physical Examination: General Appearance: Comfortable, in no acute respiratory distress, co-operative . Vitals reviewed and noted as below Head; Atraumatic, normocephalic ENT: no ulcers no thrush. Tongue is midline. Oropharynx: no rash or ulcers. EYES: Pupils are equal, round and reactive to light accommodation. Eye muscles and extraocular movement intact. Sclera is anicteric. Neck; supple no lymphadenopathy, no thyromegaly or bruit Lungs: Normal respiratory rate/effort. Breath sounds bilateral equal and clear Heart: Normal rate. s1s2 normal. No rub or gallop. Extremities: no edema. No varicose veins Neurological: Patient is alert, awake and oriented to person, place and time. No focal deficit. Strength bilateral appropriate and equal Skin: Warm and dry. Normal turgor. No rash. Palpitation: Normal elasticity for age Abdomen: Abdomen is soft. Bowel sounds +. There is no abdominal tenderness, no guarding/rigidity or organomegaly Psych: limited insight and normal affect/mood MSK: no joint tenderness or swelling. Digits and nails normal, no deformity : kidney or bladder not palpable Access: AVF Labs/imaging reviewed. Past medical history, past surgical history, family history, social history, allergy reviewed and noted as below Family Hx: no hx of CKD. Non contributory Objective - Vital Signs/Intake and Output Vital Signs (last 24 hours): Temp Pulse Resp BP Pulse Ox 98.4 F 65 20 142/68 99 12/10/17 16:00 12/10/17 16:00 12/10/17 16:00 12/10/17 16:00 12/10/17 16:00 Intake and Output: 12/10/17 12/10/17 06:59 18:59 Intake Total 300 240 Output Total 0 Balance 300 240 - Medications Medications: Current Medications Acetaminophen (Tylenol 325mg Tab) 650 mg PO Q6 PRN PRN Reason: Headache Last Admin: 12/09/17 22:30 Dose: 650 mg Amlodipine Besylate (Norvasc) 10 mg PO DAILY [facility] Last Admin: 12/10/17 08:45 Dose: 10 mg Calcium Acetate (Phoslo) 667 mg PO TIDWM [facility] Last Admin: 12/10/17 12:35 Dose: 667 mg Epoetin Triston (Procrit) 8,000 unit IV MWF [facility] Levetiracetam 750 mg/ Sodium (Chloride) 107.5 mls @ 215 mls/hr IVPB Q12@0500, 1700 [facility] Last Admin: 12/10/17 04:08 Dose: 215 mls/hr Lorazepam (Ativan) 2 mg IVP Q1 PRN PRN Reason: Seizure activity Pantoprazole Sodium (Protonix Ec Tab) 40 mg PO DAILY [facility] Last Admin: 12/10/17 08:45 Dose: 40 mg Propranolol HCl (Inderal) 10 mg PO BID [facility] Last Admin: 12/10/17 11:44 Dose: 10 mg Sucralfate (Carafate Tab) 1 gm PO BIDAC [facility] Last Admin: 12/10/17 16:23 Dose: 1 gm Valsartan (Diovan) 320 mg PO DAILY [facility] Last Admin: 12/10/17 08:42 Dose: 320 mg - Labs Labs: 12/10/17 04:30 12/10/17 04:30 PT 15.7 Seconds (9.8-13.1) H 12/09/17 07:16 INR 1.4 (0.9-1.2) H 12/09/17 07:16 APTT 27.7 Seconds (25.6-37.1) 12/09/17 07:16
--- NOTE | 2017-12-10 19:58 | CP.PCM.PN ---
Subjective - Date & Time of Evaluation Date of Evaluation: 12/10/17 Time of Evaluation: 11:00 - Subjective Subjective: More alert, seen eating breakfast with family. Objective - Vital Signs/Intake and Output Vital Signs (last 24 hours): Temp Pulse Resp BP Pulse Ox 98.4 F 69 27 H 170/79 H 99 12/10/17 16:00 12/10/17 18:02 12/10/17 18:00 12/10/17 18:02 12/10/17 18:00 Intake and Output: 12/10/17 12/11/17 18:59 06:59 Intake Total 960 Output Total 0 Balance 960 - Medications Medications: Current Medications Acetaminophen (Tylenol 325mg Tab) 650 mg PO Q6 PRN PRN Reason: Headache Last Admin: 12/09/17 22:30 Dose: 650 mg Amlodipine Besylate (Norvasc) 10 mg PO DAILY [facility] Last Admin: 12/10/17 08:45 Dose: 10 mg Calcium Acetate (Phoslo) 667 mg PO TIDWM [facility] Last Admin: 12/10/17 17:30 Dose: 667 mg Epoetin Triston (Procrit) 8,000 unit IV MWF [facility] Hydralazine HCl (Apresoline) 20 mg IV Q6 PRN PRN Reason: Systolic Blood Pressure Levetiracetam 750 mg/ Sodium (Chloride) 107.5 mls @ 215 mls/hr IVPB Q12@0500, 1700 [facility] Last Admin: 12/10/17 17:07 Dose: 215 mls/hr Lorazepam (Ativan) 2 mg IVP Q1 PRN PRN Reason: Seizure activity Pantoprazole Sodium (Protonix Ec Tab) 40 mg PO DAILY [facility] Last Admin: 12/10/17 08:45 Dose: 40 mg Propranolol HCl (Inderal) 10 mg PO Q6 [facility] Sucralfate (Carafate Tab) 1 gm PO BIDAC [facility] Last Admin: 12/10/17 16:23 Dose: 1 gm Valsartan (Diovan) 320 mg PO DAILY [facility] Last Admin: 12/10/17 08:42 Dose: 320 mg Vitamin B Complex/Vit C/Folic Acid (Nephro-Malachi) 1 tab PO DAILY [facility] - Labs Labs: 12/10/17 04:30 12/10/17 04:30 PT 15.7 Seconds (9.8-13.1) H 12/09/17 07:16 INR 1.4 (0.9-1.2) H 12/09/17 07:16 APTT 27.7 Seconds (25.6-37.1) 12/09/17 07:16 - Head Exam Head Exam: ATRAUMATIC - Eye Exam Eye Exam: Normal appearance - ENT Exam ENT Exam: Mucous Membranes Dry - Respiratory Exam Respiratory Exam: NORMAL BREATHING PATTERN - Cardiovascular Exam Cardiovascular Exam: +S1, +S2 - GI/Abdominal Exam GI & Abdominal Exam: Normal Bowel Sounds Assessment and Plan (1) Coagulopathy Assessment & Plan: liver disease s/p ffp Status: Acute (2) Thrombocytopenia Assessment & Plan: liver disease, splenic sequestration, uremic plt dysfunction s/p plt transfusion Status: Acute (3) Anemia Assessment & Plan: chronic disease likely occult GI blood loss from pHTN Status: Acute
[2017-12-11 05:25] LABS: HEMOGLOBIN 8.4 g/dL (12.0-18.0); MEAN CELL VOLUME 91.2 fl (80.0-94.0); MEAN CORPUSCULAR HEMOGLOBIN 30.1 pg (27.0-31.0); RBC 2.77 Mil/uL (4.40-5.90); RED CELL DISTRIBUTION WIDTH 18.1 % (11.5-14.5); WHITE BLOOD COUNT 4.2 K/uL (4.8-10.8)
[2017-12-11 05:47] LABS: CALCIUM 8.6 mg/dL (8.4-10.2)
--- NOTE | 2017-12-11 09:06 | CP.PCM.PN ---
Subjective - Date & Time of Evaluation Date of Evaluation: 12/11/17 Time of Evaluation: 09:04 - Subjective Subjective: Follow up Nephrology Consultation Note Assessment: Critical SDH Hypertensive Chronic Kidney Disease (I12.0) End stage renal disease (N18.6) dependence on hemodialysis (Z99.2) (MWF) via AVF Anemia (D64.9), Hyperphosphatemia (E83.39), Secondary Hyperparathyroidism (E21.1 ), HTN (I12.0) thrombocytopenia Altered mental status Plan: seen on HD tolerating tx pt is altered - not at baseline which is a+ox3 discussed w/ sign letterer, f/u repeat CT head. Still concerned about waxing / waning mental status PRBC as needed for anemia. On MABLE as epogen with HD Continue with phos binders, BP control with meds as ordered. Patient on RAAS corbin as diovan and on norvasc. Subjective: seen on HD, confused Physical Examination: General Appearance: Comfortable, in no acute respiratory distress, co-operative . Vitals reviewed and noted as below Head; Atraumatic, normocephalic ENT: no ulcers no thrush. Tongue is midline. Oropharynx: no rash or ulcers. EYES: Pupils are equal, round and reactive to light accommodation. Eye muscles and extraocular movement intact. Sclera is anicteric. Neck; supple no lymphadenopathy, no thyromegaly or bruit Lungs: Normal respiratory rate/effort. Breath sounds bilateral equal and clear Heart: Normal rate. s1s2 normal. No rub or gallop. Extremities: no edema. No varicose veins Neurological: Patient is alert, awake and oriented x1 Skin: Warm and dry. Normal turgor. No rash. Palpitation: Normal elasticity for age Abdomen: Abdomen is soft. Bowel sounds +. There is no abdominal tenderness, no guarding/rigidity or organomegaly Psych: limited insight and normal affect/mood MSK: no joint tenderness or swelling. Digits and nails normal, no deformity : kidney or bladder not palpable Access: AVF Objective - Vital Signs/Intake and Output Vital Signs (last 24 hours): Temp Pulse Resp BP Pulse Ox 98.2 F 74 20 145/77 90 L 12/11/17 08:00 12/11/17 08:00 12/11/17 08:00 12/11/17 08:00 12/11/17 08:00 Intake and Output: 12/11/17 12/11/17 06:59 18:59 Intake Total 255 Balance 255 - Medications Medications: Current Medications Acetaminophen (Tylenol 325mg Tab) 650 mg PO Q6 PRN PRN Reason: Headache Last Admin: 12/10/17 23:34 Dose: 650 mg Amlodipine Besylate (Norvasc) 10 mg PO DAILY [facility] Last Admin: 12/10/17 08:45 Dose: 10 mg Calcium Acetate (Phoslo) 667 mg PO TIDWM [facility] Last Admin: 12/11/17 08:33 Dose: 667 mg Epoetin Triston (Procrit) 8,000 unit IV MWF [facility] Hydralazine HCl (Apresoline) 20 mg IV Q6 PRN PRN Reason: Systolic Blood Pressure Hydralazine HCl (Apresoline) 10 mg PO TID [facility] Levetiracetam 750 mg/ Sodium (Chloride) 107.5 mls @ 215 mls/hr IVPB Q12@0500, 1700 [facility] Last Admin: 12/11/17 04:06 Dose: 215 mls/hr Lorazepam (Ativan) 2 mg IVP Q1 PRN PRN Reason: Seizure activity Pantoprazole Sodium (Protonix Ec Tab) 40 mg PO DAILY [facility] Last Admin: 12/10/17 08:45 Dose: 40 mg Propranolol HCl (Inderal) 10 mg PO Q6 [facility] Last Admin: 12/11/17 04:06 Dose: 10 mg Sucralfate (Carafate Tab) 1 gm PO BIDAC [facility] Last Admin: 12/11/17 08:30 Dose: 1 gm Valsartan (Diovan) 320 mg PO DAILY [facility] Last Admin: 12/10/17 08:42 Dose: 320 mg Vitamin B Complex/Vit C/Folic Acid (Nephro-Malachi) 1 tab PO DAILY [facility] - Labs Labs: 12/11/17 04:35 12/11/17 04:35 PT 15.7 Seconds (9.8-13.1) H 12/09/17 07:16 INR 1.4 (0.9-1.2) H 12/09/17 07:16 APTT 27.7 Seconds (25.6-37.1) 12/09/17 07:16
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
[2017-12-11] MEDS: Epoetin Alfa 20000 UNIT/ML Inj IV SCH (10:31)
--- NOTE | 2017-12-11 10:44 | CP.PCM.PN ---
Subjective - Date & Time of Evaluation Date of Evaluation: 12/11/17 Objective - Vital Signs/Intake and Output Vital Signs (last 24 hours): Temp Pulse Resp BP Pulse Ox 98.2 F 73 26 H 157/73 H 100 12/11/17 08:00 12/11/17 10:00 12/11/17 10:00 12/11/17 10:00 12/11/17 10:00 Intake and Output: 12/11/17 12/11/17 06:59 18:59 Intake Total 255 120 Balance 255 120 - Medications Medications: Current Medications Acetaminophen (Tylenol 325mg Tab) 650 mg PO Q6 PRN PRN Reason: Headache Last Admin: 12/11/17 10:15 Dose: 650 mg Amlodipine Besylate (Norvasc) 10 mg PO DAILY [facility] Last Admin: 12/10/17 08:45 Dose: 10 mg Calcium Acetate (Phoslo) 667 mg PO TIDWM [facility] Last Admin: 12/11/17 08:33 Dose: 667 mg Epoetin Triston (Procrit) 8,000 unit IV MWF [facility] Last Admin: 12/11/17 10:31 Dose: 8,000 unit Hydralazine HCl (Apresoline) 20 mg IV Q6 PRN PRN Reason: Systolic Blood Pressure Hydralazine HCl (Apresoline) 10 mg PO TID [facility] Last Admin: 12/11/17 09:54 Dose: 10 mg Levetiracetam 750 mg/ Sodium (Chloride) 107.5 mls @ 215 mls/hr IVPB Q12@0500, 1700 [facility] Last Admin: 12/11/17 04:06 Dose: 215 mls/hr Lorazepam (Ativan) 2 mg IVP Q1 PRN PRN Reason: Seizure activity Pantoprazole Sodium (Protonix Ec Tab) 40 mg PO DAILY [facility] Last Admin: 12/10/17 08:45 Dose: 40 mg Propranolol HCl (Inderal) 10 mg PO Q6 [facility] Last Admin: 12/11/17 09:44 Dose: 10 mg Sucralfate (Carafate Tab) 1 gm PO BIDAC [facility] Last Admin: 12/11/17 08:30 Dose: 1 gm Valsartan (Diovan) 320 mg PO DAILY [facility] Last Admin: 12/10/17 08:42 Dose: 320 mg Vitamin B Complex/Vit C/Folic Acid (Nephro-Malachi) 1 tab PO DAILY [facility] - Labs Labs: 12/11/17 04:35 12/11/17 04:35 PT 15.7 Seconds (9.8-13.1) H 12/09/17 07:16 INR 1.4 (0.9-1.2) H 12/09/17 07:16 APTT 27.7 Seconds (25.6-37.1) 12/09/17 07:16 Assessment and Plan (1) Coagulopathy Status: Acute (2) Thrombocytopenia Status: Acute (3) Anemia Status: Acute
--- NOTE | 2017-12-11 10:55 | CP.PCM.PN ---
Subjective - Date & Time of Evaluation Date of Evaluation: 12/11/17 Time of Evaluation: 10:53 - Subjective Subjective: Mr. Melvin was seen and examined at the bedside. He is alert, oriented and able to follow simple commands. He claims of experiencing very minimal headache in his left frontal area, denies any blurred vision, nausea. He is more responsive in comparison from yesterday. He is currently receiving dialysis. There was no untoward events overnight. Objective - Vital Signs/Intake and Output Vital Signs (last 24 hours): Temp Pulse Resp BP Pulse Ox 98.2 F 73 26 H 157/73 H 100 12/11/17 08:00 12/11/17 10:00 12/11/17 10:00 12/11/17 10:00 12/11/17 10:00 Intake and Output: 12/11/17 12/11/17 06:59 18:59 Intake Total 255 120 Balance 255 120 - Medications Medications: Current Medications Acetaminophen (Tylenol 325mg Tab) 650 mg PO Q6 PRN PRN Reason: Headache Last Admin: 12/11/17 10:15 Dose: 650 mg Amlodipine Besylate (Norvasc) 10 mg PO DAILY [facility] Last Admin: 12/10/17 08:45 Dose: 10 mg Calcium Acetate (Phoslo) 667 mg PO TIDWM [facility] Last Admin: 12/11/17 08:33 Dose: 667 mg Epoetin Triston (Procrit) 8,000 unit IV MWF [facility] Last Admin: 12/11/17 10:31 Dose: 8,000 unit Hydralazine HCl (Apresoline) 20 mg IV Q6 PRN PRN Reason: Systolic Blood Pressure Hydralazine HCl (Apresoline) 10 mg PO TID [facility] Last Admin: 12/11/17 09:54 Dose: 10 mg Levetiracetam 750 mg/ Sodium (Chloride) 107.5 mls @ 215 mls/hr IVPB Q12@0500, 1700 [facility] Last Admin: 12/11/17 04:06 Dose: 215 mls/hr Lorazepam (Ativan) 2 mg IVP Q1 PRN PRN Reason: Seizure activity Pantoprazole Sodium (Protonix Ec Tab) 40 mg PO DAILY [facility] Last Admin: 12/10/17 08:45 Dose: 40 mg Propranolol HCl (Inderal) 10 mg PO Q6 [facility] Last Admin: 12/11/17 09:44 Dose: 10 mg Sucralfate (Carafate Tab) 1 gm PO BIDAC [facility] Last Admin: 12/11/17 08:30 Dose: 1 gm Valsartan (Diovan) 320 mg PO DAILY [facility] Last Admin: 12/10/17 08:42 Dose: 320 mg Vitamin B Complex/Vit C/Folic Acid (Nephro-Malachi) 1 tab PO DAILY [facility] - Labs Labs: 12/11/17 04:35 12/11/17 04:35 PT 15.7 Seconds (9.8-13.1) H 12/09/17 07:16 INR 1.4 (0.9-1.2) H 12/09/17 07:16 APTT 27.7 Seconds (25.6-37.1) 12/09/17 07:16 - Constitutional Appears: No Acute Distress - Head Exam Head Exam: NORMAL INSPECTION - Neurological Exam Neurological Exam: Alert, Awake Neuro motor strength exam: Left Upper Extremity: 0 (unable to move due to dialysis access and is connected to the machine), Right Upper Extremity: 4, Left Lower Extremity: 4, Right Lower Extremity: 4 Additional comments: Neurological improved from previous examination. He is alert and conversant. Assessment and Plan (1) Seizure Assessment & Plan: Case discussed with Dr. Lau, continue all current medical regimen. CT of the head without contrast yesterday remains stable. Status: Acute
--- NOTE | 2017-12-11 10:57 | CP.PCM.PN ---
Subjective - Date & Time of Evaluation Date of Evaluation: 12/11/17 Time of Evaluation: 10:15 - Subjective Subjective: Confused today, CT head after dialysis Objective - Vital Signs/Intake and Output Vital Signs (last 24 hours): Temp Pulse Resp BP Pulse Ox 98.2 F 73 26 H 157/73 H 100 12/11/17 08:00 12/11/17 10:00 12/11/17 10:00 12/11/17 10:00 12/11/17 10:00 Intake and Output: 12/11/17 12/11/17 06:59 18:59 Intake Total 255 120 Balance 255 120 - Medications Medications: Current Medications Acetaminophen (Tylenol 325mg Tab) 650 mg PO Q6 PRN PRN Reason: Headache Last Admin: 12/11/17 10:15 Dose: 650 mg Amlodipine Besylate (Norvasc) 10 mg PO DAILY [facility] Last Admin: 12/10/17 08:45 Dose: 10 mg Calcium Acetate (Phoslo) 667 mg PO TIDWM [facility] Last Admin: 12/11/17 08:33 Dose: 667 mg Epoetin Triston (Procrit) 8,000 unit IV MWF [facility] Last Admin: 12/11/17 10:31 Dose: 8,000 unit Hydralazine HCl (Apresoline) 20 mg IV Q6 PRN PRN Reason: Systolic Blood Pressure Hydralazine HCl (Apresoline) 10 mg PO TID [facility] Last Admin: 12/11/17 09:54 Dose: 10 mg Levetiracetam 750 mg/ Sodium (Chloride) 107.5 mls @ 215 mls/hr IVPB Q12@0500, 1700 [facility] Last Admin: 12/11/17 04:06 Dose: 215 mls/hr Lorazepam (Ativan) 2 mg IVP Q1 PRN PRN Reason: Seizure activity Pantoprazole Sodium (Protonix Ec Tab) 40 mg PO DAILY [facility] Last Admin: 12/10/17 08:45 Dose: 40 mg Propranolol HCl (Inderal) 10 mg PO Q6 [facility] Last Admin: 12/11/17 09:44 Dose: 10 mg Sucralfate (Carafate Tab) 1 gm PO BIDAC [facility] Last Admin: 12/11/17 08:30 Dose: 1 gm Valsartan (Diovan) 320 mg PO DAILY [facility] Last Admin: 12/10/17 08:42 Dose: 320 mg Vitamin B Complex/Vit C/Folic Acid (Nephro-Malachi) 1 tab PO DAILY [facility] - Labs Labs: 12/11/17 04:35 12/11/17 04:35 PT 15.7 Seconds (9.8-13.1) H 12/09/17 07:16 INR 1.4 (0.9-1.2) H 12/09/17 07:16 APTT 27.7 Seconds (25.6-37.1) 12/09/17 07:16 - Head Exam Head Exam: ATRAUMATIC - Eye Exam Eye Exam: Normal appearance - ENT Exam ENT Exam: Mucous Membranes Dry - Respiratory Exam Respiratory Exam: NORMAL BREATHING PATTERN - Cardiovascular Exam Cardiovascular Exam: +S1, +S2 - GI/Abdominal Exam GI & Abdominal Exam: Normal Bowel Sounds Assessment and Plan (1) Coagulopathy Assessment & Plan: liver disease s./p FFP Status: Acute (2) Thrombocytopenia Assessment & Plan: liver disease, splenomegaly platelet dysfunction from uremia Status: Acute (3) Anemia Assessment & Plan: chronic disease likely intermittent GI blood loss from pHTN Status: Acute
--- NOTE | 2017-12-11 11:01 | CP.CCUPN ---
<Nani Gutierrez - Last Filed: 12/11/17 10:51> CCU Subjective - Physician Review Subjective (Free Text): Patient awake and alert this morning. Feeling a little better. Receiving dialysis. Complaining of headache, diarrhea. No changes in vision, no numbness, tingling weakness. Daughter is bedside, endorses he appears slightly confused to her. Case discussed with Dr. Yoly Caldwell, patient is not at baseline mental status. Very functional, AAOx3. = CCU Objective - Vital Signs / Intake & Output Vital Signs (Last 4 hours): Vital Signs Temp Pulse Resp BP Pulse Ox 12/11/17 10:00 73 26 H 157/73 H 100 12/11/17 09:54 66 168/76 H 12/11/17 09:44 77 168/76 H 12/11/17 08:00 98.2 F 74 20 145/77 90 L Intake and Output (Last 8hrs): Intake & Output 12/10/17 12/11/17 12/11/17 22:59 06:59 14:59 Intake Total 790 185 120 Output Total 0 Balance 790 185 120 Intake: IV 520 35 Intake, Piggyback 100 100 Oral 170 120 Tube Feeding 50 Output: Emesis 0 Other: # Voids Urine, Voided 1 # Bowel Movements 1 1 1 - Physical Exam Head: Positive for: Atraumatic, Normocephalic Pupils: Positive for: PERRL Extroacular Muscles: Positive for: EOMI Mouth: Positive for: Moist Mucous Membranes Neck: Positive for: Normal Range of Motion Respiratory/Chest: Positive for: Clear to Auscultation, Good Air Exchange. Negative for: Respiratory Distress, Accessory Muscle Use, Decreased Breath Sounds Cardiovascular: Positive for: Regular Rate and Rhythm, Murmurs (+), Normal S1, S2 Abdomen: Negative for: Tenderness, Distention Upper Extremity: Positive for: Normal Inspection, Neurovascularly Intact, Other (left arm fistula). Negative for: Edema Lower Extremity: Positive for: Normal Inspection, Neurovascularly Intact. Negative for: Edema Neurological: Positive for: GCS=15, Speech Normal, Motor Func Grossly Intact Skin: Positive for: Warm, Dry, Normal Color Psychiatric: Positive for: Alert, Oriented x 3, Normal Mood - Medications Active Medications: Active Medications Generic Name Dose Route Start Last Admin Trade Name Freq PRN Reason Stop Dose Admin Acetaminophen 650 mg 12/09/17 22:17 12/11/17 10:15 Tylenol 325mg Tab PO 650 mg Q6 PRN Administration Headache Amlodipine Besylate 10 mg 12/10/17 09:00 12/10/17 08:45 Norvasc PO 10 mg DAILY [facility] Administration Calcium Acetate 667 mg 12/08/17 13:00 12/11/17 08:33 Phoslo PO 667 mg TIDWM [facility] Administration Epoetin Triston 8,000 unit 12/11/17 10:09 12/11/17 10:31 Procrit IV 8,000 unit MWF [facility] Administration Hydralazine HCl 20 mg 12/10/17 17:53 Apresoline IV Q6 PRN Systolic Blood Pressure Hydralazine HCl 10 mg 12/11/17 09:00 12/11/17 09:54 Apresoline PO 10 mg TID [facility] Administration Levetiracetam 750 mg/ Sodium 107.5 mls @ 215 mls/hr 12/09/17 05:00 12/11/17 04:06 Chloride IVPB 215 mls/hr Q12@0500,1700 [facility] Administration Lorazepam 2 mg 12/08/17 12:37 Ativan IVP Q1 PRN Seizure activity Pantoprazole Sodium 40 mg 12/09/17 09:00 12/10/17 08:45 Protonix Ec Tab PO 40 mg DAILY [facility] Administration Propranolol HCl 10 mg 12/10/17 22:00 12/11/17 09:44 Inderal PO 10 mg Q6 [facility] Administration Sucralfate 1 gm 12/08/17 16:30 12/11/17 08:30 Carafate Tab PO 1 gm BIDAC [facility] Administration Valsartan 320 mg 12/09/17 09:00 12/10/17 08:42 Diovan PO 320 mg DAILY [facility] Administration Vitamin B Complex/Vit C/Folic Acid 1 tab 12/11/17 09:00 Nephro-Malachi PO DAILY [facility] - Patient Studies Lab Studies: Microbiology Studies 12/06/17 06:41 Blood Culture - Final Blood-Venous NO GROWTH AFTER 5 DAYS Gram Stain - Final TEST NOT PERFORMED 12/06/17 06:30 Blood Culture - Final Blood-Venous NO GROWTH AFTER 5 DAYS Gram Stain - Final TEST NOT PERFORMED Lab Studies 12/11/17 12/11/17 12/10/17 Range/Units 04:35 04:35 11:13 WBC 4.2 L (4.8-10.8) K/uL RBC 2.77 L (4.40-5.90) Mil/uL Hgb 8.4 L (12.0-18.0) g/dL Hct 25.3 L (35.0-51.0) % MCV 91.2 (80.0-94.0) fl MCH 30.1 (27.0-31.0) pg MCHC 33.0 (33.0-37.0) g/dL RDW 18.1 H (11.5-14.5) % Plt Count 98 L (130-400) K/uL Sodium 133 (132-148) mmol/l Potassium 3.9 (3.6-5.0) MMOL/L Chloride 96 L (98-107) mmol/L Carbon Dioxide 25 (22-30) mmol/L Anion Gap 16 (10-20) BUN 32 H (9-20) mg/dl Creatinine 7.1 H (0.8-1.5) mg/dl Est GFR ( Amer) 9 Est GFR (Non-Af Amer) 8 POC Glucose (mg/dL) 120 H (65-110) mg/dL Random Glucose 88 (75-110) mg/dL Calcium 8.6 (8.4-10.2) mg/dL Crossmatch 12/06/17 Range/Units 01:45 WBC (4.8-10.8) K/uL RBC (4.40-5.90) Mil/uL Hgb (12.0-18.0) g/dL Hct (35.0-51.0) % MCV (80.0-94.0) fl MCH (27.0-31.0) pg MCHC (33.0-37.0) g/dL RDW (11.5-14.5) % Plt Count (130-400) K/uL Sodium (132-148) mmol/l Potassium (3.6-5.0) MMOL/L Chloride (98-107) mmol/L Carbon Dioxide (22-30) mmol/L Anion Gap (10-20) BUN (9-20) mg/dl Creatinine (0.8-1.5) mg/dl Est GFR ( Amer) Est GFR (Non-Af Amer) POC Glucose (mg/dL) (65-110) mg/dL Random Glucose (75-110) mg/dL Calcium (8.4-10.2) mg/dL Crossmatch See Detail Laboratory Results - last 24 hr 12/06/17 12/10/17 12/11/17 01:45 11:13 04:35 WBC 4.2 L RBC 2.77 L Hgb 8.4 L Hct 25.3 L MCV 91.2 MCH 30.1 MCHC 33.0 RDW 18.1 H Plt Count 98 L Sodium Potassium Chloride Carbon Dioxide Anion Gap BUN Creatinine Est GFR ( Amer) Est GFR (Non-Af Amer) POC Glucose (mg/dL) 120 H Random Glucose Calcium Crossmatch See Detail 12/11/17 04:35 WBC RBC Hgb Hct MCV MCH MCHC RDW Plt Count Sodium 133 Potassium 3.9 Chloride 96 L Carbon Dioxide 25 Anion Gap 16 BUN 32 H Creatinine 7.1 H Est GFR ( Amer) 9 Est GFR (Non-Af Amer) 8 POC Glucose (mg/dL) Random Glucose 88 Calcium 8.6 Crossmatch Fingerstick Blood Sugar Results: 106 Critical Care Progress Note - Nutrition Nutrition: Nutrition Category Date Time Status Dysphagia/Modified Consistency Diet [DIET] Diets 12/10/17 Dinner Active Assessment/Plan - Assessment and Plan (Free Text) Assessment: 71 year old male with recent hospitalization due to UGI bleed 2 to esophageal varices with chronic subdural hematoma presented with headache admitted for SDH subsequently developed seizures. Started on Keppra that has been controlling his seizures. Daily head CTs. CT head will be done after dialysis. Will follow up report. Clinically improved from yesterday. Assessment/Plan: Neuro: Subdural hematoma with midline shift, seizures., Headache. SDH: repeat CT head. Seizures controlled since starting Keppra on 12/08/17 WIll continue with conservative management. Tylenol PRN headaches. Neurology/Neurosurgery are following. Daily Head CTs. Continue Keppra. PT/OT/Speech therapy Cardiovascular: HTN: PO Diovan/Norvasc, started on Hydralazine in addition to increase in propranolol. Respiratory: unlabored breathing, 100% on RA GI: Recent UGI bleed due to esophageal varices, Liver Cirrhosis: LFTS WNL. Protonix, Sucralfate, and propranolol. Renal/: ESRD on HD, MWF. Dialysis this morning. Nephrology is following. Heme: Pancytopenia, Elevated INR: Likely 2' to liver cirrhosis and renal disease. Platelets improving, now 98. INR slightly improved now 1.4. Hematology is following. Prophylaxis: GI: protonix DVT: SCDS given coagulopathy/subdural hematoma PT/IT: OOB encouraged with assistance. Case discussed with Dr. Culver <Heath Culver - Last Filed: 12/11/17 15:43> CCU Subjective - Physician Review Subjective (Free Text): Attestation: Patient seen and examined at the bedside with Resident Dr. Caren Gutierrez; and I agree with her outline of plans and management documented above as discussed on AM rounds reflecting my review of all applicable clinical data, and participation in the care of the patient throughout the day in ICU; December 11, 2017. CCU Objective - Vital Signs / Intake & Output Vital Signs (Last 4 hours): Vital Signs Temp Pulse Resp BP Pulse Ox 12/11/17 14:00 74 22 148/66 99 12/11/17 13:24 76 148/75 12/11/17 12:00 98.4 F 68 15 141/69 98 Intake and Output (Last 8hrs): Intake & Output 12/11/17 12/11/17 12/11/17 06:59 14:59 22:59 Intake Total 185 240 Balance 185 240 Intake: IV 35 Intake, Piggyback 100 Oral 240 Tube Feeding 50 Other: # Bowel Movements 1 1
[2017-12-11] MEDS: Multivitamin Vitamin B Complex (Nephro-Vite) Tab PO SCH (12:12)
[2017-12-11] MEDS: Pantoprazole 40 mg EC Tab PO SCH (12:12)
--- NOTE | 2017-12-11 13:47 | CT ---
PROCEDURE: CT scan brain dated 12/11/2017 HISTORY: Evaluate subdural hematoma COMPARISON: Comparison made with prior CT scan brain 12/10/2017 TECHNIQUE: Contiguous helical/transaxial l computed tomography images were obtained through the head/brain without intravenous contrast. Radiation dose: Total exam DLP = 732.50 mGy-cm. This CT exam was performed using one or more of the following dose reduction techniques: Automated exposure control, adjustment of the mA and/or kV according to patient size, and/or use of iterative reconstruction technique. . FINDINGS: HEMORRHAGE: Current study re- demonstrates a medium-sized left-sided subdural hematoma which exerts subjacent mass effect and compresses cortex of the left frontal lobe. There is also mild compressive effects on the left lateral ventricle particularly the left frontal horn which is slightly displaced to the left side. There is also some minor at anterior midline shift from left to right estimated at approximately 4.5 mm. No new hemorrhages. BRAIN: Suspect minimal chronic periventricular white matter ischemic changes. Ventricular and sulcal size are within range of normal for this patient's stated age. There are vascular calcifications both carotid siphons. VENTRICLES: No obstructive hydrocephalus CALVARIUM: No acute calvarial fractures PARANASAL SINUSES: Unremarkable as visualized. No significant inflammatory changes. MASTOID AIR CELLS: Unremarkable as visualized. No inflammatory changes. OTHER FINDINGS: None. IMPRESSION: Re- demonstrated is medium size left-sided frontal subdural hematoma which exerts moderate subjacent mass effect a compressing the cortex left frontal lobe and left lateral ventricle with mild [id number] midline shift. No new hemorrhages. No obstructive hydrocephalus. Suspect minimal chronic periventricular white matter ischemic changes.
[2017-12-12 06:27] LABS: HEMOGLOBIN 8.9 g/dL (12.0-18.0); MEAN CELL VOLUME 91.1 fl (80.0-94.0); MEAN CORPUSCULAR HEMOGLOBIN 30.4 pg (27.0-31.0); MEAN CORPUSCULAR HGB CONC 33.3 g/dL (33.0-37.0); RBC 2.92 Mil/uL (4.40-5.90); RED CELL DISTRIBUTION WIDTH 18.2 % (11.5-14.5); WHITE BLOOD COUNT 3.7 K/uL (4.8-10.8)
[2017-12-12 06:55] LABS: CALCIUM 8.4 mg/dL (8.4-10.2)
[2017-12-12 07:48] LABS: INR 1.4 (0.9-1.2); PARTIAL THROMBOPLASTIN TIME 27.5 Seconds (25.6-37.1); PROTHROMBIN TIME 15.1 Seconds (9.8-13.1)
[2017-12-12] MEDS: Multivitamin Vitamin B Complex (Nephro-Vite) Tab PO SCH (08:39)
[2017-12-12] MEDS: Pantoprazole 40 mg EC Tab PO SCH (08:39)
--- NOTE | 2017-12-12 08:52 | CP.CCUPN ---
CCU Subjective - Physician Review Events Since Last Encounter (Free Text): 12/12/17 08:48 Patient awake, no distress, no fever, no vomiting, events reviewed CCU Objective - Vital Signs / Intake & Output Vital Signs (Last 4 hours): Vital Signs Temp Pulse Resp BP Pulse Ox 12/12/17 08:44 100.8 F H 12/12/17 08:40 76 161/67 H 12/12/17 08:39 76 161/67 H 12/12/17 08:00 100.8 F H 77 22 155/76 H 99 12/12/17 06:00 98.9 F 73 18 151/76 H 100 Intake and Output (Last 8hrs): Intake & Output 12/11/17 12/12/17 12/12/17 22:59 06:59 14:59 Intake Total 350 100 120 Balance 350 100 120 Intake: IV 60 0 Intake, Piggyback 100 Oral 290 120 Other: # Voids Urine, Voided 1 1 # Bowel Movements 2 1 - Physical Exam Head: Positive for: Atraumatic, Normocephalic Pupils: Positive for: PERRL Extroacular Muscles: Positive for: EOMI Mouth: Positive for: Moist Mucous Membranes Neck: Positive for: Normal Range of Motion Respiratory/Chest: Positive for: Clear to Auscultation, Good Air Exchange. Negative for: Respiratory Distress, Accessory Muscle Use, Decreased Breath Sounds Cardiovascular: Positive for: Regular Rate and Rhythm, Murmurs (+), Normal S1, S2 Abdomen: Negative for: Tenderness, Distention Upper Extremity: Positive for: Normal Inspection, Neurovascularly Intact, Other (left arm fistula). Negative for: Edema Lower Extremity: Positive for: Normal Inspection, Neurovascularly Intact. Negative for: Edema Neurological: Positive for: GCS=15, Speech Normal, Motor Func Grossly Intact Skin: Positive for: Warm, Dry, Normal Color Psychiatric: Positive for: Alert, Oriented x 3, Normal Mood - Medications Active Medications: Active Medications Generic Name Dose Route Start Last Admin Trade Name Freq PRN Reason Stop Dose Admin Acetaminophen 650 mg 12/09/17 22:17 12/12/17 08:44 Tylenol 325mg Tab PO 650 mg Q6 PRN Administration Headache Amlodipine Besylate 10 mg 12/10/17 09:00 12/12/17 08:39 Norvasc PO 10 mg DAILY [facility] Administration Calcium Acetate 667 mg 12/08/17 13:00 12/12/17 08:38 Phoslo PO 667 mg TIDWM [facility] Administration Epoetin Triston 8,000 unit 12/11/17 10:09 12/11/17 10:31 Procrit IV 8,000 unit MWF [facility] Administration Hydralazine HCl 20 mg 12/10/17 17:53 Apresoline IV Q6 PRN Systolic Blood Pressure Hydralazine HCl 10 mg 12/11/17 09:00 12/12/17 08:40 Apresoline PO 10 mg TID [facility] Administration Levetiracetam 750 mg/ Sodium 107.5 mls @ 215 mls/hr 12/09/17 05:00 12/12/17 04:16 Chloride IVPB 215 mls/hr Q12@0500,1700 [facility] Administration Lorazepam 2 mg 12/08/17 12:37 Ativan IVP Q1 PRN Seizure activity Pantoprazole Sodium 40 mg 12/09/17 09:00 12/12/17 08:39 Protonix Ec Tab PO 40 mg DAILY [facility] Administration Propranolol HCl 10 mg 12/10/17 22:00 12/12/17 04:17 Inderal PO 10 mg Q6 [facility] Administration Sucralfate 1 gm 12/08/17 16:30 12/11/17 16:51 Carafate Tab PO 1 gm BIDAC [facility] Administration Valsartan 320 mg 12/09/17 09:00 12/12/17 08:41 Diovan PO 320 mg DAILY [facility] Administration Vitamin B Complex/Vit C/Folic Acid 1 tab 12/11/17 09:00 12/12/17 08:39 Nephro-Malachi PO 1 tab DAILY [facility] Administration - Patient Studies Lab Studies: Microbiology Studies 12/06/17 06:41 Blood Culture - Final Blood-Venous NO GROWTH AFTER 5 DAYS Gram Stain - Final TEST NOT PERFORMED 12/06/17 06:30 Blood Culture - Final Blood-Venous NO GROWTH AFTER 5 DAYS Gram Stain - Final TEST NOT PERFORMED Lab Studies 12/12/17 12/12/17 12/12/17 Range/Units 05:30 05:30 05:30 WBC 3.7 L (4.8-10.8) K/uL RBC 2.92 L (4.40-5.90) Mil/uL Hgb 8.9 L (12.0-18.0) g/dL Hct 26.6 L (35.0-51.0) % MCV 91.1 (80.0-94.0) fl MCH 30.4 (27.0-31.0) pg MCHC 33.3 (33.0-37.0) g/dL RDW 18.2 H (11.5-14.5) % Plt Count 117 L (130-400) K/uL PT 15.1 H (9.8-13.1) Seconds INR 1.4 H (0.9-1.2) APTT 27.5 (25.6-37.1) Seconds Sodium 136 (132-148) mmol/l Potassium 3.6 (3.6-5.0) MMOL/L Chloride 98 (98-107) mmol/L Carbon Dioxide 28 (22-30) mmol/L Anion Gap 14 (10-20) BUN 26 H (9-20) mg/dl Creatinine 5.5 H (0.8-1.5) mg/dl Est GFR ( Amer) 13 Est GFR (Non-Af Amer) 10 POC Glucose (mg/dL) (65-110) mg/dL Random Glucose 94 (75-110) mg/dL Calcium 8.4 (8.4-10.2) mg/dL C. difficile Ag & Toxin (NEGATIVE) Crossmatch 12/11/17 12/11/17 12/09/17 Range/Units 18:39 11:27 01:46 WBC (4.8-10.8) K/uL RBC (4.40-5.90) Mil/uL Hgb (12.0-18.0) g/dL Hct (35.0-51.0) % MCV (80.0-94.0) fl MCH (27.0-31.0) pg MCHC (33.0-37.0) g/dL RDW (11.5-14.5) % Plt Count (130-400) K/uL PT (9.8-13.1) Seconds INR (0.9-1.2) APTT (25.6-37.1) Seconds Sodium (132-148) mmol/l Potassium (3.6-5.0) MMOL/L Chloride (98-107) mmol/L Carbon Dioxide (22-30) mmol/L Anion Gap (10-20) BUN (9-20) mg/dl Creatinine (0.8-1.5) mg/dl Est GFR ( Amer) Est GFR (Non-Af Amer) POC Glucose (mg/dL) 80 (65-110) mg/dL Random Glucose (75-110) mg/dL Calcium (8.4-10.2) mg/dL C. difficile Ag & Toxin Negative (NEGATIVE) Crossmatch See Detail Laboratory Results - last 24 hr 12/09/17 12/11/17 12/11/17 01:46 11:27 18:39 WBC RBC Hgb Hct MCV MCH MCHC RDW Plt Count PT INR APTT Sodium Potassium Chloride Carbon Dioxide Anion Gap BUN Creatinine Est GFR ( Amer) Est GFR (Non-Af Amer) POC Glucose (mg/dL) 80 Random Glucose Calcium C. difficile Ag & Toxin Negative Crossmatch See Detail 12/12/17 12/12/17 12/12/17 05:30 05:30 05:30 WBC 3.7 L RBC 2.92 L Hgb 8.9 L Hct 26.6 L MCV 91.1 MCH 30.4 MCHC 33.3 RDW 18.2 H Plt Count 117 L PT 15.1 H INR 1.4 H APTT 27.5 Sodium 136 Potassium 3.6 Chloride 98 Carbon Dioxide 28 Anion Gap 14 BUN 26 H Creatinine 5.5 H Est GFR ( Amer) 13 Est GFR (Non-Af Amer) 10 POC Glucose (mg/dL) Random Glucose 94 Calcium 8.4 C. difficile Ag & Toxin Crossmatch Fingerstick Blood Sugar Results: 106 Critical Care Progress Note - Nutrition Nutrition: Nutrition Category Date Time Status Dysphagia/Modified Consistency Diet [DIET] Diets 12/10/17 Dinner Active Assessment/Plan - Assessment and Plan (Free Text) Assessment: A/P Subdural hematoma, seizer disorder, GI bleed, anemia, esophygeal varieces, HTN, ETOH abuse, liver cirrhosis, ESRD - Continue meds - Neurosurgery follow up - Neurology follow up - GI follow up - Follow up labs
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
--- NOTE | 2017-12-12 16:37 | CP.PCM.PN ---
Subjective - Date & Time of Evaluation Date of Evaluation: 12/12/17 Time of Evaluation: 16:35 - Subjective Subjective: Patient examined at bedside. Very pleasant, no aphasia, mild headache, no other complaints. No seizures. On exam: normal neurological examination. Gait not tested. Objective - Vital Signs/Intake and Output Vital Signs (last 24 hours): Temp Pulse Resp BP Pulse Ox 99.7 F H 72 23 169/75 H 99 12/12/17 16:00 12/12/17 16:27 12/12/17 16:00 12/12/17 16:27 12/12/17 16:00 Intake and Output: 12/12/17 12/12/17 06:59 18:59 Intake Total 160 840 Output Total 4 Balance 160 836 - Medications Medications: Current Medications Acetaminophen (Tylenol 325mg Tab) 650 mg PO Q6 PRN PRN Reason: Headache Last Admin: 12/12/17 08:44 Dose: 650 mg Amlodipine Besylate (Norvasc) 10 mg PO DAILY [facility] Last Admin: 12/12/17 08:39 Dose: 10 mg Calcium Acetate (Phoslo) 667 mg PO TIDWM [facility] Last Admin: 12/12/17 16:26 Dose: 667 mg Epoetin Triston (Procrit) 8,000 unit IV MWF [facility] Last Admin: 12/11/17 10:31 Dose: 8,000 unit Hydralazine HCl (Apresoline) 20 mg IV Q6 PRN PRN Reason: Systolic Blood Pressure Hydralazine HCl (Apresoline) 10 mg PO TID [facility] Last Admin: 12/12/17 16:26 Dose: 10 mg Levetiracetam 750 mg/ Sodium (Chloride) 107.5 mls @ 215 mls/hr IVPB Q12@0500, 1700 [facility] Last Admin: 12/12/17 04:16 Dose: 215 mls/hr Levetiracetam (Keppra) 750 mg PO BID [facility] Lorazepam (Ativan) 2 mg IVP Q1 PRN PRN Reason: Seizure activity Pantoprazole Sodium (Protonix Ec Tab) 40 mg PO DAILY [facility] Last Admin: 12/12/17 08:39 Dose: 40 mg Propranolol HCl (Inderal) 10 mg PO Q6 [facility] Last Admin: 12/12/17 16:27 Dose: 10 mg Sucralfate (Carafate Tab) 1 gm PO BIDAC [facility] Last Admin: 12/12/17 16:26 Dose: 1 gm Valsartan (Diovan) 320 mg PO DAILY [facility] Last Admin: 12/12/17 08:41 Dose: 320 mg Vitamin B Complex/Vit C/Folic Acid (Nephro-Malachi) 1 tab PO DAILY [facility] Last Admin: 12/12/17 08:39 Dose: 1 tab - Labs Labs: 12/12/17 05:30 12/12/17 05:30 PT 15.1 Seconds (9.8-13.1) H 12/12/17 05:30 INR 1.4 (0.9-1.2) H 12/12/17 05:30 APTT 27.5 Seconds (25.6-37.1) 12/12/17 05:30 Assessment and Plan - Assessment and Plan (Free Text) Assessment: 71 yr old male with htn,subdural and seizures, now stable. Plan: 1. Continue keppra, po 2. HTN management as per medicine team.
--- NOTE | 2017-12-12 17:15 | CP.PCM.PN ---
Subjective - Date & Time of Evaluation Date of Evaluation: 12/12/17 Time of Evaluation: 17:14 - Subjective Subjective: Follow up Nephrology Consultation Note Assessment: Stable SDH Hypertensive Chronic Kidney Disease (I12.0) End stage renal disease (N18.6) dependence on hemodialysis (Z99.2) (MWF) via AVF Anemia (D64.9), Hyperphosphatemia (E83.39), Secondary Hyperparathyroidism (E21.1 ), HTN (I12.0) thrombocytopenia Plan: Will plan for HD thursday as ordered.Continue with Nephrovite 1 tab/day. PRBC as needed for anemia. On MABLE as epogen with HD, last Hb 8.9, increased to 8000 unit with HD Continue with phos binders, BP control with meds as ordered. Patient on RAAS corbin as diovan. Increased hydralazine 25 mg tid. further can be uptitrated as needed Glycemic control, Dialysis consistent diet Further work up/management as per primary team Dose meds/antibiotics (if needed) for ESRD status. Avoid fleets enema/magnesium based laxatives. Thanks for allowing me to participate in care of your patient. Will follow patient with you. Please call if any Qs Dr Hernesto Bain Office: [phone] Subjective: Noted events overnight. Patients feels okay. Denies chest pain, palpitation, shortness of breath, leg swelling. All other negative Physical Examination: General Appearance: Comfortable, in no acute respiratory distress, co-operative . Vitals reviewed and noted as below Head; Atraumatic, normocephalic ENT: no ulcers no thrush. Tongue is midline. Oropharynx: no rash or ulcers. EYES: Pupils are equal, round and reactive to light accommodation. Eye muscles and extraocular movement intact. Sclera is anicteric. Neck; supple no lymphadenopathy, no thyromegaly or bruit Lungs: Normal respiratory rate/effort. Breath sounds bilateral equal and clear Heart: Normal rate. s1s2 normal. No rub or gallop. Extremities: no edema. No varicose veins Neurological: Patient is alert, awake and oriented to person, place and time. No focal deficit. Strength bilateral appropriate and equal Skin: Warm and dry. Normal turgor. No rash. Palpitation: Normal elasticity for age Abdomen: Abdomen is soft. Bowel sounds +. There is no abdominal tenderness, no guarding/rigidity or organomegaly Psych: limited insight and normal affect/mood MSK: no joint tenderness or swelling. Digits and nails normal, no deformity : kidney or bladder not palpable Access: AVF Labs/imaging reviewed. Past medical history, past surgical history, family history, social history, allergy reviewed and noted as below Family Hx: no hx of CKD. Non contributory Objective - Vital Signs/Intake and Output Vital Signs (last 24 hours): Temp Pulse Resp BP Pulse Ox 99.7 F H 72 23 169/75 H 99 12/12/17 16:00 12/12/17 16:27 12/12/17 16:00 12/12/17 16:27 12/12/17 16:00 Intake and Output: 12/12/17 12/12/17 06:59 18:59 Intake Total 160 1080 Output Total 4 Balance 160 1076 - Medications Medications: Current Medications Acetaminophen (Tylenol 325mg Tab) 650 mg PO Q6 PRN PRN Reason: Headache Last Admin: 12/12/17 08:44 Dose: 650 mg Amlodipine Besylate (Norvasc) 10 mg PO DAILY [facility] Last Admin: 12/12/17 08:39 Dose: 10 mg Calcium Acetate (Phoslo) 667 mg PO TIDWM [facility] Last Admin: 12/12/17 16:26 Dose: 667 mg Epoetin Triston (Procrit) 8,000 unit IV MWF [facility] Last Admin: 12/11/17 10:31 Dose: 8,000 unit Hydralazine HCl (Apresoline) 20 mg IV Q6 PRN PRN Reason: Systolic Blood Pressure Hydralazine HCl (Apresoline) 25 mg PO TID [facility] Levetiracetam (Keppra) 750 mg PO BID [facility] Lorazepam (Ativan) 2 mg IVP Q1 PRN PRN Reason: Seizure activity Pantoprazole Sodium (Protonix Ec Tab) 40 mg PO DAILY [facility] Last Admin: 12/12/17 08:39 Dose: 40 mg Propranolol HCl (Inderal) 10 mg PO Q6 [facility] Last Admin: 12/12/17 16:27 Dose: 10 mg Sucralfate (Carafate Tab) 1 gm PO BIDAC [facility] Last Admin: 12/12/17 16:26 Dose: 1 gm Valsartan (Diovan) 320 mg PO DAILY [facility] Last Admin: 12/12/17 08:41 Dose: 320 mg Vitamin B Complex/Vit C/Folic Acid (Nephro-Malachi) 1 tab PO DAILY [facility] Last Admin: 12/12/17 08:39 Dose: 1 tab - Labs Labs: 12/12/17 05:30 12/12/17 05:30 PT 15.1 Seconds (9.8-13.1) H 12/12/17 05:30 INR 1.4 (0.9-1.2) H 12/12/17 05:30 APTT 27.5 Seconds (25.6-37.1) 12/12/17 05:30
[2017-12-12] MEDS ORDERED: Iohexol 240 (50 ml) PO ONE (22:15)
--- NOTE | 2017-12-13 02:12 | CT ---
EXAM: CT Abdomen and Pelvis With Intravenous Contrast EXAM DATE/TIME: 12/12/2017 10:14 PM CLINICAL HISTORY: 71 years old, male; Pain; Abdominal pain; Generalized; Additional info: Fever, abdominal pain TECHNIQUE: Axial computed tomography images of the abdomen and pelvis with intravenous contrast. All CT scans at this facility use one or more dose reduction techniques, viz.: automated exposure control; ma/kV adjustment per patient size (including targeted exams where dose is matched to indication; i.e. head); or iterative reconstruction technique. Coronal and sagittal reformatted images were created and reviewed. COMPARISON: No relevant prior studies available. FINDINGS: Patient motion is present limiting exam. Mild cardiomegaly. There are small bilateral pleural effusions with associated atelectasis.. The liver is nodular in contour suggestive of cirrhosis. The spleen is enlarged. There is ascites in the abdomen and pelvis. Findings supportive of portal hypertension. There is diffuse haziness throughout the mesentery most notably in the midabdomen The gallbladder appears contracted. The pancreas and adrenal glands are grossly normal. Kidneys are atrophic bilaterally and contain nonobstructing calcifications. There are small bowel loops in the left upper quadrant with thickened rice and folds. This may be partially due to the patient's edematous state although superimposed infectious/inflammatory process cannot be excluded. There are focal segments of wall thickening throughout the right colon most notably in the hepatic flexure in 38 series 2. These are at least partially due to under distention although underlying lesion would be difficult to exclude. Followup colonoscopy may be helpful. There is no stranding in the surrounding fat to suggest colitis. Normal appendix axial images 53 through 57. The prostate is enlarged. IMPRESSION: Cirrhosis, splenomegaly, ascites. Findings supportive of portal hypertension. Possible small bowel enteritis left upper quadrant as discussed in the body of the report. Enlarged prostate.Recommend correlation with PSA level. Small bilateral pleural effusions.
[2017-12-13] MEDS ORDERED: Ciprofloxacin 400mg/200ml D5W 400 MG/200 ML BAG IVPB SCH (02:20)
[2017-12-13] MEDS: metroNIDAZOLE 500mg/100ml NS 100 ML IVPB SCH ×3 (03:13→16:37)
[2017-12-13 07:56] LABS: INR 1.4 (0.9-1.2); PARTIAL THROMBOPLASTIN TIME 26.6 Seconds (25.6-37.1); PROTHROMBIN TIME 16.1 Seconds (9.8-13.1)
--- NOTE | 2017-12-13 08:04 | CP.CCUPN ---
CCU Subjective - Physician Review Events Since Last Encounter (Free Text): Patient awake, no distress, no fever, no vomiting, events reviewed CCU Objective - Vital Signs / Intake & Output Vital Signs (Last 4 hours): Vital Signs Temp Pulse Resp BP Pulse Ox 12/13/17 07:57 100.7 F H 67 24 143/57 L 97 12/13/17 06:00 101.6 F H 66 20 124/61 96 12/13/17 04:42 101.9 F H 72 23 124/61 Intake and Output (Last 8hrs): Intake & Output 12/12/17 12/13/17 12/13/17 22:59 06:59 14:59 Intake Total 250 620 Balance 250 620 Intake: IV 10 120 Oral 240 500 Other: # Bowel Movements 7 - Physical Exam Head: Positive for: Atraumatic, Normocephalic Pupils: Positive for: PERRL Extroacular Muscles: Positive for: EOMI Mouth: Positive for: Moist Mucous Membranes Neck: Positive for: Normal Range of Motion Respiratory/Chest: Positive for: Clear to Auscultation, Good Air Exchange. Negative for: Respiratory Distress, Accessory Muscle Use, Decreased Breath Sounds Cardiovascular: Positive for: Regular Rate and Rhythm, Murmurs (+), Normal S1, S2 Abdomen: Negative for: Tenderness, Distention Upper Extremity: Positive for: Normal Inspection, Neurovascularly Intact, Other (left arm fistula). Negative for: Edema Lower Extremity: Positive for: Normal Inspection, Neurovascularly Intact. Negative for: Edema Neurological: Positive for: GCS=15, Speech Normal, Motor Func Grossly Intact Skin: Positive for: Warm, Dry, Normal Color Psychiatric: Positive for: Alert, Oriented x 3, Normal Mood - Medications Active Medications: Active Medications Generic Name Dose Route Start Last Admin Trade Name Freq PRN Reason Stop Dose Admin Acetaminophen 650 mg 12/09/17 22:17 12/13/17 03:42 Tylenol 325mg Tab PO 650 mg Q6 PRN Administration Headache Amlodipine Besylate 10 mg 12/10/17 09:00 12/12/17 08:39 Norvasc PO 10 mg DAILY [facility] Administration Calcium Acetate 667 mg 12/08/17 13:00 12/12/17 16:26 Phoslo PO 667 mg TIDWM [facility] Administration Epoetin Triston 8,000 unit 12/11/17 10:09 12/11/17 10:31 Procrit IV 8,000 unit MWF [facility] Administration Hydralazine HCl 20 mg 12/10/17 17:53 Apresoline IV Q6 PRN Systolic Blood Pressure Hydralazine HCl 25 mg 12/12/17 17:15 12/12/17 18:22 Apresoline PO 25 mg TID [facility] Administration Metronidazole 100 mls @ 100 mls/hr 12/13/17 02:30 12/13/17 03:13 Flagyl 500mg/100ml Ns IVPB 100 mls/hr Q8 [facility] Administration Protocol Ceftriaxone Sodium 1 gm/ 100 mls @ 100 mls/hr 12/13/17 09:00 Sodium Chloride IVPB DAILY [facility] Protocol Levetiracetam 750 mg 12/12/17 17:00 12/12/17 18:23 Keppra PO 750 mg BID [facility] Administration Lorazepam 2 mg 12/08/17 12:37 Ativan IVP Q1 PRN Seizure activity Pantoprazole Sodium 40 mg 12/09/17 09:00 12/12/17 08:39 Protonix Ec Tab PO 40 mg DAILY [facility] Administration Propranolol HCl 10 mg 12/10/17 22:00 12/13/17 03:14 Inderal PO 10 mg Q6 [facility] Administration Sucralfate 1 gm 12/08/17 16:30 12/12/17 16:26 Carafate Tab PO 1 gm BIDAC [facility] Administration Valsartan 320 mg 12/09/17 09:00 12/12/17 08:41 Diovan PO 320 mg DAILY [facility] Administration Vitamin B Complex/Vit C/Folic Acid 1 tab 12/11/17 09:00 12/12/17 08:39 Nephro-Malachi PO 1 tab DAILY [facility] Administration - Patient Studies Lab Studies: Lab Studies 12/13/17 Range/Units 06:55 PT 16.1 H (9.8-13.1) Seconds INR 1.4 H (0.9-1.2) APTT 26.6 (25.6-37.1) Seconds Laboratory Results - last 24 hr 12/13/17 06:55 PT 16.1 H INR 1.4 H APTT 26.6 Fingerstick Blood Sugar Results: 106 Critical Care Progress Note - Nutrition Nutrition: Nutrition Category Date Time Status Dysphagia/Modified Consistency Diet [DIET] Diets 12/10/17 Dinner Active Assessment/Plan - Assessment and Plan (Free Text) Assessment: A/P Subdural hematoma, seizer disorder, GI bleed, anemia, esophygeal varieces, HTN, ETOH abuse, liver cirrhosis, ESRD, ?enteritis - Continue meds - Neurosurgery follow up - Neurology follow up - GI follow up - Follow up labs
[2017-12-13 08:20] LABS: HEMOGLOBIN 8.5 g/dL (12.0-18.0); MEAN CELL VOLUME 93.3 fl (80.0-94.0); MEAN CORPUSCULAR HEMOGLOBIN 30.4 pg (27.0-31.0); MEAN CORPUSCULAR HGB CONC 32.5 g/dL (33.0-37.0); RBC 2.8 Mil/uL (4.40-5.90); RED CELL DISTRIBUTION WIDTH 18.2 % (11.5-14.5); WHITE BLOOD COUNT 5.6 K/uL (4.8-10.8)
[2017-12-13 08:31] LABS: CALCIUM 8.5 mg/dL (8.4-10.2)
--- NOTE | 2017-12-13 08:50 | CP.PCM.PN ---
Subjective - Date & Time of Evaluation Date of Evaluation: 12/13/17 Time of Evaluation: 08:48 - Subjective Subjective: Mr. Manzanares was seen and examined at the bedside. He is alert, oriented and able to participate in a conversation. He denies any headache, dizziness, lightheadedness, nausea, or vomiting. He is able to follow commands. CT of the head (12/11/2016) showed re demonstration of a medium size left sided frontal subdural hematoma which exterts moderate subjacent mass effect compressing the cortex left frontal lobe and left lateral ventricle with mild [id number] midline shift. There is no new hemorrhage, obstructive hydrocephalus. There was no untoward events overnight. Objective - Vital Signs/Intake and Output Vital Signs (last 24 hours): Temp Pulse Resp BP Pulse Ox 100.7 F H 67 24 143/57 L 97 12/13/17 07:57 12/13/17 07:57 12/13/17 07:57 12/13/17 07:57 12/13/17 07:57 Intake and Output: 12/13/17 12/13/17 06:59 18:59 Intake Total 630 Balance 630 - Medications Medications: Current Medications Acetaminophen (Tylenol 325mg Tab) 650 mg PO Q6 PRN PRN Reason: Headache Last Admin: 12/13/17 03:42 Dose: 650 mg Amlodipine Besylate (Norvasc) 10 mg PO DAILY [facility] Last Admin: 12/12/17 08:39 Dose: 10 mg Calcium Acetate (Phoslo) 667 mg PO TIDWM [facility] Last Admin: 12/12/17 16:26 Dose: 667 mg Epoetin Triston (Procrit) 8,000 unit IV MWF [facility] Last Admin: 12/11/17 10:31 Dose: 8,000 unit Hydralazine HCl (Apresoline) 20 mg IV Q6 PRN PRN Reason: Systolic Blood Pressure Hydralazine HCl (Apresoline) 25 mg PO TID [facility] Last Admin: 12/12/17 18:22 Dose: 25 mg Metronidazole (Flagyl 500mg/100ml Ns) 100 mls @ 100 mls/hr IVPB Q8 [facility] PRN Reason: Protocol Last Admin: 12/13/17 03:13 Dose: 100 mls/hr Ceftriaxone Sodium 1 gm/ (Sodium Chloride) 100 mls @ 100 mls/hr IVPB DAILY [facility] PRN Reason: Protocol Levetiracetam (Keppra) 750 mg PO BID [facility] Last Admin: 12/12/17 18:23 Dose: 750 mg Lorazepam (Ativan) 2 mg IVP Q1 PRN PRN Reason: Seizure activity Pantoprazole Sodium (Protonix Ec Tab) 40 mg PO DAILY [facility] Last Admin: 12/12/17 08:39 Dose: 40 mg Propranolol HCl (Inderal) 10 mg PO Q6 [facility] Last Admin: 12/13/17 03:14 Dose: 10 mg Sucralfate (Carafate Tab) 1 gm PO BIDAC [facility] Last Admin: 12/12/17 16:26 Dose: 1 gm Valsartan (Diovan) 320 mg PO DAILY [facility] Last Admin: 12/12/17 08:41 Dose: 320 mg Vitamin B Complex/Vit C/Folic Acid (Nephro-Malachi) 1 tab PO DAILY [facility] Last Admin: 12/12/17 08:39 Dose: 1 tab - Labs Labs: 12/13/17 06:55 12/13/17 06:55 PT 16.1 Seconds (9.8-13.1) H 12/13/17 06:55 INR 1.4 (0.9-1.2) H 12/13/17 06:55 APTT 26.6 Seconds (25.6-37.1) 12/13/17 06:55 - Constitutional Appears: No Acute Distress - Head Exam Head Exam: NORMAL INSPECTION - Neurological Exam Neurological Exam: Alert, Awake Neuro motor strength exam: Left Upper Extremity: 4, Right Upper Extremity: 4, Left Lower Extremity: 4, Right Lower Extremity: 4 Additional comments: Neurological improved from previous examination. Sensation remains intact. Assessment and Plan (1) Seizure Assessment & Plan: Case discussed with Dr. Lau, continue all current medical regimen including AED and BP control. Status: Acute
[2017-12-13] MEDS: Multivitamin Vitamin B Complex (Nephro-Vite) Tab PO SCH (08:59)
[2017-12-13] MEDS: Pantoprazole 40 mg EC Tab PO SCH (09:00)
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
--- NOTE | 2017-12-13 11:49 | RAD ---
PROCEDURE: CHEST RADIOGRAPH, 1 VIEW HISTORY: fever COMPARISON: Comparison chest 12/06/2017. The the theNone available. FINDINGS: LUNGS: Poor inspiration with low lung volumes, crowded bronchovascular markings and mild bibasilar atelectasis and or developing infiltrates. The central pulmonary vasculature is also increased in part due to low lung volumes as well however rule out mild pulmonary edema related to fluid overload or mild chronic compensated CHF PLEURA: No pneumothorax or pleural fluid seen. CARDIOVASCULAR: Heart appears enlarged. No change endovascular stents left subclavian and left axillary region. OSSEOUS STRUCTURES: No significant abnormalities. VISUALIZED UPPER ABDOMEN: Normal. OTHER FINDINGS: None. IMPRESSION: Poor inspiration with low lung volumes, crowded bronchovascular markings and mild bibasilar atelectasis and or developing infiltrates. The central pulmonary vasculature is also increased in part due to low lung volumes as well however rule out mild pulmonary edema related to fluid overload or mild chronic compensated CHF
--- NOTE | 2017-12-13 14:31 | CP.PCM.PN ---
Subjective - Date & Time of Evaluation Date of Evaluation: 12/13/17 Time of Evaluation: 10:00 - Subjective Subjective: Follow up Nephrology Consultation Note Assessment: Stable SDH Hypertensive Chronic Kidney Disease (I12.0) End stage renal disease (N18.6) dependence on hemodialysis (Z99.2) (MWF) via AVF Anemia (D64.9), Hyperphosphatemia (E83.39), Secondary Hyperparathyroidism (E21.1 ), HTN (I12.0) thrombocytopenia Plan: Will plan for HD tomorrow as ordered.Continue with Nephrovite 1 tab/day. PRBC as needed for anemia. On MABLE as epogen with HD, 8000 unit with HD Continue with phos binders, BP control with meds as ordered. Patient on RAAS corbin as diovan. Glycemic control, Dialysis consistent diet Further work up/management as per primary team Dose meds/antibiotics (if needed) for ESRD status. Avoid fleets enema/magnesium based laxatives. fever w/up as per primary team Thanks for allowing me to participate in care of your patient. Will follow patient with you. Please call if any Qs. d/w primary team Dr Hernesto Bain Office: [phone] Subjective: Noted events overnight. Patients feels okay. Denies chest pain, palpitation, shortness of breath, leg swelling. had fever Physical Examination: General Appearance: Comfortable, in no acute respiratory distress, co-operative . Vitals reviewed and noted as below Head; Atraumatic, normocephalic ENT: no ulcers no thrush. Tongue is midline. Oropharynx: no rash or ulcers. EYES: Pupils are equal, round and reactive to light accommodation. Eye muscles and extraocular movement intact. Sclera is anicteric. Neck; supple no lymphadenopathy, no thyromegaly or bruit Lungs: Normal respiratory rate/effort. Breath sounds bilateral equal and clear Heart: Normal rate. s1s2 normal. No rub or gallop. Extremities: no edema. No varicose veins Neurological: Patient is alert, awake and oriented to person, place and time. No focal deficit. Strength bilateral appropriate and equal Skin: Warm and dry. Normal turgor. No rash. Palpitation: Normal elasticity for age Abdomen: Abdomen is soft. Bowel sounds +. There is no abdominal tenderness, no guarding/rigidity or organomegaly Psych: limited insight and normal affect/mood MSK: no joint tenderness or swelling. Digits and nails normal, no deformity : kidney or bladder not palpable Access: AVF Labs/imaging reviewed. Past medical history, past surgical history, family history, social history, allergy reviewed and noted as below Family Hx: no hx of CKD. Non contributory Objective - Vital Signs/Intake and Output Vital Signs (last 24 hours): Temp Pulse Resp BP Pulse Ox 102.5 F H 76 23 152/73 H 96 12/13/17 12:14 12/13/17 12:12 12/13/17 12:00 12/13/17 12:12 12/13/17 12:00 Intake and Output: 12/13/17 12/13/17 06:59 18:59 Intake Total 630 200 Balance 630 200 - Medications Medications: Current Medications Acetaminophen (Tylenol 325mg Tab) 650 mg PO Q6 PRN PRN Reason: Headache Last Admin: 12/13/17 12:14 Dose: 650 mg Amlodipine Besylate (Norvasc) 10 mg PO DAILY [facility] Last Admin: 12/13/17 08:59 Dose: 10 mg Calcium Acetate (Phoslo) 667 mg PO TIDWM [facility] Last Admin: 12/13/17 12:12 Dose: 667 mg Epoetin Triston (Procrit) 8,000 unit IV MWF [facility] Last Admin: 12/11/17 10:31 Dose: 8,000 unit Hydralazine HCl (Apresoline) 20 mg IV Q6 PRN PRN Reason: Systolic Blood Pressure Hydralazine HCl (Apresoline) 25 mg PO TID [facility] Last Admin: 12/13/17 12:12 Dose: 25 mg Metronidazole (Flagyl 500mg/100ml Ns) 100 mls @ 100 mls/hr IVPB Q8 [facility] PRN Reason: Protocol Last Admin: 12/13/17 08:57 Dose: 100 mls/hr Ceftriaxone Sodium 1 gm/ (Sodium Chloride) 100 mls @ 100 mls/hr IVPB DAILY [facility] PRN Reason: Protocol Last Admin: 12/13/17 09:00 Dose: 100 mls/hr Levetiracetam (Keppra) 750 mg PO BID [facility] Last Admin: 12/13/17 08:59 Dose: 750 mg Lorazepam (Ativan) 2 mg IVP Q1 PRN PRN Reason: Seizure activity Pantoprazole Sodium (Protonix Ec Tab) 40 mg PO DAILY [facility] Last Admin: 12/13/17 09:00 Dose: 40 mg Propranolol HCl (Inderal) 10 mg PO Q6 [facility] Last Admin: 12/13/17 09:01 Dose: 10 mg Sucralfate (Carafate Tab) 1 gm PO BIDAC [facility] Last Admin: 12/13/17 08:57 Dose: 1 gm Valsartan (Diovan) 320 mg PO DAILY [facility] Last Admin: 12/13/17 08:57 Dose: 320 mg Vitamin B Complex/Vit C/Folic Acid (Nephro-Malachi) 1 tab PO DAILY [facility] Last Admin: 12/13/17 08:59 Dose: 1 tab - Labs Labs: 12/13/17 06:55 12/13/17 06:55 PT 16.1 Seconds (9.8-13.1) H 12/13/17 06:55 INR 1.4 (0.9-1.2) H 12/13/17 06:55 APTT 26.6 Seconds (25.6-37.1) 12/13/17 06:55
--- NOTE | 2017-12-13 16:42 | CP.PCM.PN ---
Subjective - Date & Time of Evaluation Date of Evaluation: 12/13/17 Time of Evaluation: 16:40 - Subjective Subjective: ID NOTE HAVE REVIEWED CHART GRAM NEG SEPSIS AWAIT CULTURE RESULTS ADD MEROPENEM IN RENAL DOSE (500G IVPB Q24H) Objective - Vital Signs/Intake and Output Vital Signs (last 24 hours): Temp Pulse Resp BP Pulse Ox 103.1 F H 88 22 143/80 97 12/13/17 16:00 12/13/17 16:00 12/13/17 16:00 12/13/17 16:00 12/13/17 16:00 Intake and Output: 12/13/17 12/13/17 06:59 18:59 Intake Total 630 224 Balance 630 224 - Medications Medications: Current Medications Acetaminophen (Tylenol 325mg Tab) 650 mg PO Q6 PRN PRN Reason: Headache Last Admin: 12/13/17 12:14 Dose: 650 mg Amlodipine Besylate (Norvasc) 10 mg PO DAILY [facility] Last Admin: 12/13/17 08:59 Dose: 10 mg Calcium Acetate (Phoslo) 667 mg PO TIDWM [facility] Last Admin: 12/13/17 12:12 Dose: 667 mg Epoetin Triston (Procrit) 8,000 unit IV MWF [facility] Last Admin: 12/11/17 10:31 Dose: 8,000 unit Hydralazine HCl (Apresoline) 20 mg IV Q6 PRN PRN Reason: Systolic Blood Pressure Hydralazine HCl (Apresoline) 25 mg PO TID [facility] Last Admin: 12/13/17 12:12 Dose: 25 mg Metronidazole (Flagyl 500mg/100ml Ns) 100 mls @ 100 mls/hr IVPB Q8 [facility] PRN Reason: Protocol Last Admin: 12/13/17 08:57 Dose: 100 mls/hr Piperacillin Sod/Tazobactam (Sod 2.25 gm/ Sodium Chloride) 100 mls @ 100 mls/ hr IVPB Q8 [facility] PRN Reason: Protocol Meropenem 500 mg/ Sodium (Chloride) 100 mls @ 100 mls/hr IVPB Q24H [facility] PRN Reason: Protocol Levetiracetam (Keppra) 750 mg PO BID [facility] Last Admin: 12/13/17 08:59 Dose: 750 mg Lorazepam (Ativan) 2 mg IVP Q1 PRN PRN Reason: Seizure activity Pantoprazole Sodium (Protonix Ec Tab) 40 mg PO DAILY [facility] Last Admin: 12/13/17 09:00 Dose: 40 mg Propranolol HCl (Inderal) 10 mg PO Q6 [facility] Last Admin: 12/13/17 09:01 Dose: 10 mg Sucralfate (Carafate Tab) 1 gm PO BIDAC [facility] Last Admin: 12/13/17 08:57 Dose: 1 gm Valsartan (Diovan) 320 mg PO DAILY [facility] Last Admin: 12/13/17 08:57 Dose: 320 mg Vitamin B Complex/Vit C/Folic Acid (Nephro-Malachi) 1 tab PO DAILY [facility] Last Admin: 12/13/17 08:59 Dose: 1 tab - Labs Labs: 12/13/17 06:55 12/13/17 06:55 PT 16.1 Seconds (9.8-13.1) H 12/13/17 06:55 INR 1.4 (0.9-1.2) H 12/13/17 06:55 APTT 26.6 Seconds (25.6-37.1) 12/13/17 06:55
[2017-12-13] MEDS: Meropenem 500 MG in Sodium Chloride 0.9% 100 ML IVPB SCH (17:05)
[2017-12-14] MEDS: metroNIDAZOLE 500mg/100ml NS 100 ML IVPB SCH ×2 (00:01→12:11)
[2017-12-14 05:35] LABS: HEMOGLOBIN 8.5 g/dL (12.0-18.0); MEAN CELL VOLUME 91.6 fl (80.0-94.0); MEAN CORPUSCULAR HEMOGLOBIN 30.6 pg (27.0-31.0); MEAN CORPUSCULAR HGB CONC 33.4 g/dL (33.0-37.0); RBC 2.79 Mil/uL (4.40-5.90); RED CELL DISTRIBUTION WIDTH 18.3 % (11.5-14.5)
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
[2017-12-14] MEDS: Epoetin Alfa 20000 UNIT/ML Inj IV SCH (09:46)
--- NOTE | 2017-12-14 10:07 | CP.PCM.PN ---
Subjective - Date & Time of Evaluation Date of Evaluation: 12/14/17 Time of Evaluation: 10:04 - Subjective Subjective: Mr. Manzanares was seen and examined at the bedside in ICU. He is alert, oriented to place, but unable to states time and person. He is able to answer some questions and follow commands. He denies any headache, dizziness, lightheadedness. Currently, receiving hemodialysis.He had an episode of febrile yesterday, ID was called and continuous episode of diarrhea, primary physician made aware. Objective - Vital Signs/Intake and Output Vital Signs (last 24 hours): Temp Pulse Resp BP Pulse Ox 97.1 F L 63 26 H 101/57 L 99 12/14/17 08:17 12/14/17 09:45 12/14/17 08:17 12/14/17 09:45 12/14/17 08:17 Intake and Output: 12/14/17 12/14/17 06:59 18:59 Intake Total 300 Output Total 130 Balance 170 - Medications Medications: Current Medications Acetaminophen (Tylenol 325mg Tab) 650 mg PO Q6 PRN PRN Reason: Headache Last Admin: 12/13/17 12:14 Dose: 650 mg Amlodipine Besylate (Norvasc) 10 mg PO DAILY [facility] Last Admin: 12/13/17 08:59 Dose: 10 mg Calcium Acetate (Phoslo) 667 mg PO TIDWM [facility] Last Admin: 12/14/17 09:45 Dose: Not Given Epoetin Triston (Procrit) 8,000 unit IV MWF [facility] Last Admin: 12/14/17 09:46 Dose: 8,000 unit Hydralazine HCl (Apresoline) 20 mg IV Q6 PRN PRN Reason: Systolic Blood Pressure Hydralazine HCl (Apresoline) 25 mg PO TID [facility] Last Admin: 12/14/17 09:44 Dose: Not Given Metronidazole (Flagyl 500mg/100ml Ns) 100 mls @ 100 mls/hr IVPB Q8 [facility] PRN Reason: Protocol Last Admin: 12/14/17 00:01 Dose: 100 mls/hr Piperacillin Sod/Tazobactam (Sod 2.25 gm/ Sodium Chloride) 100 mls @ 100 mls/ hr IVPB Q8 [facility] PRN Reason: Protocol Last Admin: 12/14/17 00:59 Dose: 100 mls/hr Meropenem 500 mg/ Sodium (Chloride) 100 mls @ 100 mls/hr IVPB Q24H [facility] PRN Reason: Protocol Last Admin: 12/13/17 17:05 Dose: 100 mls/hr Levetiracetam (Keppra) 750 mg PO BID [facility] Last Admin: 12/13/17 16:38 Dose: 750 mg Lorazepam (Ativan) 2 mg IVP Q1 PRN PRN Reason: Seizure activity Pantoprazole Sodium (Protonix Ec Tab) 40 mg PO DAILY [facility] Last Admin: 12/13/17 09:00 Dose: 40 mg Propranolol HCl (Inderal) 10 mg PO Q6 [facility] Last Admin: 12/14/17 09:45 Dose: Not Given Sucralfate (Carafate Tab) 1 gm PO BIDAC [facility] Last Admin: 12/14/17 09:45 Dose: Not Given Valsartan (Diovan) 320 mg PO DAILY [facility] Last Admin: 12/13/17 08:57 Dose: 320 mg Vitamin B Complex/Vit C/Folic Acid (Nephro-Malachi) 1 tab PO DAILY [facility] Last Admin: 12/13/17 08:59 Dose: 1 tab - Labs Labs: 12/14/17 04:40 12/14/17 04:40 PT 16.1 Seconds (9.8-13.1) H 12/13/17 06:55 INR 1.4 (0.9-1.2) H 12/13/17 06:55 APTT 26.6 Seconds (25.6-37.1) 12/13/17 06:55 - Constitutional Appears: No Acute Distress - Head Exam Head Exam: NORMAL INSPECTION - Neurological Exam Neurological Exam: Alert, Awake Neuro motor strength exam: Left Upper Extremity: 0 (dialysis access), Right Upper Extremity: 5, Left Lower Extremity: 3, Right Lower Extremity: 3 Additional comments: Neurological unchanged from previous examination. Assessment and Plan (1) Seizure Assessment & Plan: Case discussed with Dr. Mcguire, continue all current medical regimen. Treat any electrolyte abnormality. Status: Acute
[2017-12-14] MEDS: Cholestyramine 4 gm/Pkt UD PO SCH (13:28)
[2017-12-14] MEDS: Pantoprazole 40 mg EC Tab PO SCH (13:28)
[2017-12-14] MEDS: Multivitamin Vitamin B Complex (Nephro-Vite) Tab PO SCH (13:28)
[2017-12-14] MEDS: metroNIDAZOLE 500mg/100ml NS 250 MG in Premixed IV 1 EA IVPB SCH (16:58)
[2017-12-14] MEDS: Meropenem 500 MG in Sodium Chloride 0.9% 100 ML IVPB SCH (16:59)
--- NOTE | 2017-12-14 19:13 | CP.PCM.PN ---
Subjective - Date & Time of Evaluation Date of Evaluation: 12/14/17 Time of Evaluation: 19:00 - Subjective Subjective: Patient was seen and examined bedside. Complaining of multiple watery diarrhea episodes. Denies any abdominal pain , nausea, vomitus,blood in stool. Afebrile, hemodynamically stable. Received HD today Awake alert oriented x3 , answering all questions appropriately No acute issues overnight Denies any CP or SOB , PAYNE Objective - Vital Signs/Intake and Output Vital Signs (last 24 hours): Temp Pulse Resp BP Pulse Ox 98.6 F 77 14 101/61 98 12/14/17 16:00 12/14/17 18:00 12/14/17 18:00 12/14/17 18:00 12/14/17 18:00 Intake and Output: 12/14/17 12/15/17 18:59 06:59 Intake Total 764 Output Total 2300 Balance -1536 - Medications Medications: Current Medications Acetaminophen (Tylenol 325mg Tab) 650 mg PO Q6 PRN PRN Reason: Headache Last Admin: 12/13/17 12:14 Dose: 650 mg Amlodipine Besylate (Norvasc) 10 mg PO DAILY [facility] Last Admin: 12/14/17 17:01 Dose: 10 mg Calcium Acetate (Phoslo) 667 mg PO TIDWM [facility] Last Admin: 12/14/17 17:01 Dose: 667 mg Cholestyramine Resin (Questran) 4 gm PO DAILY [facility] Last Admin: 12/14/17 13:28 Dose: 4 gm Epoetin Triston (Procrit) 8,000 unit IV MWF [facility] Last Admin: 12/14/17 09:46 Dose: 8,000 unit Hydralazine HCl (Apresoline) 20 mg IV Q6 PRN PRN Reason: Systolic Blood Pressure Hydralazine HCl (Apresoline) 25 mg PO TID [facility] Last Admin: 12/14/17 16:56 Dose: 25 mg Piperacillin Sod/Tazobactam (Sod 2.25 gm/ Sodium Chloride) 100 mls @ 100 mls/ hr IVPB Q8 [facility] PRN Reason: Protocol Last Admin: 12/14/17 17:02 Dose: 100 mls/hr Meropenem 500 mg/ Sodium (Chloride) 100 mls @ 100 mls/hr IVPB Q24H [facility] PRN Reason: Protocol Last Admin: 12/14/17 16:59 Dose: 100 mls/hr Metronidazole 250 mg/ (Miscellaneous) 50 mls @ 50 mls/hr IVPB Q8 [facility] PRN Reason: Protocol Last Admin: 12/14/17 16:58 Dose: 50 mls/hr Levetiracetam (Keppra) 750 mg PO BID [facility] Last Admin: 12/14/17 16:59 Dose: 750 mg Lorazepam (Ativan) 2 mg IVP Q1 PRN PRN Reason: Seizure activity Pantoprazole Sodium (Protonix Ec Tab) 40 mg PO DAILY [facility] Last Admin: 12/14/17 13:28 Dose: 40 mg Propranolol HCl (Inderal) 10 mg PO Q6 [facility] Last Admin: 12/14/17 16:58 Dose: 10 mg Sucralfate (Carafate Tab) 1 gm PO BIDAC [facility] Last Admin: 12/14/17 16:57 Dose: 1 gm Valsartan (Diovan) 320 mg PO DAILY [facility] Last Admin: 12/14/17 16:57 Dose: 320 mg Vitamin B Complex/Vit C/Folic Acid (Nephro-Malachi) 1 tab PO DAILY [facility] Last Admin: 12/14/17 13:28 Dose: 1 tab - Labs Labs: 12/14/17 04:40 12/14/17 04:40 PT 16.1 Seconds (9.8-13.1) H 12/13/17 06:55 INR 1.4 (0.9-1.2) H 12/13/17 06:55 APTT 26.6 Seconds (25.6-37.1) 12/13/17 06:55 - Constitutional Appears: Non-toxic, No Acute Distress - Head Exam Head Exam: ATRAUMATIC, NORMAL INSPECTION, NORMOCEPHALIC - Eye Exam Eye Exam: EOMI, Normal appearance, PERRL Pupil Exam: NORMAL ACCOMODATION - ENT Exam ENT Exam: Mucous Membranes Moist, Normal Exam - Neck Exam Neck Exam: Full ROM, Normal Inspection - Respiratory Exam Respiratory Exam: Clear to Ausculation Bilateral, NORMAL BREATHING PATTERN. absent: Rales, Rhonchi, Wheezes - Cardiovascular Exam Cardiovascular Exam: REGULAR RHYTHM, RRR, +S1, +S2. absent: JVD - GI/Abdominal Exam GI & Abdominal Exam: Soft, Normal Bowel Sounds. absent: Distended, Guarding, Tenderness, Rebound - Rectal Exam Rectal Exam: Deferred - Extremities Exam Extremities Exam: Normal Capillary Refill, Normal Inspection. absent: Pedal Edema Additional comments: LUE AV shunt - Neurological Exam Neurological Exam: Alert, Awake, CN II-XII Intact, Oriented x3 - Psychiatric Exam Psychiatric exam: Normal Affect - Skin Skin Exam: Dry, Intact, Normal Color, Warm Assessment and Plan - Assessment and Plan (Free Text) Assessment: 71 year old male with hx of ESRD on HD MWF, liver cirrhosis with Upper GI bleed , last admitted to [facility] with upper GI bleed from esophageal Varices and discharged 11/29/17 after EGD and Transfusion of 2 PRBC, presented to [facility] ER because of RUE weakness and Slurred speech. CT of head showed : Subdural Hematoma with midline shift. Pt was admitted to ICU . Neurology and Neurosurgery consulted.In the ICU , pt had 3 episodes of seizure and was intubated initilaly for airway protection and extubated after 24 hours. He was started on Keppra for seizure prevention Due to coagulopathy and Thrombocytopenia patient is very high risk for any neurosurgical procedure , unable to get his numbers up to a safe level despite transfusion of FFP and Platelets. Repeat CT head 12/11 showed stable bleed. patient is neurologically stable, AAOx3 , answering questions appropriately 1. Subdural Hematoma with midline shift stable, neurologically repeat CT head 12/11 showed stable bleed Neurosurgery was consulted . Patient is very high risk for surgical intervention given his coagulopathy cont Keppra for seizure prevention Continue PT/OT Neurology following pt 2. Seizure likely sec to SDH Seziure free since admission Continue Keppra Neurology following Ativan prn for breakthrough seizure EEG showed diffuse slowing 3. ESRD on HD cont with HD Dr Caldwell consulted 4. Liver Cirrhosis hx of Alcoholism cont Propranolol 10mg q 6 5. Thrombocytopenia and Coagulopathy likely sec to Cirrhosis Hematology Dr Lin following pt Pt had received VIT K IV and DDAVP was transfused Platelets and FFP however numbers remain low 6. Anemia , chronic hx of GI Bleed this month - was in [facility] 7. Gram negative bacteremia 2 blood cultures positive for gram negative tu ID consulted Follow up identification and sensitivities On Meropenem, Zosyn and Flagyl renally dosed 8. Hypertension better controlled cont norvasc, diovan, Propranolol to 10 mg q6 and Hydralazine 10 mg tid off Nicardipine drip 9. DVT proph SCD pt has coagulopathy and thrombocytopenia, no anticoag
--- NOTE | 2017-12-14 23:02 | CP.PCM.PN ---
Subjective - Date & Time of Evaluation Date of Evaluation: 12/12/17 Time of Evaluation: 14:00 - Subjective Subjective: Appears comfortable Objective - Vital Signs/Intake and Output Vital Signs (last 24 hours): Temp Pulse Resp BP Pulse Ox 98.6 F 71 17 94/51 L 98 12/14/17 22:00 12/14/17 22:04 12/14/17 22:00 12/14/17 22:04 12/14/17 22:00 Intake and Output: 12/14/17 12/15/17 18:59 06:59 Intake Total 764 64 Output Total 2300 Balance -1536 64 - Medications Medications: Current Medications Acetaminophen (Tylenol 325mg Tab) 650 mg PO Q6 PRN PRN Reason: Headache Last Admin: 12/13/17 12:14 Dose: 650 mg Amlodipine Besylate (Norvasc) 10 mg PO DAILY [facility] Last Admin: 12/14/17 17:01 Dose: 10 mg Calcium Acetate (Phoslo) 667 mg PO TIDWM [facility] Last Admin: 12/14/17 17:01 Dose: 667 mg Cholestyramine Resin (Questran) 4 gm PO DAILY [facility] Last Admin: 12/14/17 13:28 Dose: 4 gm Epoetin Triston (Procrit) 8,000 unit IV MWF [facility] Last Admin: 12/14/17 09:46 Dose: 8,000 unit Hydralazine HCl (Apresoline) 20 mg IV Q6 PRN PRN Reason: Systolic Blood Pressure Hydralazine HCl (Apresoline) 25 mg PO TID [facility] Last Admin: 12/14/17 16:56 Dose: 25 mg Piperacillin Sod/Tazobactam (Sod 2.25 gm/ Sodium Chloride) 100 mls @ 100 mls/ hr IVPB Q8 [facility] PRN Reason: Protocol Last Admin: 12/14/17 17:02 Dose: 100 mls/hr Meropenem 500 mg/ Sodium (Chloride) 100 mls @ 100 mls/hr IVPB Q24H [facility] PRN Reason: Protocol Last Admin: 12/14/17 16:59 Dose: 100 mls/hr Metronidazole 250 mg/ (Miscellaneous) 50 mls @ 50 mls/hr IVPB Q8 [facility] PRN Reason: Protocol Last Admin: 12/14/17 16:58 Dose: 50 mls/hr Levetiracetam (Keppra) 750 mg PO BID [facility] Last Admin: 12/14/17 16:59 Dose: 750 mg Lorazepam (Ativan) 2 mg IVP Q1 PRN PRN Reason: Seizure activity Pantoprazole Sodium (Protonix Ec Tab) 40 mg PO DAILY [facility] Last Admin: 12/14/17 13:28 Dose: 40 mg Propranolol HCl (Inderal) 10 mg PO Q6 [facility] Last Admin: 12/14/17 22:04 Dose: Not Given Sucralfate (Carafate Tab) 1 gm PO BIDAC [facility] Last Admin: 12/14/17 16:57 Dose: 1 gm Valsartan (Diovan) 320 mg PO DAILY [facility] Last Admin: 12/14/17 16:57 Dose: 320 mg Vitamin B Complex/Vit C/Folic Acid (Nephro-Malachi) 1 tab PO DAILY [facility] Last Admin: 12/14/17 13:28 Dose: 1 tab - Labs Labs: 12/14/17 04:40 12/14/17 04:40 PT 16.1 Seconds (9.8-13.1) H 12/13/17 06:55 INR 1.4 (0.9-1.2) H 12/13/17 06:55 APTT 26.6 Seconds (25.6-37.1) 12/13/17 06:55 - Head Exam Head Exam: ATRAUMATIC - Eye Exam Eye Exam: Normal appearance - ENT Exam ENT Exam: Mucous Membranes Dry - Respiratory Exam Respiratory Exam: NORMAL BREATHING PATTERN - Cardiovascular Exam Cardiovascular Exam: +S1, +S2 - GI/Abdominal Exam GI & Abdominal Exam: Normal Bowel Sounds Assessment and Plan (1) Coagulopathy Assessment & Plan: liver disease s.p FFP Status: Acute (2) Thrombocytopenia Assessment & Plan: secondary to liver disease, splenic sequestration s/p plt transfusion Status: Acute (3) Anemia Assessment & Plan: chronic disease and renal disease Status: Acute
--- NOTE | 2017-12-14 23:04 | CP.PCM.PN ---
Subjective - Date & Time of Evaluation Date of Evaluation: 12/14/17 Time of Evaluation: 10:00 - Subjective Subjective: Appears comfortable Objective - Vital Signs/Intake and Output Vital Signs (last 24 hours): Temp Pulse Resp BP Pulse Ox 98.6 F 71 17 94/51 L 98 12/14/17 22:00 12/14/17 22:04 12/14/17 22:00 12/14/17 22:04 12/14/17 22:00 Intake and Output: 12/14/17 12/15/17 18:59 06:59 Intake Total 764 64 Output Total 2300 Balance -1536 64 - Medications Medications: Current Medications Acetaminophen (Tylenol 325mg Tab) 650 mg PO Q6 PRN PRN Reason: Headache Last Admin: 12/13/17 12:14 Dose: 650 mg Amlodipine Besylate (Norvasc) 10 mg PO DAILY [facility] Last Admin: 12/14/17 17:01 Dose: 10 mg Calcium Acetate (Phoslo) 667 mg PO TIDWM [facility] Last Admin: 12/14/17 17:01 Dose: 667 mg Cholestyramine Resin (Questran) 4 gm PO DAILY [facility] Last Admin: 12/14/17 13:28 Dose: 4 gm Epoetin Triston (Procrit) 8,000 unit IV MWF [facility] Last Admin: 12/14/17 09:46 Dose: 8,000 unit Hydralazine HCl (Apresoline) 20 mg IV Q6 PRN PRN Reason: Systolic Blood Pressure Hydralazine HCl (Apresoline) 25 mg PO TID [facility] Last Admin: 12/14/17 16:56 Dose: 25 mg Piperacillin Sod/Tazobactam (Sod 2.25 gm/ Sodium Chloride) 100 mls @ 100 mls/ hr IVPB Q8 [facility] PRN Reason: Protocol Last Admin: 12/14/17 17:02 Dose: 100 mls/hr Meropenem 500 mg/ Sodium (Chloride) 100 mls @ 100 mls/hr IVPB Q24H [facility] PRN Reason: Protocol Last Admin: 12/14/17 16:59 Dose: 100 mls/hr Metronidazole 250 mg/ (Miscellaneous) 50 mls @ 50 mls/hr IVPB Q8 [facility] PRN Reason: Protocol Last Admin: 12/14/17 16:58 Dose: 50 mls/hr Levetiracetam (Keppra) 750 mg PO BID [facility] Last Admin: 12/14/17 16:59 Dose: 750 mg Lorazepam (Ativan) 2 mg IVP Q1 PRN PRN Reason: Seizure activity Pantoprazole Sodium (Protonix Ec Tab) 40 mg PO DAILY [facility] Last Admin: 12/14/17 13:28 Dose: 40 mg Propranolol HCl (Inderal) 10 mg PO Q6 [facility] Last Admin: 12/14/17 22:04 Dose: Not Given Sucralfate (Carafate Tab) 1 gm PO BIDAC [facility] Last Admin: 12/14/17 16:57 Dose: 1 gm Valsartan (Diovan) 320 mg PO DAILY [facility] Last Admin: 12/14/17 16:57 Dose: 320 mg Vitamin B Complex/Vit C/Folic Acid (Nephro-Malachi) 1 tab PO DAILY [facility] Last Admin: 12/14/17 13:28 Dose: 1 tab - Labs Labs: 12/14/17 04:40 12/14/17 04:40 PT 16.1 Seconds (9.8-13.1) H 12/13/17 06:55 INR 1.4 (0.9-1.2) H 12/13/17 06:55 APTT 26.6 Seconds (25.6-37.1) 12/13/17 06:55 - Head Exam Head Exam: ATRAUMATIC - Eye Exam Eye Exam: Normal appearance - ENT Exam ENT Exam: Mucous Membranes Dry - Respiratory Exam Respiratory Exam: NORMAL BREATHING PATTERN - Cardiovascular Exam Cardiovascular Exam: +S1, +S2 - GI/Abdominal Exam GI & Abdominal Exam: Normal Bowel Sounds Assessment and Plan (1) Coagulopathy Assessment & Plan: liver disease s/p ffp Status: Acute (2) Thrombocytopenia Assessment & Plan: liver disease and splenic sequestration s/p platelet transfusion Status: Acute (3) Anemia Assessment & Plan: chronic disease and renal disease Status: Acute
[2017-12-15] MEDS: metroNIDAZOLE 500mg/100ml NS 250 MG in Premixed IV 1 EA IVPB SCH ×3 (00:46→16:46)
--- NOTE | 2017-12-15 02:07 | CON ---
DATE: INFECTIOUS DISEASE CONSULTATION HISTORY OF PRESENT ILLNESS: Patient was a 71-year-old male who was admitted on 12/06/2017 because of a subdural hematoma with midline shift. Patient also has end-stage renal disease, on HD; cirrhosis; thrombocytopenia; anemia and coagulopathy likely secondary to cirrhosis. Initially, the patient was planned for surgery but apparently had coagulopathy including low platelets and the surgery was held back. Patient has had in the past an upper GI bleed, had been last admitted to the hospital at [facility] and was discharged on 11/29/2017. He was diagnosed at that point with esophageal varices. He came to the Emergency Room on 12/06/2017 with left-sided headache and three days of numbness to the right lower and upper extremities with chills and fever on some days. Patient had slurred speech on admission. He is also oliguric. I am presently seeing the patient in regards to Infectious Disease because of fever and chills and because the patient had positive multiple blood cultures for gram-negative rods. We are awaiting the bacterial identification at this point. His white count presently is 5, his hemoglobin 8.5, platelet count is 85. Chemistry today is 135 sodium, 4.3 potassium, chloride is 101, BUN is 63 and creatinine is 10.9. PT is 16.1, INR is 1.6. Head CT is stable, extra-axial fluid collection on the left, no new acute superimposed abnormalities. Carotid ultrasound, right ICA degree of stenosis less than 50%, left ICA degree of stenosis less than 50%. Patient has been having significant amount of diarrhea over the past 3 days but his C. difficile titers are negative x2. PHYSICAL EXAMINATION: GENERAL: Patient is alert, but confused. NECK: Supple. LUNGS: Decreased breath sounds. There are no rales but there is some scattered rhonchi. ABDOMEN: Increased bowel sounds. EXTREMITIES: No CCE. LABORATORY DATA: Microbiology, gram-negative rods in blood, waiting for those results, follow up results. PLAN: At this point in time, patient has been started on Zosyn in a renal adjusted dose and meropenem again in a renal adjusted dose. We will observe carefully especially meropenem in regards to platelet count. For the present time, we will continue with that and IV Flagyl. Baldev Olson MD [facility]
[2017-12-15 05:35] LABS: HEMOGLOBIN 9.1 g/dL (12.0-18.0); MEAN CELL VOLUME 90.5 fl (80.0-94.0); MEAN CORPUSCULAR HGB CONC 33.2 g/dL (33.0-37.0); RBC 3.04 Mil/uL (4.40-5.90); RED CELL DISTRIBUTION WIDTH 18.6 % (11.5-14.5); WHITE BLOOD COUNT 5.3 K/uL (4.8-10.8)
[2017-12-15 06:16] LABS: CALCIUM 8.6 mg/dL (8.4-10.2)
[2017-12-15] MEDS: Multivitamin Vitamin B Complex (Nephro-Vite) Tab PO SCH (08:30)
[2017-12-15] MEDS: Pantoprazole 40 mg EC Tab PO SCH (08:31)
[2017-12-15] MEDS: Cholestyramine 4 gm/Pkt UD PO SCH (08:32)
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
--- NOTE | 2017-12-15 08:45 | CARD ---
APPROVED REPORT EKG Measurement Heart [id number] <Conclusion> Sinus bradycardia Otherwise normal ECG
--- NOTE | 2017-12-15 09:06 | CP.PCM.PN ---
Subjective - Date & Time of Evaluation Date of Evaluation: 12/15/17 Time of Evaluation: 09:00 - Subjective Subjective: Patient seen and examined bedside. feeling better. Awake , alert oriented x 3. No neuro deficits. Hemodynamically stable ,afebrile BP 112/63 HR 74 saturating 100 % on 2 L O2 via NC No acute issues overnight Blood cx reported as E.Coli Diarrhea has improved Objective - Vital Signs/Intake and Output Vital Signs (last 24 hours): Temp Pulse Resp BP Pulse Ox 98.4 F 74 19 112/63 98 12/15/17 08:00 12/15/17 08:34 12/15/17 08:00 12/15/17 08:34 12/15/17 08:00 Intake and Output: 12/15/17 12/15/17 06:59 18:59 Intake Total 226 Balance 226 - Medications Medications: Current Medications Acetaminophen (Tylenol 325mg Tab) 650 mg PO Q6 PRN PRN Reason: Headache Last Admin: 12/13/17 12:14 Dose: 650 mg Amlodipine Besylate (Norvasc) 10 mg PO DAILY [facility] Last Admin: 12/15/17 08:34 Dose: 10 mg Calcium Acetate (Phoslo) 667 mg PO TIDWM [facility] Last Admin: 12/15/17 08:31 Dose: Not Given Cholestyramine Resin (Questran) 4 gm PO DAILY [facility] Last Admin: 12/15/17 08:32 Dose: 4 gm Epoetin Triston (Procrit) 8,000 unit IV MWF [facility] Last Admin: 12/14/17 09:46 Dose: 8,000 unit Hydralazine HCl (Apresoline) 20 mg IV Q6 PRN PRN Reason: Systolic Blood Pressure Hydralazine HCl (Apresoline) 25 mg PO TID [facility] Last Admin: 12/15/17 08:33 Dose: 25 mg Piperacillin Sod/Tazobactam (Sod 2.25 gm/ Sodium Chloride) 100 mls @ 100 mls/ hr IVPB Q8 [facility] PRN Reason: Protocol Last Admin: 12/15/17 00:47 Dose: 100 mls/hr Meropenem 500 mg/ Sodium (Chloride) 100 mls @ 100 mls/hr IVPB Q24H [facility] PRN Reason: Protocol Last Admin: 12/14/17 16:59 Dose: 100 mls/hr Metronidazole 250 mg/ (Miscellaneous) 50 mls @ 50 mls/hr IVPB Q8 [facility] PRN Reason: Protocol Last Admin: 12/15/17 00:46 Dose: 50 mls/hr Levetiracetam (Keppra) 750 mg PO BID [facility] Last Admin: 12/15/17 08:30 Dose: 750 mg Lorazepam (Ativan) 2 mg IVP Q1 PRN PRN Reason: Seizure activity Pantoprazole Sodium (Protonix Ec Tab) 40 mg PO DAILY [facility] Last Admin: 12/15/17 08:31 Dose: 40 mg Propranolol HCl (Inderal) 10 mg PO Q6 [facility] Last Admin: 12/15/17 04:00 Dose: Not Given Sucralfate (Carafate Tab) 1 gm PO BIDAC [facility] Last Admin: 12/15/17 07:56 Dose: 1 gm Valsartan (Diovan) 320 mg PO DAILY [facility] Last Admin: 12/15/17 08:33 Dose: 320 mg Vitamin B Complex/Vit C/Folic Acid (Nephro-Malachi) 1 tab PO DAILY [facility] Last Admin: 12/15/17 08:30 Dose: 1 tab - Labs Labs: 12/15/17 04:40 12/15/17 04:40 PT 16.1 Seconds (9.8-13.1) H 12/13/17 06:55 INR 1.4 (0.9-1.2) H 12/13/17 06:55 APTT 26.6 Seconds (25.6-37.1) 12/13/17 06:55 - Constitutional Appears: Non-toxic, No Acute Distress - Head Exam Head Exam: ATRAUMATIC, NORMAL INSPECTION, NORMOCEPHALIC - Eye Exam Eye Exam: EOMI, Normal appearance, PERRL Pupil Exam: NORMAL ACCOMODATION - ENT Exam ENT Exam: Mucous Membranes Moist, Normal Exam - Neck Exam Neck Exam: Full ROM, Normal Inspection - Respiratory Exam Respiratory Exam: Clear to Ausculation Bilateral. absent: Rales, Rhonchi, Wheezes - Cardiovascular Exam Cardiovascular Exam: REGULAR RHYTHM, RRR, +S1, +S2. absent: JVD - GI/Abdominal Exam GI & Abdominal Exam: Soft, Normal Bowel Sounds. absent: Distended, Guarding, Rebound - Rectal Exam Rectal Exam: Deferred - Extremities Exam Extremities Exam: Full ROM, Normal Capillary Refill, Normal Inspection. absent : Pedal Edema Additional comments: SHERIE AVF - Back Exam Back Exam: NORMAL INSPECTION - Neurological Exam Neurological Exam: Alert, Awake, CN II-XII Intact, Oriented x3 - Psychiatric Exam Psychiatric exam: Normal Affect, Normal Mood - Skin Skin Exam: Dry, Intact, Normal Color, Warm Assessment and Plan - Assessment and Plan (Free Text) Assessment: 72 year old male with hx of ESRD on HD MWF, liver cirrhosis with Upper GI bleed , last admitted to [facility] with upper GI bleed from esophageal Varices and discharged 11/29/17 after EGD and Transfusion of 2 PRBC, presented to [facility] ER because of RUE weakness and Slurred speech. CT of head showed : Subdural Hematoma with midline shift. Pt was admitted to ICU . Neurology and Neurosurgery consulted.In the ICU , pt had 3 episodes of seizure and was intubated initilaly for airway protection and extubated after 24 hours. He was started on Keppra for seizure prevention Due to coagulopathy and Thrombocytopenia patient is very high risk for any neurosurgical procedure , unable to get his numbers up to a safe level despite transfusion of FFP and Platelets. Repeat CT head 12/11 showed stable bleed. patient is neurologically stable, AAOx3 , answering questions appropriately Diarrhea much improved Blood cx positive for E. Coli 1. Subdural Hematoma with midline shift stable, neurologically repeat CT head 12/11 showed stable bleed Neurosurgery was consulted . Patient is very high risk for surgical intervention given his coagulopathy cont Keppra for seizure prevention Continue PT/OT Neurology following pt 2. Seizure likely sec to SDH Seizure free since admission Continue Keppra Neurology following Ativan prn for breakthrough seizure EEG showed diffuse slowing 3. ESRD on HD cont with HD Dr Caldwell consulted had HD yesterday 4. Liver Cirrhosis hx of Alcoholism cont Propranolol 10mg q 6 5. Thrombocytopenia and Coagulopathy likely sec to Cirrhosis Hematology Dr Lin following pt Pt had received VIT K IV and DDAVP was transfused Platelets and FFP however numbers remain low 6. Anemia , chronic hx of GI Bleed this month - was in [facility] 7. E.coli bacteremia 2 blood cultures positive for E.Coli Echo showed no vegetations ID consulted On Meropenem since 12/13 Zosyn and Flagyl renally dosed 8. Hypertension better controlled cont norvasc, diovan, Propranolol to 10 mg q6 and Hydralazine 10 mg tid off Nicardipine drip 9. Diarrhea improved C.diff negative on flagyl empirically 10. DVT proph SCD pt has coagulopathy and thrombocytopenia, no anticoag
--- NOTE | 2017-12-15 12:14 | CP.PCM.PN ---
Subjective - Date & Time of Evaluation Date of Evaluation: 12/15/17 Time of Evaluation: 12:12 - Subjective Subjective: Patient sitting up in the chair His at the bedside Patient feeling much better he completed hemodialysis yesterday Vital signs stable and noted. Objective - Vital Signs/Intake and Output Vital Signs (last 24 hours): Temp Pulse Resp BP Pulse Ox 98.4 F 74 16 105/61 100 12/15/17 08:00 12/15/17 12:11 12/15/17 10:00 12/15/17 12:11 12/15/17 10:00 Intake and Output: 12/15/17 12/15/17 06:59 18:59 Intake Total 226 250 Balance 226 250 - Medications Medications: Current Medications Acetaminophen (Tylenol 325mg Tab) 650 mg PO Q6 PRN PRN Reason: Headache Last Admin: 12/13/17 12:14 Dose: 650 mg Amlodipine Besylate (Norvasc) 10 mg PO DAILY [facility] Last Admin: 12/15/17 08:34 Dose: 10 mg Calcium Acetate (Phoslo) 667 mg PO TIDWM [facility] Last Admin: 12/15/17 12:10 Dose: 667 mg Cholestyramine Resin (Questran) 4 gm PO DAILY [facility] Last Admin: 12/15/17 08:32 Dose: 4 gm Epoetin Triston (Procrit) 8,000 unit IV MWF [facility] Last Admin: 12/14/17 09:46 Dose: 8,000 unit Hydralazine HCl (Apresoline) 20 mg IV Q6 PRN PRN Reason: Systolic Blood Pressure Hydralazine HCl (Apresoline) 25 mg PO TID [facility] Last Admin: 12/15/17 12:11 Dose: 25 mg Piperacillin Sod/Tazobactam (Sod 2.25 gm/ Sodium Chloride) 100 mls @ 100 mls/ hr IVPB Q8 [facility] PRN Reason: Protocol Last Admin: 12/15/17 11:17 Dose: 100 mls/hr Meropenem 500 mg/ Sodium (Chloride) 100 mls @ 100 mls/hr IVPB Q24H [facility] PRN Reason: Protocol Last Admin: 12/14/17 16:59 Dose: 100 mls/hr Metronidazole 250 mg/ (Miscellaneous) 50 mls @ 50 mls/hr IVPB Q8 [facility] PRN Reason: Protocol Last Admin: 12/15/17 11:15 Dose: 50 mls/hr Levetiracetam (Keppra) 750 mg PO BID [facility] Last Admin: 12/15/17 08:30 Dose: 750 mg Lorazepam (Ativan) 2 mg IVP Q1 PRN PRN Reason: Seizure activity Pantoprazole Sodium (Protonix Ec Tab) 40 mg PO DAILY [facility] Last Admin: 12/15/17 08:31 Dose: 40 mg Propranolol HCl (Inderal) 10 mg PO Q6 [facility] Last Admin: 12/15/17 11:15 Dose: 10 mg Sucralfate (Carafate Tab) 1 gm PO BIDAC [facility] Last Admin: 12/15/17 07:56 Dose: 1 gm Valsartan (Diovan) 320 mg PO DAILY [facility] Last Admin: 12/15/17 08:33 Dose: 320 mg Vitamin B Complex/Vit C/Folic Acid (Nephro-Malachi) 1 tab PO DAILY [facility] Last Admin: 12/15/17 08:30 Dose: 1 tab - Labs Labs: 12/15/17 04:40 12/15/17 04:40 PT 16.1 Seconds (9.8-13.1) H 12/13/17 06:55 INR 1.4 (0.9-1.2) H 12/13/17 06:55 APTT 26.6 Seconds (25.6-37.1) 12/13/17 06:55 - Constitutional Appears: No Acute Distress - ENT Exam ENT Exam: Mucous Membranes Moist - Respiratory Exam Respiratory Exam: absent: Chest Wall Tenderness - Cardiovascular Exam Cardiovascular Exam: REGULAR RHYTHM. absent: Rubs - GI/Abdominal Exam GI & Abdominal Exam: Soft, Normal Bowel Sounds - Extremities Exam Extremities Exam: absent: Calf Tenderness - Back Exam Back Exam: absent: CVA tenderness (L), CVA tenderness (R) - Neurological Exam Neurological Exam: Alert - Psychiatric Exam Psychiatric exam: Normal Affect Assessment and Plan (1) End stage renal failure on dialysis Assessment & Plan: End stage renal disease on maintenance hemodialysis Thursday. He is scheduled for tomorrow. Patient stable vital signs are stable Patient has been followed by neurology as well. 71 years old male with hx of ESRD on HD MWF , liver cirrhosis with Upper GI bleed , last admitted to the [facility] discharged on Thursday with Dx of upper GI bleed from esophageal Varices. EGD and Transfusion of 2 PRBC was done prior to DC. The patient was was brought to our ED bec of RUE weakness and Slurred speech. CT of head showed : Subdural Hematoma with midline shift. Pt was admitted to ICU . Neurology and Neurosurgery consulted . In the ICU , pt had 3 episodes of seizure. Due to pt's hematological problem ( coagulopathy and Thrombocytopenia ) , he is very high risk for any neurosurgical procedure , unable to get his numbers up to a safe level despite transfusion of FFP and Platelets Status: Acute (2) Anemia Status: Acute (3) Subdural hemorrhage Status: Acute (4) Thrombocytopenia Status: Acute
[2017-12-15] MEDS: Meropenem 500 MG in Sodium Chloride 0.9% 100 ML IVPB SCH (16:48)
[2017-12-15] MEDS: Piperacillin/Tazobact 2.25 GM in Sodium Chloride 0.9% 50 ML IVPB SCH (16:49)
--- NOTE | 2017-12-15 16:54 | CT ---
PROCEDURE: CT HEAD WITHOUT CONTRAST. HISTORY: subdural hematoma COMPARISON: Multiple prior CT head without contrast, the most recent from 12/11/2017 TECHNIQUE: Axial computed tomography images were obtained through the head/brain without intravenous contrast. Radiation dose: Total exam DLP = 732.50 mGy-cm. This CT exam was performed using one or more of the following dose reduction techniques: Automated exposure control, adjustment of the mA and/or kV according to patient size, and/or use of iterative reconstruction technique. FINDINGS: HEMORRHAGE: No intracranial hemorrhage. BRAIN: There is interval mild decrease in size of known left frontal convexity chronic subdural hematoma now measuring 1.3 cm in maximum width with resultant mild mass effect on the frontal lobe without midline shift or herniation. There is no territorial infarction. VENTRICLES: There is mild age-related global parenchymal volume loss and proportionate enlargement of the ventricles and cortical sulci. CALVARIUM: The skull base and calvarium are normal. PARANASAL SINUSES: Predominantly clear. MASTOID AIR CELLS: Predominantly clear. OTHER FINDINGS: None. IMPRESSION: 1. No acute intracranial abnormality. 2. Interval mild decrease in size of known left frontal chronic subdural hematoma now measuring 1.3 cm in depth width resultant mild mass effect on the frontal lobe without midline shift or herniation.
--- NOTE | 2017-12-15 21:08 | CP.PCM.PN ---
Subjective - Date & Time of Evaluation Date of Evaluation: 12/15/17 Time of Evaluation: 11:00 - Subjective Subjective: Feeling better, reports eating more. Objective - Vital Signs/Intake and Output Vital Signs (last 24 hours): Temp Pulse Resp BP Pulse Ox 98.0 F 75 14 98/51 L 100 12/15/17 16:00 12/15/17 17:45 12/15/17 16:00 12/15/17 17:45 12/15/17 16:00 Intake and Output: 12/15/17 12/16/17 18:59 06:59 Intake Total 700 Output Total 500 Balance 200 - Medications Medications: Current Medications Acetaminophen (Tylenol 325mg Tab) 650 mg PO Q6 PRN PRN Reason: Headache Last Admin: 12/13/17 12:14 Dose: 650 mg Amlodipine Besylate (Norvasc) 10 mg PO DAILY [facility] Last Admin: 12/15/17 08:34 Dose: 10 mg Calcium Acetate (Phoslo) 667 mg PO TIDWM [facility] Last Admin: 12/15/17 16:48 Dose: 667 mg Cholestyramine Resin (Questran) 4 gm PO DAILY [facility] Last Admin: 12/15/17 08:32 Dose: 4 gm Epoetin Triston (Procrit) 8,000 unit IV MWF [facility] Last Admin: 12/14/17 09:46 Dose: 8,000 unit Hydralazine HCl (Apresoline) 20 mg IV Q6 PRN PRN Reason: Systolic Blood Pressure Hydralazine HCl (Apresoline) 25 mg PO TID [facility] Last Admin: 12/15/17 16:45 Dose: Not Given Meropenem 500 mg/ Sodium (Chloride) 100 mls @ 100 mls/hr IVPB Q24H [facility] PRN Reason: Protocol Last Admin: 12/15/17 16:48 Dose: 100 mls/hr Metronidazole 250 mg/ (Miscellaneous) 50 mls @ 50 mls/hr IVPB Q8 [facility] PRN Reason: Protocol Last Admin: 12/15/17 16:46 Dose: 50 mls/hr Piperacillin Sod/Tazobactam (Sod 2.25 gm/ Sodium Chloride) 50 mls @ 50 mls/hr IVPB Q8 [facility] PRN Reason: Protocol Last Admin: 12/15/17 16:49 Dose: 50 mls/hr Levetiracetam (Keppra) 750 mg PO BID [facility] Last Admin: 12/15/17 16:47 Dose: 750 mg Lorazepam (Ativan) 2 mg IVP Q1 PRN PRN Reason: Seizure activity Pantoprazole Sodium (Protonix Ec Tab) 40 mg PO DAILY [facility] Last Admin: 12/15/17 08:31 Dose: 40 mg Propranolol HCl (Inderal) 10 mg PO Q6 [facility] Last Admin: 12/15/17 16:47 Dose: Not Given Sucralfate (Carafate Tab) 1 gm PO BIDAC [facility] Last Admin: 12/15/17 16:46 Dose: 1 gm Valsartan (Diovan) 320 mg PO DAILY [facility] Last Admin: 12/15/17 08:33 Dose: 320 mg Vitamin B Complex/Vit C/Folic Acid (Nephro-Malachi) 1 tab PO DAILY [facility] Last Admin: 12/15/17 08:30 Dose: 1 tab - Labs Labs: 12/15/17 04:40 12/15/17 04:40 PT 16.1 Seconds (9.8-13.1) H 12/13/17 06:55 INR 1.4 (0.9-1.2) H 12/13/17 06:55 APTT 26.6 Seconds (25.6-37.1) 12/13/17 06:55 - Head Exam Head Exam: ATRAUMATIC - Eye Exam Eye Exam: Normal appearance - ENT Exam ENT Exam: Mucous Membranes Dry - Respiratory Exam Respiratory Exam: NORMAL BREATHING PATTERN - Cardiovascular Exam Cardiovascular Exam: +S1, +S2 - GI/Abdominal Exam GI & Abdominal Exam: Normal Bowel Sounds Assessment and Plan (1) Coagulopathy Assessment & Plan: liver cirrhosis s/p ffp Status: Acute (2) Thrombocytopenia Assessment & Plan: liver disease, splenic sequestration s/p platelet transfusion Status: Acute (3) Anemia Assessment & Plan: chronic disease, renal disease Status: Acute
[2017-12-16] MEDS: metroNIDAZOLE 500mg/100ml NS 250 MG in Premixed IV 1 EA IVPB SCH ×2 (00:34→09:36)
[2017-12-16] MEDS: Piperacillin/Tazobact 2.25 GM in Sodium Chloride 0.9% 50 ML IVPB SCH ×2 (00:35→09:15)
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
[2017-12-16 05:34] LABS: MEAN CORPUSCULAR HGB CONC 33.3 g/dL (33.0-37.0); RBC 3.02 Mil/uL (4.40-5.90); RED CELL DISTRIBUTION WIDTH 18.4 % (11.5-14.5); WHITE BLOOD COUNT 5.4 K/uL (4.8-10.8)
[2017-12-16 06:01] LABS: CALCIUM 8.5 mg/dL (8.4-10.2)
--- NOTE | 2017-12-16 08:56 | CP.PCM.PN ---
Subjective - Date & Time of Evaluation Date of Evaluation: 12/16/17 Time of Evaluation: 08:53 - Subjective Subjective: Mr. Melvin was seen and examined at the bedside in ICU. He is alert, oriented. He denies any blurred vision, dizziness, lightheadedness, diplopia, nausea, or vomiting. He is able to follow simple commands.He is currently receiving dialysis. CT of the head 12/15/2017 showed no acute intracranila abnormality. Interval mild decrease in size of known left frontal cgronic subdural hematoma now measuring 1.3 cm in depth with width resultant mild mass effect on the frontal lobe without midline shift or herniation.There was no untoward events overnight. Objective - Vital Signs/Intake and Output Vital Signs (last 24 hours): Temp Pulse Resp BP Pulse Ox 98.6 F 76 31 H 111/57 L 96 12/16/17 08:00 12/16/17 08:00 12/16/17 08:00 12/16/17 08:00 12/16/17 08:00 Intake and Output: 12/16/17 12/16/17 06:59 18:59 Intake Total 340 Balance 340 - Medications Medications: Current Medications Acetaminophen (Tylenol 325mg Tab) 650 mg PO Q6 PRN PRN Reason: Headache Last Admin: 12/13/17 12:14 Dose: 650 mg Amlodipine Besylate (Norvasc) 10 mg PO DAILY [facility] Last Admin: 12/15/17 08:34 Dose: 10 mg Calcium Acetate (Phoslo) 667 mg PO TIDWM [facility] Last Admin: 12/15/17 16:48 Dose: 667 mg Cholestyramine Resin (Questran) 4 gm PO DAILY [facility] Last Admin: 12/15/17 08:32 Dose: 4 gm Epoetin Triston (Procrit) 8,000 unit IV MWF [facility] Last Admin: 12/14/17 09:46 Dose: 8,000 unit Hydralazine HCl (Apresoline) 20 mg IV Q6 PRN PRN Reason: Systolic Blood Pressure Hydralazine HCl (Apresoline) 25 mg PO TID [facility] Last Admin: 12/15/17 16:45 Dose: Not Given Meropenem 500 mg/ Sodium (Chloride) 100 mls @ 100 mls/hr IVPB Q24H [facility] PRN Reason: Protocol Last Admin: 12/15/17 16:48 Dose: 100 mls/hr Metronidazole 250 mg/ (Miscellaneous) 50 mls @ 50 mls/hr IVPB Q8 [facility] PRN Reason: Protocol Last Admin: 12/16/17 00:34 Dose: 50 mls/hr Piperacillin Sod/Tazobactam (Sod 2.25 gm/ Sodium Chloride) 50 mls @ 50 mls/hr IVPB Q8 [facility] PRN Reason: Protocol Last Admin: 12/16/17 00:35 Dose: 50 mls/hr Levetiracetam (Keppra) 750 mg PO BID [facility] Last Admin: 12/15/17 16:47 Dose: 750 mg Lorazepam (Ativan) 2 mg IVP Q1 PRN PRN Reason: Seizure activity Pantoprazole Sodium (Protonix Ec Tab) 40 mg PO DAILY [facility] Last Admin: 12/15/17 08:31 Dose: 40 mg Propranolol HCl (Inderal) 10 mg PO Q6 [facility] Last Admin: 12/16/17 04:02 Dose: Not Given Sucralfate (Carafate Tab) 1 gm PO BIDAC [facility] Last Admin: 12/15/17 16:46 Dose: 1 gm Valsartan (Diovan) 320 mg PO DAILY [facility] Last Admin: 12/15/17 08:33 Dose: 320 mg Vitamin B Complex/Vit C/Folic Acid (Nephro-Malachi) 1 tab PO DAILY [facility] Last Admin: 12/15/17 08:30 Dose: 1 tab - Labs Labs: 12/16/17 04:40 12/16/17 04:40 PT 16.1 Seconds (9.8-13.1) H 12/13/17 06:55 INR 1.4 (0.9-1.2) H 12/13/17 06:55 APTT 26.6 Seconds (25.6-37.1) 12/13/17 06:55 - Constitutional Appears: No Acute Distress - Head Exam Head Exam: NORMAL INSPECTION - Neurological Exam Neurological Exam: Alert, Awake Neuro motor strength exam: Left Upper Extremity: 5, Right Upper Extremity: 5, Left Lower Extremity: 5, Right Lower Extremity: 5 Additional comments: Neurological unchanged from previous examination. Assessment and Plan (1) Seizure Assessment & Plan: Case discussed with Dr. Mcguire, continue all current medical, physical, occupational therapies. Recommend blood pressure control. There is no new recommendations from neurology. Status: Acute
[2017-12-16] MEDS: Multivitamin Vitamin B Complex (Nephro-Vite) Tab PO SCH (09:14)
[2017-12-16] MEDS: Cholestyramine 4 gm/Pkt UD PO SCH (09:15)
--- NOTE | 2017-12-16 10:46 | CP.CCUPN ---
<Aron Murry - Last Filed: 12/16/17 11:32> CCU Subjective - Physician Review Subjective (Free Text): Pt. seen during a.m rounds and discussed with Dr. Culver. Overnight events reviewed. Pt. receiving dialysis. On ROS, Pt. denies any headache, changes in vision, shortness of breath, weakness, chest pain, abdominal pain, nausea, vomiting, or constipation. 12/16/17 9:45 CCU Objective - Vital Signs / Intake & Output Vital Signs (Last 4 hours): Vital Signs Temp Pulse Resp BP Pulse Ox 12/16/17 08:00 98.6 F 76 31 H 111/57 L 96 Intake and Output (Last 8hrs): Intake & Output 12/15/17 12/16/17 12/16/17 22:59 06:59 14:59 Intake Total 220 220 Balance 220 220 Weight 135 lb Intake: Intake, Piggyback 100 Oral 220 120 Other: # Voids Urine, Voided 3 # Bowel Movements 2 4 - Physical Exam Head: Positive for: Atraumatic, Normocephalic Pupils: Positive for: PERRL Extroacular Muscles: Positive for: EOMI Mouth: Positive for: Moist Mucous Membranes Neck: Positive for: Normal Range of Motion Respiratory/Chest: Positive for: Clear to Auscultation, Good Air Exchange Cardiovascular: Positive for: Regular Rate and Rhythm, Normal S1, S2 Abdomen: Negative for: Tenderness, Distention Upper Extremity: Positive for: Other (left arm fistula) Lower Extremity: Positive for: Normal Inspection. Negative for: Edema Neurological: Positive for: GCS=15, CN II-XII Intact, Speech Normal Skin: Positive for: Warm, Dry, Normal Color Psychiatric: Positive for: Alert, Oriented x 3, Normal Mood - Medications Active Medications: Active Medications Generic Name Dose Route Start Last Admin Trade Name Freq PRN Reason Stop Dose Admin Acetaminophen 650 mg 12/09/17 22:17 12/13/17 12:14 Tylenol 325mg Tab PO 650 mg Q6 PRN Administration Headache Amlodipine Besylate 10 mg 12/10/17 09:00 12/15/17 08:34 Norvasc PO 10 mg DAILY [facility] Administration Calcium Acetate 667 mg 12/08/17 13:00 12/15/17 16:48 Phoslo PO 667 mg TIDWM [facility] Administration Cholestyramine Resin 4 gm 12/14/17 11:00 12/16/17 09:15 Questran PO 4 gm DAILY [facility] Administration Epoetin Triston 8,000 unit 12/11/17 10:09 12/14/17 09:46 Procrit IV 8,000 unit MWF [facility] Administration Hydralazine HCl 20 mg 12/10/17 17:53 Apresoline IV Q6 PRN Systolic Blood Pressure Hydralazine HCl 25 mg 12/12/17 17:15 12/16/17 09:11 Apresoline PO Not Given TID [facility] Meropenem 500 mg/ Sodium 100 mls @ 100 mls/hr 12/13/17 16:45 12/15/17 16:48 Chloride IVPB 100 mls/hr Q24H [facility] Administration Protocol Metronidazole 250 mg/ 50 mls @ 50 mls/hr 12/14/17 17:00 12/16/17 09:36 Miscellaneous IVPB 50 mls/hr Q8 [facility] Administration Protocol Piperacillin Sod/Tazobactam 50 mls @ 50 mls/hr 12/15/17 17:00 12/16/17 09:15 Sod 2.25 gm/ Sodium Chloride IVPB 50 mls/hr Q8 [facility] Administration Protocol Levetiracetam 750 mg 12/12/17 17:00 12/16/17 09:14 Keppra PO 750 mg BID [facility] Administration Lorazepam 2 mg 12/08/17 12:37 Ativan IVP Q1 PRN Seizure activity Pantoprazole Sodium 40 mg 12/09/17 09:00 12/15/17 08:31 Protonix Ec Tab PO 40 mg DAILY [facility] Administration Propranolol HCl 10 mg 12/10/17 22:00 12/16/17 09:13 Inderal PO Not Given Q6 [facility] Sucralfate 1 gm 12/08/17 16:30 12/16/17 09:12 Carafate Tab PO 1 gm BIDAC [facility] Administration Valsartan 320 mg 12/09/17 09:00 12/15/17 08:33 Diovan PO 320 mg DAILY [facility] Administration Vitamin B Complex/Vit C/Folic Acid 1 tab 12/11/17 09:00 12/16/17 09:14 Nephro-Malachi PO 1 tab DAILY [facility] Administration - Patient Studies Lab Studies: Microbiology Studies 12/15/17 08:25 Blood Culture - Preliminary Blood NO GROWTH AFTER 24 HOURS 12/14/17 14:10 Ova and Parasite Concentrate Exam - Final Rectum 12/12/17 21:26 Blood Culture - Final Blood-Venous Escherichia Coli Gram Stain - Final 12/12/17 21:00 Blood Culture - Final Blood-Venous Escherichia Coli Gram Stain - Final Lab Studies 12/16/17 12/16/17 Range/Units 04:40 04:40 WBC 5.4 (4.8-10.8) K/uL RBC 3.02 L (4.40-5.90) Mil/uL Hgb 9.0 L (12.0-18.0) g/dL Hct 27.2 L (35.0-51.0) % MCV 90.0 (80.0-94.0) fl MCH 30.0 (27.0-31.0) pg MCHC 33.3 (33.0-37.0) g/dL RDW 18.4 H (11.5-14.5) % Plt Count 90 L (130-400) K/uL Sodium 134 (132-148) mmol/l Potassium 4.0 (3.6-5.0) MMOL/L Chloride 102 (98-107) mmol/L Carbon Dioxide 16 L (22-30) mmol/L Anion Gap 20 (10-20) BUN 68 H (9-20) mg/dl Creatinine 9.4 H* D (0.8-1.5) mg/dl Est GFR ( Amer) 7 Est GFR (Non-Af Amer) 6 Random Glucose 105 (75-110) mg/dL Calcium 8.5 (8.4-10.2) mg/dL Laboratory Results - last 24 hr 12/16/17 12/16/17 04:40 04:40 WBC 5.4 RBC 3.02 L Hgb 9.0 L Hct 27.2 L MCV 90.0 MCH 30.0 MCHC 33.3 RDW 18.4 H Plt Count 90 L Sodium 134 Potassium 4.0 Chloride 102 Carbon Dioxide 16 L Anion Gap 20 BUN 68 H Creatinine 9.4 H* D Est GFR ( Amer) 7 Est GFR (Non-Af Amer) 6 Random Glucose 105 Calcium 8.5 Fingerstick Blood Sugar Results: 106 Review of Systems - Review of Systems Review of Systems: See HPI Critical Care Progress Note - Nutrition Nutrition: Nutrition Category Date Time Status Heart Healthy Diet [DIET] Diets 12/16/17 Breakfast Active Assessment/Plan - Assessment and Plan (Free Text) Plan: 71 y.o. male admitted for subdural hematoma who subsequently developed seizures currently on hemodialysis for his CKD and spiking fevers. Subdural Hematoma- Mass effect resolving 1- No anticoagulation 2- Follow recommendations of Neurology 3- PT/OT 4- Tylenol for headaches 5- Repeat CT head to monitor for resolution Seizures- of unclear etiology most likely due to subdural hematoma 1- Keppra 750mg BID 2- Ativan PRN for breakthrough seizure Sepsis- Afebrile last 24 hrs 1- E.coli anuradha initial BCx 2- Repeat BCX final pending 3- c/w Meropenem 4- c/w Zosyn 5- Cosider d/c of Flagyl 6- Input Dr. [place] recommendations HTN- Controled 1- Diovan 320mg daily 2- Amlodipine 10mg 3- Propranolol 10mg po q6 4- Hydralazine 25mg TID CKD- on HD MWF 1- Phoslo 667mg with each meal 2- Nephrology Anemia- H/H of 08/12- Chronic likely due to CKD 1- Procrit 8000 IV MWF Diet 1- Heart Healthy GI prophlaxis 1- Protonix 40mg 2- Sucralfate 1gm PO BIDAC DVT prophylaxis 1- SCD only given Subdural hematoma Code status 1- Full code <Heath Culver - Last Filed: 12/16/17 13:52> CCU Subjective - Physician Review Subjective (Free Text): Attestation: Patient seen and examined at the bedside with Resident Dr. Justyna Murry; and I agree with his outline of plans and management documented above as discussed on AM rounds reflecting my review of all applicable clinical data, and participation in the care of the patient throughout the day in ICU; December 16, 2017.
--- NOTE | 2017-12-16 11:28 | CP.PCM.PN ---
Subjective - Date & Time of Evaluation Date of Evaluation: 12/16/17 Time of Evaluation: 10:25 - Subjective Subjective: Dialysis note He was seen on hemodialysis. Patient is in bed Awake and conscious feeling good I discuss the dialysis orders with dialysis nurse at the bedside. Sodium bath 138 Potassium bath 2 mEq Bicarbonate bath 34 Ultrafiltration about 1500 mL as tolerated Patient is being dialyzed from AV fistula. Vital signs stable Chest no rales Heart no rubs Abdomen soft Extremity no edema Impression and plan Continue hemodialysis as scheduled right now Continue neurological follow-up as noted. End stage renal disease on maintenance hemodialysis Thursday. He is scheduled for tomorrow. Patient stable vital signs are stable Patient has been followed by neurology as well. 71 years old male with hx of ESRD on HD MWF , liver cirrhosis with Upper GI bleed , last admitted to the [facility] discharged on Thursday with Dx of upper GI bleed from esophageal Varices. EGD and Transfusion of 2 PRBC was done prior to DC. The patient was was brought to our ED bec of RUE weakness and Slurred speech. CT of head showed : Subdural Hematoma with midline shift. Pt was admitted to ICU . Neurology and Neurosurgery consulted . In the ICU , pt had 3 episodes of seizure. Due to pt's hematological problem ( coagulopathy and Thrombocytopenia ) , he is very high risk for any neurosurgical procedure , unable to get his numbers up to a safe level despite transfusion of FFP and Platelets Objective - Vital Signs/Intake and Output Vital Signs (last 24 hours): Temp Pulse Resp BP Pulse Ox 98.6 F 75 31 H 99/55 L 96 12/16/17 08:00 12/16/17 10:00 12/16/17 08:00 12/16/17 10:00 12/16/17 08:00 Intake and Output: 12/16/17 12/16/17 06:59 18:59 Intake Total 340 200 Balance 340 200 - Medications Medications: Current Medications Acetaminophen (Tylenol 325mg Tab) 650 mg PO Q6 PRN PRN Reason: Headache Last Admin: 12/13/17 12:14 Dose: 650 mg Amlodipine Besylate (Norvasc) 10 mg PO DAILY [facility] Last Admin: 12/15/17 08:34 Dose: 10 mg Calcium Acetate (Phoslo) 667 mg PO TIDWM [facility] Last Admin: 12/15/17 16:48 Dose: 667 mg Cholestyramine Resin (Questran) 4 gm PO DAILY [facility] Last Admin: 12/16/17 09:15 Dose: 4 gm Epoetin Triston (Procrit) 8,000 unit IV MWF [facility] Last Admin: 12/14/17 09:46 Dose: 8,000 unit Hydralazine HCl (Apresoline) 20 mg IV Q6 PRN PRN Reason: Systolic Blood Pressure Hydralazine HCl (Apresoline) 25 mg PO TID [facility] Last Admin: 12/16/17 09:11 Dose: Not Given Meropenem 500 mg/ Sodium (Chloride) 100 mls @ 100 mls/hr IVPB Q24H SAMAN PRN Reason: Protocol Last Admin: 12/15/17 16:48 Dose: 100 mls/hr Metronidazole 250 mg/ (Miscellaneous) 50 mls @ 50 mls/hr IVPB Q8 SAMAN PRN Reason: Protocol Last Admin: 12/16/17 09:36 Dose: 50 mls/hr Piperacillin Sod/Tazobactam (Sod 2.25 gm/ Sodium Chloride) 50 mls @ 50 mls/hr IVPB Q8 [facility] PRN Reason: Protocol Last Admin: 12/16/17 09:15 Dose: 50 mls/hr Levetiracetam (Keppra) 750 mg PO BID [facility] Last Admin: 12/16/17 09:14 Dose: 750 mg Lorazepam (Ativan) 2 mg IVP Q1 PRN PRN Reason: Seizure activity Pantoprazole Sodium (Protonix Ec Tab) 40 mg PO DAILY [facility] Last Admin: 12/15/17 08:31 Dose: 40 mg Propranolol HCl (Inderal) 10 mg PO Q6 [facility] Last Admin: 12/16/17 09:13 Dose: Not Given Sucralfate (Carafate Tab) 1 gm PO BIDAC [facility] Last Admin: 12/16/17 09:12 Dose: 1 gm Valsartan (Diovan) 320 mg PO DAILY [facility] Last Admin: 12/15/17 08:33 Dose: 320 mg Vitamin B Complex/Vit C/Folic Acid (Nephro-Malachi) 1 tab PO DAILY [facility] Last Admin: 12/16/17 09:14 Dose: 1 tab - Labs Labs: 12/16/17 04:40 12/16/17 04:40 PT 16.1 Seconds (9.8-13.1) H 01/28/18 06:55 INR 1.4 (0.9-1.2) H 12/13/17 06:55 APTT 26.6 Seconds (25.6-37.1) 12/13/17 06:55 Assessment and Plan (1) End stage renal failure on dialysis Status: Acute (2) Anemia Status: Acute (3) Subdural hemorrhage Status: Acute (4) Thrombocytopenia Status: Acute
[2017-12-16 12:13] VITALS: RESP 19; TEMP 98.5; O2SAT 99
[2017-12-16 15:50] VITALS: PULSE 82
[2017-12-16] MEDS: Epoetin Alfa 20000 UNIT/ML Inj IV SCH (15:59)
[2017-12-16 16:00] VITALS: BP 113/68
[2017-12-16] MEDS: Pantoprazole 40 mg EC Tab PO SCH (16:00)
--- NOTE | 2017-12-16 22:32 | CP.PCM.DIS ---
Provider - Provider Date of Admission: 12/06/17 03:37 Attending physician: Billy Sargent Primary care physician: Dr. Caldwell Consults: Neurology neurosurgery Nephrology OID podiatry hematology Time Spent in preparation of Discharge (in minutes): 20 Hospital Course - Lab Results Lab Results: Micro Results 12/15/17 08:25 Blood Blood Culture - Preliminary NO GROWTH AFTER 24 HOURS 12/14/17 14:10 Rectum Ova and Parasite Concentrate Exam - Final 12/12/17 21:26 Blood-Venous Blood Culture - Final Escherichia Coli 12/12/17 21:26 Blood-Venous Gram Stain - Final 12/12/17 21:00 Blood-Venous Blood Culture - Final Escherichia Coli 12/12/17 21:00 Blood-Venous Gram Stain - Final 12/06/17 06:41 Blood-Venous Blood Culture - Final NO GROWTH AFTER 5 DAYS 12/06/17 06:41 Blood-Venous Gram Stain - Final TEST NOT PERFORMED 12/06/17 06:30 Blood-Venous Blood Culture - Final NO GROWTH AFTER 5 DAYS 12/06/17 06:30 Blood-Venous Gram Stain - Final TEST NOT PERFORMED 12/06/17 17:06 Naris MRSA Culture (Admit) - Final MRSA NOT DETECTED Most Recent Lab Values WBC 5.4 K/uL (4.8-10.8) 12/16/17 04:40 RBC 3.02 Mil/uL (4.40-5.90) L 12/16/17 04:40 Hgb 9.0 g/dL (12.0-18.0) L 12/16/17 04:40 Hct 27.2 % (35.0-51.0) L 12/16/17 04:40 MCV 90.0 fl (80.0-94.0) 12/16/17 04:40 MCH 30.0 pg (27.0-31.0) 12/16/17 04:40 MCHC 33.3 g/dL (33.0-37.0) 12/16/17 04:40 RDW 18.4 % (11.5-14.5) H 12/16/17 04:40 Plt Count 90 K/uL (130-400) L 12/16/17 04:40 MPV 8.0 fl (7.2-11.7) 12/08/17 04:25 Neut % (Auto) 77.4 % (50.0-75.0) H 12/08/17 04:25 Lymph % (Auto) 11.8 % (20.0-40.0) L 12/08/17 04:25 Camas % (Auto) 9.5 % (0.0-10.0) 12/08/17 04:25 Eos % (Auto) 0.8 % (0.0-4.0) 12/08/17 04:25 Baso % (Auto) 0.5 % (0.0-2.0) 12/08/17 04:25 Neut # 4.5 K/uL (1.8-7.0) 12/08/17 04:25 Lymph # 0.7 K/uL (1.0-4.3) L 12/08/17 04:25 Camas # 0.5 K/uL (0.0-0.8) 12/08/17 04:25 Eos # 0.0 K/uL (0.0-0.7) 12/08/17 04:25 Baso # 0.0 K/uL (0.0-0.2) 12/08/17 04:25 PT 16.1 Seconds (9.8-13.1) H 12/13/17 06:55 INR 1.4 (0.9-1.2) H 12/13/17 06:55 APTT 26.6 Seconds (25.6-37.1) 12/13/17 06:55 Sodium 134 mmol/l (132-148) 12/16/17 04:40 Potassium 4.0 MMOL/L (3.6-5.0) 12/16/17 04:40 Chloride 102 mmol/L (98-107) 12/16/17 04:40 Carbon Dioxide 16 mmol/L (22-30) L 12/16/17 04:40 Anion Gap 20 (10-20) 12/16/17 04:40 BUN 68 mg/dl (9-20) H 12/16/17 04:40 Creatinine 9.4 mg/dl (0.8-1.5) H* D 12/16/17 04:40 Est GFR ( Amer) 7 12/16/17 04:40 Est GFR (Non-Af Amer) 6 12/16/17 04:40 POC Glucose (mg/dL) 80 mg/dL (65-110) 12/11/17 11:27 Random Glucose 105 mg/dL (75-110) 12/16/17 04:40 Hemoglobin A1c 4.6 % (4.2-6.5) 12/06/17 01:56 Calcium 8.5 mg/dL (8.4-10.2) 12/16/17 04:40 Phosphorus 5.3 mg/dl (2.5-4.5) H 12/07/17 04:30 Magnesium 2.4 MG/DL (1.6-2.3) H 12/07/17 04:30 Total Bilirubin 0.8 mg/dl (0.2-1.3) 12/09/17 07:16 AST 22 U/L (17-59) 12/09/17 07:16 ALT 23 U/L (21-72) 12/09/17 07:16 Alkaline Phosphatase 118 U/L (38-126) 12/09/17 07:16 Ammonia 19 umo/L (16-60) 12/08/17 17:29 Troponin I 0.0170 ng/mL (0.00-0.120) 12/06/17 01:56 Total Protein 6.6 G/DL (6.3-8.2) 12/09/17 07:16 Albumin 3.3 g/dL (3.5-5.0) L 12/09/17 07:16 Globulin 3.2 gm/dL (2.2-3.9) 12/09/17 07:16 Albumin/Globulin Ratio 1.0 (1.0-2.1) 12/09/17 07:16 Triglycerides 73 mg/DL (0-149) 12/06/17 01:56 Cholesterol 96 mg/dL (0-199) 12/06/17 01:56 LDL Cholesterol Direct < 30 mg/dL (0-129) 12/06/17 01:56 HDL Cholesterol 33 MG/DL (30-70) 12/06/17 01:56 Phenytoin 13.1 ug/ML (10-20) 12/06/17 11:36 Valproic Acid 59.7 ug/mL (50.0-100.0) 12/08/17 04:25 C. difficile Ag & Toxin Negative (NEGATIVE) 12/13/17 16:00 Hep Bs Antigen Negative (NEGATIVE) 12/09/17 07:19 Hep Bs Antibody Positive (NEGATIVE) 12/09/17 07:19 Hepatitis C Antibody Negative (NEGATIVE) 12/09/17 07:19 Blood Type A POSITIVE 12/09/17 01:46 Blood Type Confirm A POSITIVE 12/06/17 02:41 Antibody Screen Negative 12/09/17 01:46 Crossmatch See Detail 12/09/17 01:46 BBK History Checked Patient has bt 12/09/17 01:46 - Hospital Course Hospital Course: 72 year old male with hx of ESRD on HD MWF, liver cirrhosis with Upper GI bleed , [place] [facility] [place] GI bleed from esophageal Varices and discharged 11/29/17 after EGD and Transfusion of 2 PRBC, presented to [facility] ER because of RUE weakness and Slurred speech. CT of head showed : Subdural Hematoma with midline shift. Pt was admitted to ICU . Neurology and Neurosurgery consulted.He was started on Keppra for seizure prevention Due to coagulopathy and Thrombocytopenia patient is very high risk for any neurosurgical procedure , unable to get his numbers up to a safe level despite transfusion of FFP and Platelets. He was kept in ICU for close monitoring with repeat CT heads daily for monitoring Repeat CT head 12/15 showed improved bleed. Patient is neurologically stable, AAOx3 , answering questions appropriately , much improved During this hospitalization nephrology was consulted and he received his HD as scheduled. His blood cultures were reported as E. Coli and he was started on Iv antibiotics, while in hospital and ID was consulted . He received Meropenem, Zosyn and Flagyl for his diarrhea. patient is hemodynamically stable, afebrile, neurologically improved, CT head showed improvement. afebrile. PT was cosnulted and patient able to ambulate. Will discharge patient home with family . He has very good family support and care. Advise to continue with HD as scheduled at HD center. Will need to finish 5 more doses of Maxipime 500 mg IV post HD for his bacteremia. arrangements made with counter caser for patient to come to [facility] for infusion the dayus of his HD. Family and patient informed and agree with treatment Provided prescriptions to patient for the rest of his medications and counselled on diet , ETOH use Follow up with Dr. Rudi Caldwell 1. Subdural Hematoma with midline shift stable, neurologically repeat CT head 12/15 showed improvemnt Neurosurgery was consulted . Patient is very high risk for surgical intervention given his coagulopathy cont Kera for seizure prevention neurology , PT/OT consulted will d/c home 2. Seizure likely sec to SDH Seizure free since admission Continue Keppra Neurology following Ativan prn for breakthrough seizure EEG showed diffuse slowing 3. ESRD on HD cont with HD Dr Caldwell consulted had HD today 4. Liver Cirrhosis hx of Alcoholism cont Propranolol 10mg q 6 5. Thrombocytopenia and Coagulopathy likely sec to Cirrhosis Hematology Dr Lin consulted Pt had received VIT K IV and DDAVP was transfused Platelets and FFP however numbers remain low 6. Anemia , chronic hx of GI Bleed this month - [place] [facility] [place] 7. E.coli bacteremia 2 blood cultures positive for E.Coli Echo showed no vegetations ID consulted received Meropenem since 12/13 Zosyn and Flagyl renally dosed Given Maxipime tyoday 500 mg IV post HD Discussed with ID Dr. Olson. will discharge on Maxipime 5 doses more after HD 8. Hypertension better controlled cont norvasc, diovan, Propranolol to 10 mg q6 and Hydralazine 10 mg tid off Nicardipine drip 9. Diarrhea improved C.diff negative received flagyl empirically 10. DVT proph SCD pt has coagulopathy and thrombocytopenia, no anticoag Discharge Exam - Head Exam Head Exam: ATRAUMATIC, NORMAL INSPECTION, NORMOCEPHALIC - Eye Exam Eye Exam: EOMI, Normal appearance, PERRL Pupil Exam: NORMAL ACCOMODATION - ENT Exam ENT Exam: Mucous Membranes Moist, Normal Exam - Neck Exam Neck exam: Full Rom, Normal Inspection - Respiratory Exam Respiratory Exam: Clear to PA & Lateral, NORMAL BREATHING PATTERN. absent: Rales, Rhonchi, Wheezes - Cardiovascular Exam Cardiovascular Exam: REGULAR RHYTHM, RRR, +S1, +S2. absent: JVD - GI/Abdominal Exam GI & Abdominal Exam: Normal Bowel Sounds, Soft. absent: Distended, Guarding, Rebound, Tenderness - Rectal Exam Rectal Exam: Deferred - Extremities Exam Extremities exam: normal capillary refill, normal inspection, pedal pulses present - Back Exam Back exam: NORMAL INSPECTION - Neurological Exam Neurological exam: Alert, CN II-XII Intact, Oriented x3, Reflexes Normal - Psychiatric Exam Psychiatric exam: Normal Affect, Normal Mood - Skin Skin Exam: Dry, Intact, Normal Color, Warm Discharge Plan - Discharge Medications Prescriptions: amLODIPine [Norvasc] 10 mg PO DAILY #30 tab Calcium Acetate [Phoslo] 667 mg PO TID #90 tab Cefepime HCl [Maxipime] 500 mg IVP MWF #4 vial Cholestyramine [Questran] 4 gm PO DAILY #100 packet hydrALAZINE [Apresoline] 25 mg PO TID #90 tab levETIRAcetam [Keppra] 750 mg PO BID #30 tab Pantoprazole Sodium [Protonix] 40 mg PO DAILY #30 tablet. Propranolol HCl 10 mg PO Q6 #120 tablet Sucralfate [Carafate Tab] 1 gm PO BID #60 tab Valsartan [Diovan] 320 mg PO DAILY #30 tab Vitamin B Complex/Vit C/Folic [Nephro-Malachi] 1 tab PO DAILY #30 tab - Follow Up Plan Condition: STABLE Disposition: HOME/ ROUTINE Patient education suggested?: Yes Instructions: Subdural Hematoma (DC) Referrals: Rudi Caldwell MD [Staff Provider] -
== END 2017-12-16 16:43 | disposition home or self-care (01) | DRG 64 ==
LOC: H.ER → H.ERHOLD 03:37 → H.TEL 04:49 → H.ICU/CCU 07:00
PROVIDERS: ADMIT Internal Medicine; ATTEND Internal Medicine
PROC: 30233K1 Transfusion of Nonautologous Frozen Plasma into Peripheral Vein, Percutaneous Approach (ICD-10-PCS; principal; 2017-12-07)
PROC: 30233N1 Transfusion of Nonautologous Red Blood Cells into Peripheral Vein, Percutaneous Approach (ICD-10-PCS; 2017-12-07)
PROC: 5A1D70Z Performance of Urinary Filtration, Intermittent, Less than 6 Hours Per Day (ICD-10-PCS; 2017-12-07)
PROC: 5A1D70Z Performance of Urinary Filtration, Intermittent, Less than 6 Hours Per Day (ICD-10-PCS; 2017-12-09)
PROC: 5A1D70Z Performance of Urinary Filtration, Intermittent, Less than 6 Hours Per Day (ICD-10-PCS; 2017-12-11)
PROC: 5A1D70Z Performance of Urinary Filtration, Intermittent, Less than 6 Hours Per Day (ICD-10-PCS; 2017-12-14)
PROC: 5A1D70Z Performance of Urinary Filtration, Intermittent, Less than 6 Hours Per Day (ICD-10-PCS; 2017-12-16)
DX: I62.03 Nontraumatic chronic subdural hemorrhage (principal); N18.6 End stage renal disease; I12.0 Hypertensive chronic kidney disease with stage 5 chronic kidney disease or end stage renal disease; D69.59 Other secondary thrombocytopenia; D68.8 Other specified coagulation defects; R78.81 Bacteremia; I85.10 Secondary esophageal varices without bleeding; E83.39 Other disorders of phosphorus metabolism; N25.81 Secondary hyperparathyroidism of renal origin; R16.1 Splenomegaly, not elsewhere classified; R56.9 Unspecified convulsions; K70.30 Alcoholic cirrhosis of liver without ascites; Z99.2 Dependence on renal dialysis; D18.1 Lymphangioma, any site; F10.20 Alcohol dependence, uncomplicated; D63.1 Anemia in chronic kidney disease; R47.81 Slurred speech; R29.700 NIHSS score 0; B96.20 Unspecified Escherichia coli [E. coli] as the cause of diseases classified elsewhere; Z87.891 Personal history of nicotine dependence